=== PATIENT | female | born 1960 | race Asian ===

== ENCOUNTER → 2017-12-06 07:32 | Outpatient (CLI) | payer OTHER, SELFPAY ==
[2017-12-06 09:36] LABS: Thyroid Stim Hormone (TSH) 0.01 uIU/mL (0.358-3.74)
== END ==
PROVIDERS: Family Provider Nurse Practitioner; PCP Nurse Practitioner; Visit Provider Surgery
DX: E89.0 Postprocedural hypothyroidism (principal)
CPT/HCPCS: 36415; 84443

== ENCOUNTER → 2018-02-04 07:44 | Outpatient (CLI) | payer OTHER, SELFPAY ==
[2018-02-04 08:47] LABS: Thyroid Stim Hormone (TSH) 0.03 uIU/mL (0.358-3.74)
== END ==
PROVIDERS: Family Provider Nurse Practitioner; PCP Nurse Practitioner; Visit Provider Surgery
DX: E89.0 Postprocedural hypothyroidism (principal)
CPT/HCPCS: 36415; 84443

== ENCOUNTER → 2018-03-29 08:34 | Outpatient (CLI) | payer OTHER, SELFPAY ==
[2018-03-29 10:01] LABS: Thyroid Stim Hormone (TSH) 0.18 uIU/mL (0.358-3.74)
== END ==
PROVIDERS: Family Provider Nurse Practitioner; PCP Nurse Practitioner; Visit Provider Surgery
DX: E03.9 Hypothyroidism, unspecified (principal)
CPT/HCPCS: 36415; 84443

== ENCOUNTER → 2018-05-14 07:34 | Outpatient (CLI) | payer OTHER, SELFPAY ==
[2018-05-14 09:16] LABS: Thyroid Stim Hormone (TSH) 2.76 uIU/mL (0.358-3.74)
== END ==
PROVIDERS: Family Provider Nurse Practitioner; PCP Nurse Practitioner; Visit Provider Surgery
DX: E89.0 Postprocedural hypothyroidism (principal)
CPT/HCPCS: 36415; 84443

== ENCOUNTER → 2018-06-11 07:38 | Outpatient (CLI) | payer OTHER, SELFPAY ==
[2018-06-12 08:57] LABS: Amylase 57 U/L (25-115); Lipase 197 U/L (73-393); Thyroid Stim Hormone (TSH) 3.06 uIU/mL (0.358-3.74)
== END ==
PROVIDERS: Visit Provider Nurse Practitioner
DX: E89.0 Postprocedural hypothyroidism (principal)
CPT/HCPCS: 82150; 83690; 84443

== ENCOUNTER → 2018-07-08 07:38 | Outpatient (CLI) | payer OTHER, SELFPAY ==
[2018-07-08 08:46] LABS: Thyroid Stim Hormone (TSH) 0.82 uIU/mL (0.358-3.74)
== END ==
PROVIDERS: Family Provider Nurse Practitioner; PCP Nurse Practitioner; Visit Provider Nurse Practitioner
DX: E03.9 Hypothyroidism, unspecified (principal)
CPT/HCPCS: 36415; 84443

== ENCOUNTER → 2018-07-23 07:21 | Outpatient (CLI) | payer OTHER, SELFPAY ==
--- NOTE | 2018-07-23 07:23 | CT_ITS ---
STUDY: CT ABDOMEN AND PELVIS WITH CONTRAST REASON FOR EXAM: Female, 57 years old. Right upper quadrant abdominal pain for 6 months. RADIATION DOSAGE (If Supplied By Facility): CTDIvol = ( 30.9 ) mGy, DLP = ( 873.93 ) mGycm TECHNIQUE: Transaxial images were obtained from the dome of the diaphragm to the symphysis pubis with oral contrast. 100 ml of Isovue 300 contrast was administered. Sagittal and coronal images were reconstructed. Individualized dose optimization techniques were used for this CT. COMPARISON: Prior comparable comparison studies are not available for review at this time. FINDINGS: The visualized lung bases are unremarkable. The visualized portions of the heart are within normal limits. There is decreased attenuation of the liver consistent with steatosis. There are surgical clips in the gallbladder fossa consistent with a prior cholecystectomy. There is a small splenule ventral to the spleen. Normal spleen. Normal pancreas. Normal bilateral adrenal glands. There is a tiny cyst arising from the posterior cortex of the right kidney measuring approximately 4.8 mm in greatest dimension. There is small cystic lesions in the left kidney with the largest measuring 10.4 mm. This is too small to characterize. There is mild left-sided hydronephrosis. There appears to be a calculus at the left ureterovesical junction measuring approximately 6.9 mm in greatest dimension. Normal visualized stomach. There is no evidence for dilated bowel, ascites or pneumoperitoneum. The small bowel has a grossly normal appearance. Stool is visible throughout the colon with scattered colonic diverticula. There is non-visualization of the appendix. Normal abdominal aorta. Normal inferior vena cava. Normal retroperitoneum. The urinary bladder wall appears mildly thickened measuring up to 7.3 mm in thickness. There are calcifications in the right side of the uterus that may represent leiomyomata. There is a small umbilical hernia containing fat. Patient has had discectomies at L3-4, and L4-5 with surgical fusion via interpedicular screws and rods. The imaged thoracic and lumbar vertebral bodies have normal height and alignment. CT/Abdomen/Pelvis WITH Contrast IMPRESSION: 1. Moderate LEFT-sided hydronephrosis apparently related to distal left ureteral calculus at the ureterovesical junction. The calculus may be within a ureterocele. 2. Bilateral renal cysts. 3. Hepatic steatosis. 4. Cholecystectomy. Electronically Signed: Blanche Cook MD at 7:32 EDT , Service support ,
--- NOTE | 2018-07-23 07:23 | BI_ITS ---
MAMMOGRAPHY - BILATERAL SCREENING 3-D ELIAZAR SYNTHESIS REASON FOR EXAM: Female, 57 years old. Bilateral Screening 3-D tomosynthesis PERTINENT HISTORY: Asymptomatic. Family breast carcinoma, sister age 58 and paternal cousin 50s. TECHNIQUE: 2-D mammograms and 3-D Eliazar synthesis of the breast (s) were performed. CAD was performed. COMPARISON: 04/12/2017, 12/14/2015 and 10/06/2014. FINDINGS: The breast composition is heterogeneously dense that can obscure small breast masses. Scattered benign calcifications are seen. No dense spiculated masses or suspicious microcalcifications are identified. No architectural distortion is identified. There is no skin thickening or retraction. There has been no significant change since the prior study. BI/SCREENING MAMM (CAD), BILAT IMPRESSION: No mammographic signs of malignancy. Routine yearly mammograms recommended. ASSESSMENT CATEGORY: BIRADS Category 1: Negative. A letter regarding these results will be sent to the patient by the facility within 30 days. FOLLOW UP RECOMMENDATION: Yearly follow up mammogram recommended. (A) Any palpable lesion if present should be followed based on clinical grounds and biopsy performed if clinically persistent for 3 months or increasing size. Approximately 10% of breast cancers are not detected by mammography. A normal mammogram should not delay biopsy of a clinically suspicious abnormality. Dense breast tissue may obscure neoplasm. Electronically Signed: Romulo Rivera, at 13:21 EDT Tel , Service support ,
== END ==
PROVIDERS: Family Provider Nurse Practitioner; PCP Nurse Practitioner; Visit Provider Nurse Practitioner
DX: N13.2 Hydronephrosis with renal and ureteral calculous obstruction (principal); K76.0 Fatty (change of) liver, not elsewhere classified; R10.11 Right upper quadrant pain; Z12.31 Encounter for screening mammogram for malignant neoplasm of breast
CPT/HCPCS: 74177; 77063; 77067; Q9967

== ENCOUNTER → 2018-07-26 14:21 | Outpatient (CLI) | payer OTHER, SELFPAY ==
--- NOTE | 2018-07-26 14:28 | CDU_ITS ---
Reason For Study: Bruit/Vertigo Rt. Velocities/BP Lt. Velocities/BP Prox CCA 89.7/31.1 cm/sec. Prox CCA 101/38.5 cm/sec. Mid CCA 102/35.8 cm/sec. Mid CCA 107/40.9 cm/sec. Dist CCA 86.2/29.9 cm/sec. Dist CCA 99.8/33.8 cm/sec. Prox ICA 106/33 cm/sec. Prox ICA 91.5/32.8 cm/sec. Mid ICA 81.5/28.7 cm/sec. Mid ICA 72.7/28.1 cm/sec. Dist ICA 63.9/29.9 cm/sec. Dist ICA 69.8/31.1 cm/sec. Rt. ICA/CCA = 1.18. Lt. ICA/CCA = 0.91. Prox ECA 119/34.6 cm/sec. Prox ECA 85.6/22 cm/sec. Rt. Vert. 51.1/18.9 cm/sec. Lt. Vert. 34.8/13.8 cm/sec. Right Extracranial There is no significant atherosclerotic plaque noted in the right common carotid artery. There is heterogeneous, smooth atherosclerotic plaque noted in the right internal carotid artery. There is no significant atherosclerotic plaque noted in the right external carotid artery. Antegrade flow is noted in the right vertebral artery. Left Extracranial There is intimal thickening but no significant atherosclerotic plaque noted in the left common carotid artery. There is intimal thickening but no significant atherosclerotic plaque noted in the left internal carotid artery. There is no significant atherosclerotic plaque noted in the left external carotid artery. Antegrade flow is noted in the left vertebral artery. Procedure Carotid Duplex [id number]. Exam performed in department. Interpretation Summary Minimal smooth plague at the proximal right internal carotid with <50% stenosis. Normal flow right external carotid No hemodynamically significant plague or stenosis proximal left internal carotid with <50% stenosis. Normal flow left external carotid Patent and antegrade vertebrals bilaterally Ordering Physician: FLOWER ARGUETA Referring Physician: Flower Argueta Risk Performed By: Keturah Mcarthur RVT, RDCS and Student
== END ==
PROVIDERS: Family Provider Nurse Practitioner; PCP Nurse Practitioner; Referring Provider Nurse Practitioner; Visit Provider Nurse Practitioner
DX: R09.89 Other specified symptoms and signs involving the circulatory and respiratory systems (principal)
CPT/HCPCS: 93880

== ENCOUNTER 2018-07-30 06:25 | Day surgery (SDC) | payer OTHER, SELFPAY ==
[2018-07-30 06:44] VITALS: BP 99/73; PULSE 77; RESP 16; TEMP 36.1; O2SAT 94; BMI 29.9
[2018-07-30] MEDS: Ciprofloxacin 400 MG/200 ML BAG 200 MG IV (07:50)
--- NOTE | 2018-07-30 08:06 | DCINST_ITS ---
Discharge Diet: No Restrictions Discharge Activity: May not drive while taking narcotic pain medications. May resume sexual activity in: 1 week Call your doctor if you observe: Fever of 101 or Higher, Inability to urinate, Inability to have a bowel movement, Shortness of breath, Chest pain, Calf discomfort, Uncontrolled pain Allergies/Adverse Reactions: Allergies cefdinir Allergy (Verified 07/29/18 08:03) RASH Penicillins Allergy (Verified 07/29/18 08:03) Hives Sulfa (Sulfonamide Antibiotics) Allergy (Verified 07/29/18 08:03) Hives tetracycline [Tetracycline] Allergy (Verified 07/29/18 08:03) Hives ANIMAL DANDER Allergy (Uncoded 07/29/18 08:03) Other CERTAIN BEERS Allergy (Uncoded 07/29/18 08:03) Shortness of breath NOT ALL BEERS OR ALCOHOL. ENVIRONMENTAL Allergy (Uncoded 07/29/18 08:03) Other Medications to take at Discharge Cetirizine HCl [Zyrtec] 10 mg PO QHS 12/12/13 Fenofibrate [Tricor] 145 mg PO QHS 12/12/13 Fesoterodine Fumarate [Toviaz] 8 mg PO DAILY 12/12/13 Hydrochlorothiazide 12.5 mg PO DAILY 12/12/13 Ipratropium [Atrovent Inhaler] 1 puff INHALATION PRN PRN 12/12/13 Lisinopril [Zestril] 10 mg PO DAILY 12/12/13 Aspirin E.C. [Ecotrin] 81 mg PO DAILY@0800 09/18/17 Duloxetine Hcl [Cymbalta] 60 mg PO QHS 09/18/17 Metoprolol Succinate [Toprol Xl] 25 mg PO DAILY 09/24/17 omega 0-nve-oon-fish oil 1,000 mg (120 mg-180 mg) capsule 3 cap PO .q daily cap 06/11/18 levothyroxine 100 mcg capsule 100 mcg PO DAILY 07/25/18 Primary Care Physician: Maribel Clarke NP-C [Primary Care Provider] - Test Results: Test results from this visit will be discussed in further detail at your follow- up appointment, if applicable. Please Follow Up With: Hollie Lebron MD When: call for appt Proposed Discharge Date: 07/30/18
[2018-07-30 08:46] VITALS: BP 95/66; BP 99/73; PULSE 85; RESP 18; TEMP 37.1; O2SAT 96
[2018-07-30 08:54] VITALS: BP 88/62; BP 99/73; PULSE 87; RESP 18; O2SAT 95
--- NOTE | 2018-07-30 08:55 | PCM.IMDPSTOP ---
Immediate Post-Op Note Date of Procedure: 07/30/18 Primary Surgeon/Physician: Hollie Lebron MD grinder set up operator external: Hollie Lebron Pre-Operative Diagnosis: left distal ureteral calculus Post-Operative Diagnosis: same, passed Surgery/Procedure Performed:: cystoscopy, left retrograde pyelogram, left ureteroscopy, urethral dilation Description of Surgical Findings:: small urethral meatus, cystitis cystica. retrograde pyelogram normal. ureteroscopy to renal pelvis. no stones. ureteral orifices close to bladder neck. Estimated Blood Loss: 2cc Specimen's removed: none Type of Anesthesia:: General Special Medications: cipro - Admit VTE Documentation VTE Present on Admission: Yes VTE Mechan Device Prophylaxis: SCD's VTE Pharm Prophylaxis ordered?: No Reason prophylaxis not ordered:: Treatment Not Indicated
--- NOTE | 2018-07-30 08:58 | OP.PN_ITS ---
Immediate Post-Op Note Date of Procedure: 07/30/18 Primary Surgeon/Physician: Hollie Lebron MD funeral driver: Hollie Lebron Pre-Operative Diagnosis: left distal ureteral calculus Post-Operative Diagnosis: same, passed Surgery/Procedure Performed:: cystoscopy, left retrograde pyelogram, left ureteroscopy, urethral dilation Description of Surgical Findings:: small urethral meatus, cystitis cystica. retrograde pyelogram normal. ureteroscopy to renal pelvis. no stones. ureteral orifices close to bladder neck. Estimated Blood Loss: 2cc Specimen's removed: none Type of Anesthesia:: General Special Medications: cipro - Admit VTE Documentation VTE Present on Admission: Yes VTE Mechan Device Prophylaxis: SCD's VTE Pharm Prophylaxis ordered?: No Reason prophylaxis not ordered:: Treatment Not Indicated
[2018-07-30 09:13] VITALS: BP 86/59; BP 99/73; PULSE 86; RESP 18; O2SAT 98
[2018-07-30 09:28] VITALS: BP 88/53; BP 99/73; PULSE 82; RESP 18; TEMP 37.2; O2SAT 98
--- NOTE | 2018-07-30 10:00 | PCM.OPRPT ---
Problem List (1) Left ureteral calculus Status: Acute (2) Hydronephrosis Status: Acute Report of Operation Date of Procedure: 07/30/18 Pre-Operative Diagnosis: left distal ureteral calculus Post-Operative Diagnosis: same, passed Surgery/Procedure Performed:: cystoscopy, left retrograde pyelogram, left ureteroscopy, urethral dilation Description of Surgical Findings:: small urethral meatus, cystitis cystica. retrograde pyelogram normal. ureteroscopy to renal pelvis. no stones. ureteral orifices close to bladder neck. meteorology teacher: Hollie Lebron Type of Anesthesia:: General Special Medications: cipro Specimen's removed: none Estimated Blood Loss (mL): 2cc Description of Procedure: The patient is a 57-year-old female identified as having a distal left ureteral calculus with hydronephrosis on a CT scan evaluation done for pain. After discussing all the risks benefits and alternatives, she agreed to proceed with surgical intervention. She was taken to the operating room and placed on the operating room table. Anesthesia monitored the head, neck, airway, IV access and vital signs throughout the case. Once anesthesia was appropriately administered the patient was placed into dorsal lithotomy position was prepped and draped in usual sterile fashion. The scope was unable to pass through the urethral meatus and the urethra was dilated from 16 [place]ian to 26 [place]ambian without difficulty. At this time a cystourethroscopy was performed revealing no evidence of erythema, mass, ulceration or foreign body within the urinary bladder. The ureteral orifices bilaterally were located very close to the bladder neck on the area of the trigone. The left ureteral orifice was then intubated with an 8 [place]ian cone-tip catheter. A retrograde pyelogram was performed under fluoroscopic visualization revealing no evidence of filling defect or hydronephrosis or dilation of the ureter. At this time a 0.035 Glidewire was passed into the renal pelvis without difficulty. A semirigid ureteroscopy was performed all the way to the level of the renal pelvis confirmed on fluoroscopy. No stone, filling defect or mucosal abnormality was identified. The patient's bladder was then emptied, the scope and the wire were removed. She was then awakened and taken to the recovery room in good condition. There were no complications during this procedure. Grafts/Implants Used: none - Complications none - Admit VTE Documentation VTE Present on Admission: Yes VTE Mechan Device Prophylaxis: SCD's VTE Pharm Prophylaxis ordered?: No Reason prophylaxis not ordered:: Treatment Not Indicated
--- NOTE | 2018-07-30 10:04 | OP.PCM_ITS ---
Problem List (1) Left ureteral calculus Status: Acute (2) Hydronephrosis Status: Acute Report of Operation Date of Procedure: 07/30/18 Pre-Operative Diagnosis: left distal ureteral calculus Post-Operative Diagnosis: same, passed Surgery/Procedure Performed:: cystoscopy, left retrograde pyelogram, left ureteroscopy, urethral dilation Description of Surgical Findings:: small urethral meatus, cystitis cystica. retrograde pyelogram normal. ureteroscopy to renal pelvis. no stones. ureteral orifices close to bladder neck. hotel clerk: Hollie Lebron Type of Anesthesia:: General Special Medications: cipro Specimen's removed: none Estimated Blood Loss (mL): 2cc Description of Procedure: The patient is a 57-year-old female identified as having a distal left ureteral calculus with hydronephrosis on a CT scan evaluation done for pain. After discussing all the risks benefits and alternatives, she agreed to proceed with surgical intervention. She was taken to the operating room and placed on the operating room table. Anesthesia monitored the head, neck, airway, IV access and vital signs throughout the case. Once anesthesia was appropriately administered the patient was placed into dorsal lithotomy position was prepped and draped in usual sterile fashion. The scope was unable to pass through the urethral meatus and the urethra was dilated from 16 [place]er to 26 [place] Konger without difficulty. At this time a cystourethroscopy was performed revealing no evidence of erythema, mass, ulceration or foreign body within the urinary bladder. The ureteral orifices bilaterally were located very close to the bladder neck on the area of the trigone. The left ureteral orifice was then intubated with an 8 [place] Konger cone-tip catheter. A retrograde pyelogram was performed under fluoroscopic visualization revealing no evidence of filling defect or hydronephrosis or dilation of the ureter. At this time a 0.035 Glidewire was passed into the renal pelvis without difficulty. A semirigid ureteroscopy was performed all the way to the level of the renal pelvis confirmed on fluoroscopy. No stone, filling defect or mucosal abnormality was identified. The patient's bladder was then emptied, the scope and the wire were removed. She was then awakened and taken to the recovery room in good condition. There were no complications during this procedure. Grafts/Implants Used: none - Complications none - Admit VTE Documentation VTE Present on Admission: Yes VTE Mechan Device Prophylaxis: SCD's VTE Pharm Prophylaxis ordered?: No Reason prophylaxis not ordered:: Treatment Not Indicated
[2018-07-30 10:15] VITALS: BP 100/66; BP 99/73; PULSE 82; RESP 16; TEMP 36.6; O2SAT 98
== END 2018-07-30 10:17 | disposition home or self-care (01) ==
LOC: SDC 06:25 → AC 06:26
PROVIDERS: Family Provider Nurse Practitioner; PCP Nurse Practitioner; Referring Provider Urology; Visit Provider Urology
PROC: (CPT 52356; principal; 2018-07-30 07:50)
DX: N13.2 Hydronephrosis with renal and ureteral calculous obstruction (principal); Z87.442 Personal history of urinary calculi; I10 Essential (primary) hypertension; R01.1 Cardiac murmur, unspecified; J45.998 Other asthma; E78.00 Pure hypercholesterolemia, unspecified; Z79.82 Long term (current) use of aspirin; Z79.899 Other long term (current) drug therapy
CPT/HCPCS: 52005; 76000; J7120; C1769; J0744; J2405

== ENCOUNTER → 2018-11-06 20:57 | Outpatient (CLI) | payer OTHER, SELFPAY ==
[2018-11-06 18:32] VITALS: BMI 30.7
[2018-11-06 21:21] LABS: Thyroid Stim Hormone (TSH) 6.25 uIU/mL (0.358-3.74)
== END ==
PROVIDERS: Family Provider Nurse Practitioner; PCP Nurse Practitioner; Referring Provider Nurse Practitioner; Visit Provider Nurse Practitioner
DX: E03.9 Hypothyroidism, unspecified (principal)
CPT/HCPCS: 84443

== ENCOUNTER → 2019-01-08 07:45 | Outpatient (CLI) | payer OTHER, SELFPAY ==
[2018-11-06 18:32] VITALS: BMI 30.7
[2019-01-08 09:57] LABS: Thyroid Stim Hormone (TSH) 1.23 uIU/mL (0.358-3.74)
== END ==
PROVIDERS: Family Provider Nurse Practitioner; PCP Nurse Practitioner; Referring Provider Nurse Practitioner; Visit Provider Nurse Practitioner
DX: E03.9 Hypothyroidism, unspecified (principal)
CPT/HCPCS: 36415; 84443

== ENCOUNTER → 2019-07-07 07:37 | Outpatient (CLI) | payer OTHER, SELFPAY ==
[2019-06-26 22:17] VITALS: BMI 30.5
== END ==
PROVIDERS: Family Provider Nurse Practitioner; PCP Nurse Practitioner; Referring Provider Nurse Practitioner; Visit Provider Nurse Practitioner
DX: E03.9 Hypothyroidism, unspecified (principal)
CPT/HCPCS: 36415; 84443

== ENCOUNTER 2020-01-23 08:34 | Emergency (ER) | payer OTHER, SELFPAY ==
[2020-01-12 18:51] VITALS: BMI 31.2
[2020-01-23 08:36] VITALS: BP 120/86; PULSE 119; RESP 16; TEMP 36.4; O2SAT 97
[2020-01-23 08:40] VITALS: BP 125/86; PULSE 120; RESP 16; TEMP 36.4; O2SAT 96; BMI 31.0
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
[2020-01-23] MEDS: Ibuprofen 600 MG Tablet PO (09:36)
[2020-01-23 10:46] VITALS: BP 106/83; PULSE 107; RESP 16; O2SAT 98
== END 2020-01-23 10:48 | disposition home or self-care (01) ==
LOC: ED 09:54
PROVIDERS: Emergency Provider Emergency Medicine; PCP Nurse Practitioner; Referring Provider Emergency Medicine
DX: S80.02XA Contusion of left knee, initial encounter (principal); S20.212A Contusion of left front wall of thorax, initial encounter; V49.88XA Car occupant (driver) (passenger) injured in other specified transport accidents, initial encounter; Y92.410 Unspecified street and highway as the place of occurrence of the external cause; Y93.89 Activity, other specified; I10 Essential (primary) hypertension; E03.9 Hypothyroidism, unspecified; F17.200 Nicotine dependence, unspecified, uncomplicated
CPT/HCPCS: 71046; 73564; 99285

== ENCOUNTER 2020-01-23 12:55 | Observation (INO) | payer OTHER, SELFPAY ==
[2020-01-23] VITALS (7 sets, daily range): BP systolic 107–127; BP diastolic 59–86; PULSE 65–113; RESP 16–17; TEMP 36.3–36.8; O2SAT 96–98; BMI 31.0; BMI 30.4; BMI 30.3
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
[2020-01-23 13:42] LABS: Absolute Lymphocyte Count 3.31 X10^3/uL (0.83-4.51); Absolute Neutrophil Count 3.4 X10^3/uL (2.0-7.7); Basophil# 0.04 X10^3/uL; Basophil% 0.6 % (0-1); Eosinophils% 2.8 % (0-5); Hematocrit 41.1 % (37-47); Hemoglobin 13.8 g/dL (12.0-15.0); Lymphocyte # 3.31 X10^3/ul (4.0); Lymphocyte % 45.5 % (19-41); Mean Corp Hgb Conc 33.6 g/dL (32-36); Mean Corpuscular Hgb 29.2 pg (27.0-32.0); Mean Corpuscular Volume 87.1 fL (81-99); Mean Platelet Vol. 8.9 fl (6.2-12.0); Monocyte# 0.32 X10^3/uL; Monocyte% 4.4 % (0-10); NRBC Flagged by Analyzer 0 % (0-5); Neutrophil # 3.37 X10^3/uL (2.7-7.7); Neutrophil % 46.3 % (47-70); Platelet Count 366 K/mm3 (150-450); RBC Distribution Width CV 12.5 % (11.6-14.6); RBC Distribution Width SD 39.8 fl (35.1-43.9); Red Blood Count 4.72 M/mm3 (4.2-5.4); White Blood Count 7.3 K/mm3 (4.4-11.0)
[2020-01-23 13:56] LABS: Anion Gap 8 (5-15); BUN 13 mg/dL (7-18); BUN/Creat Ratio 17.7 RATIO (10-20); Calcium,Total 9.3 mg/dL (8.5-10.1); Chloride 104 mmol/L (98-107); Creatinine, Serum 0.74 mg/dL (0.55-1.02); EST Glomerular Filtration Rate 86 mL/min (>60); Est Glom Filt Rate - Afr Amer 104 mL/min (>60); Glucose 115 mg/dL (74-106); Sodium Level 138 mmol/L (136-145)
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
[2020-01-23] MEDS: Acetaminophen 325 MG Tablet 650 MG PO (20:22)
[2020-01-23] MEDS: Aspirin 325 MG Tablet PO (20:22)
[2020-01-23] MEDS: Loratadine 10 MG Tablet PO (21:30)
[2020-01-23] MEDS: DULoxetine Hcl 60 MG Capsule PO (21:30)
[2020-01-23] MEDS: Fenofibrate 145 MG Tablet PO (21:30)
[2020-01-23] MEDS: 0.9% Saline Lock 10 ML Syringe IV (21:30)
[2020-01-24 01:40] VITALS: O2SAT 98
[2020-01-24 03:00] VITALS: PULSE 75
[2020-01-24 03:30] VITALS: BP 100/65; BP 109/71; BP 121/84; PULSE 79; PULSE 85; PULSE 87; RESP 18; TEMP 36.4; O2SAT 97
[2020-01-24] MEDS: Levothyroxine 88 MCG Tablet PO (05:22)
[2020-01-24 07:01] VITALS: PULSE 82
[2020-01-24 08:03] LABS: Cholesterol 239 mg/dL (200); High Density Lipoprotein 45 mg/dL; Triglycerides 228 mg/dL; Very Low Density Lipoprotein 46 mg/dL (5-40)
[2020-01-24] MEDS: Aspirin 81 MG TAB.CHEW PO (08:27)
[2020-01-24] MEDS: Tolterodine Tartrate 4 MG CAP.SA PO (08:27)
[2020-01-24] MEDS: Multivitamins,Ther W-Minerals Tablet 1 TABLET PO (08:27)
[2020-01-24] MEDS: hydroCHLOROthiazide 12.5mg 12.5 MG PO (08:28)
[2020-01-24] MEDS: Lisinopril 10 MG Tablet PO (08:28)
[2020-01-24 09:24] LABS: Anion Gap 8 (5-15); BUN 12 mg/dL (7-18); BUN/Creat Ratio 18.7 RATIO (10-20); Calcium,Total 9.1 mg/dL (8.5-10.1); Chloride 107 mmol/L (98-107); Creatinine, Serum 0.64 mg/dL (0.55-1.02); EST Glomerular Filtration Rate 101 mL/min (>60); Est Glom Filt Rate - Afr Amer 122 mL/min (>60); Estimated Creatinine Clearance 99.48 ml/min; Glucose 103 mg/dL (74-106); Magnesium 1.6 mg/dL (1.6-2.6); Potassium 3.8 mmol/L (3.5-5.1); Sodium Level 139 mmol/L (136-145)
[2020-01-24 09:30] VITALS: BP 116/80; PULSE 85; RESP 16; TEMP 36.7; O2SAT 95
[2020-01-24] MEDS: Atorvastatin Calcium 40 MG Tablet PO (10:13)
--- NOTE | 2020-01-24 10:20 | PCM.DC ---
- Discharge Diagnoses Current Active Problems: Current Active and Chronic Problems (Last Reviewed 01/23/20 @ 17:[address] Terrell Lawson, DO) Posttraumatic amnesia (Acute) Hypokalemia (Acute) Transient confusion (Acute) You will use the following diet at home:: Cardiac Your food should be the consistency of: Regular Discharge Activity: May Not Drive - until sees PCP Weight Bearing Status: Weight bearing as tolerated Call your doctor if you observe: Fever of 101 or Higher, Inability to urinate, Inability to have a bowel movement, Using more than one pad per hour, Shortness of breath, Dizziness, Fainting spells, Swelling in the ankles, Chest pain, Prolonged hiccoughing, Increased palpitations (irregular heartbeat), Calf discomfort, Uncontrolled pain Allergies/Adverse Reactions: Allergies cefdinir Allergy (Verified 01/23/20 12:58) RASH Penicillins Allergy (Verified 01/23/20 12:58) Hives Sulfa (Sulfonamide Antibiotics) Allergy (Verified 01/23/20 12:58) Hives tetracycline [Tetracycline] Allergy (Verified 01/23/20 12:58) Hives ANIMAL DANDER Allergy (Uncoded 01/23/20 12:58) Other CERTAIN BEERS Allergy (Uncoded 01/23/20 12:58) Shortness of breath NOT ALL BEERS OR ALCOHOL. ENVIRONMENTAL Allergy (Uncoded 01/23/20 12:58) Other Medications to take at Discharge fesoterodine 8 mg tablet,extended release 24 hr 8 mg PO DAILY 06/26/19 duloxetine 60 mg capsule,delayed release 60 mg PO QHS #90 cap 01/12/20 fenofibrate nanocrystallized 145 mg tablet 145 mg PO QHS #90 tab 01/12/20 hydrochlorothiazide 12.5 mg capsule 12.5 mg PO DAILY #90 cap 01/12/20 levothyroxine 88 mcg tablet 88 mcg PO DAILY #90 tab 01/12/20 lisinopril 10 mg tablet 10 mg PO DAILY #90 tab 01/12/20 Aspirin/Acetaminophen/Caffeine [Excedrin Migraine Caplet] 2 tab PO DAILY PRN 01/23/20 Multivitamin with Minerals [Multiple Vitamin] 1 tab PO DAILY 01/23/20 Zolpidem Tartrate [Ambien] 10 mg PO QHS PRN 01/23/20 Atorvastatin Calcium [Lipitor] 40 mg PO DAILY #30 tab 01/24/20 Cetirizine HCl [Zyrtec] 10 mg PO QHS PRN PRN #0 01/24/20 The following prescriptions were given: Atorvastatin Calcium [Lipitor] 40 mg PO DAILY #30 tab Transmission Status: Pending to [facility] Primary Care Physician: Maribel Clarke NP-C [Primary Care Provider] - Please follow up with your Primary Care Physician in: IN 1-2 WEEKS Test Results: Test results from this visit will be discussed in further detail at your follow-up appointment, if applicable. Please Follow Up With: Gerardo Bob MD When: IN 2-3 Weeks for episode of AMS, Confusion, possible concussion
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
[2020-01-24 11:02] VITALS: PULSE 84
[2020-01-24 11:50] VITALS: BMI 30.3
== END 2020-01-24 10:22 | disposition home or self-care (01) ==
LOC: ED 16:18 → PCU 01-24 06:56
PROVIDERS: Emergency Provider Emergency Medicine; PCP Nurse Practitioner; Visit Provider Internal Medicine
DX: R41.3 Other amnesia (principal); E87.6 Hypokalemia; E03.9 Hypothyroidism, unspecified; I10 Essential (primary) hypertension; R07.89 Other chest pain; F39 Unspecified mood [affective] disorder; F17.200 Nicotine dependence, unspecified, uncomplicated; E78.5 Hyperlipidemia, unspecified; K21.9 Gastro-esophageal reflux disease without esophagitis; J45.909 Unspecified asthma, uncomplicated; M19.90 Unspecified osteoarthritis, unspecified site; D68.51 Activated protein C resistance; M25.562 Pain in left knee; M25.561 Pain in right knee; R47.81 Slurred speech; M79.7 Fibromyalgia; G43.909 Migraine, unspecified, not intractable, without status migrainosus; Z79.899 Other long term (current) drug therapy; Z79.82 Long term (current) use of aspirin; Z87.828 Personal history of other (healed) physical injury and trauma; R00.0 Tachycardia, unspecified; H53.8 Other visual disturbances
CPT/HCPCS: 36415; 70450; 70544; 70549; 70551; 80048; 80061; 83735; 84484; 85025; 92523; 93005; 94762; 95819; 99218; 99285; A9575; A4216; G0378

== ENCOUNTER → 2020-01-29 09:48 | Outpatient (CLI) | payer OTHER, SELFPAY ==
[2020-01-29 09:25] VITALS: BMI 30.8
[2020-01-29 10:38] LABS: Vitamin B12 693 pg/mL (211-911)
[2020-01-29 10:54] LABS: AST(SGOT) 23 U/L (15-37); Alanine Aminotransfer ALT/SGPT 40 U/L (13-56); Albumin, Serum 4.3 g/dL (3.2-5.0); Alkaline Phosphatase 69 U/L (45-117); Bilirubin, Direct 0.08 mg/dL (0.00-0.30); Globulin 3.7 g/dL (2.2-4.2); Thyroid Stim Hormone (TSH) 2.78 uIU/mL (0.358-3.74)
== END ==
PROVIDERS: PCP Nurse Practitioner; Referring Provider Psychiatry & Neurology Neurology; Visit Provider Psychiatry & Neurology Neurology
DX: R41.0 Disorientation, unspecified (principal); I10 Essential (primary) hypertension; E03.9 Hypothyroidism, unspecified
CPT/HCPCS: 36415; 80076; 82607; 82746; 84443

== ENCOUNTER → 2020-02-06 20:04 | Outpatient (CLI) | payer OTHER, SELFPAY ==
[2020-01-29 09:25] VITALS: BMI 30.8
== END ==
PROVIDERS: PCP Nurse Practitioner; Visit Provider Psychiatry & Neurology Neurology
DX: G47.30 Sleep apnea, unspecified (principal)
CPT/HCPCS: 95810

== ENCOUNTER → 2020-03-11 20:00 | Outpatient (CLI) | payer OTHER, SELFPAY ==
[2020-02-19 07:58] VITALS: BMI 30.3
== END ==
PROVIDERS: PCP Nurse Practitioner; Referring Provider Nurse Practitioner Acute Care; Visit Provider Nurse Practitioner Acute Care
DX: G47.33 Obstructive sleep apnea (adult) (pediatric) (principal)
CPT/HCPCS: 95811

== ENCOUNTER → 2020-03-23 09:52 | Outpatient (CLI) | payer OTHER, SELFPAY ==
[2020-03-04 08:47] VITALS: BMI 30.3
== END ==
PROVIDERS: PCP Nurse Practitioner; Visit Provider Nurse Practitioner Acute Care
DX: G47.33 Obstructive sleep apnea (adult) (pediatric) (principal)

== ENCOUNTER → 2020-03-25 11:29 | Outpatient (CLI) | payer OTHER, SELFPAY ==
[2020-03-04 08:47] VITALS: BMI 30.3
== END ==
PROVIDERS: PCP Nurse Practitioner; Referring Provider Nurse Practitioner Acute Care; Visit Provider Nurse Practitioner Acute Care
DX: G47.33 Obstructive sleep apnea (adult) (pediatric) (principal)

== ENCOUNTER → 2020-12-24 13:59 | Outpatient (CLI) | payer OTHER, SELFPAY ==
[2020-12-23 18:56] VITALS: BMI 31.1
== END ==
PROVIDERS: PCP Nurse Practitioner; Visit Provider Nurse Practitioner
DX: E03.9 Hypothyroidism, unspecified (principal)
CPT/HCPCS: 36415; 84443

== ENCOUNTER 2021-03-16 08:00 | Outpatient (RCR) | payer OTHER, SELFPAY ==
[2021-01-10 08:55] VITALS: BMI 30.4
--- NOTE | 2021-02-15 09:32 | HP.OTEVAL_ITS ---
Patient's Visit Information DANIEL WHITE is a 60 year old F, referred to Occupational Therapy by PIERRE ZHAO, with a diagnosis of left CTS, left CMC. Date of Evaluation: 02/14/21 Occupational Therapist: Jackie Lau, NIKOLAI/Benjamin, CHT - Subjective This 60 year old female was seen for OT eval with dx with left CTS, localized primary osteoarthritis of CMC joint- , trigger finger left middle finger. pt states she noticed her thumb started to bother her last year when she went started to play golf again. pt states he clubs are newer but has pain when she plays- pt did see Dr. Forbes on 02/01/21 to discuss with pt options for her dx of CTS, trigger finger and her cmc arthritis. pt opted to cont. with cortisone shot, bracing 1st. - Pain left hand 4 Pain Intensity Range: 1, 5 - ROM CMC: left 15 right 15 MP: left 40 right 50 IP: left 40 right 60 Radial Abduction: left 30 right 35 - Strength Inspector Multifocal Lens: left 30#right 50# Lateral Pinch: left 6# right 18# Tripod Pinch: left 8# with pain right 14# Strength Comments: pt has pain with resistive pinch - Sensation Thumb: right 2.83 left 2.83 Index: right 2.83 left 2.83 Middle: right 2.83 left 2.83 Ring: right 2.83 left 2.83 Little: right 2.83 left 2.83 Sensation Comments: denies during the day- stated would have tingling at night or wake up with tingling while sleeping - Goals Goal:: pt will demo a 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 with ADLs and IADLS by d.c Goal:: Pt will report pain no greater than 1/10 with use of affected hand with BADLs and IADLs by d/c. Goal:: Pt will demo understanding of joint protection and ergonomics when performing BADLs and IADLs by d/c. Pt will demo understanding of adaptive Equipment use to decrease stress on joints to allow pt to perform BADSL and IADLS at OLMAN level. Goal:: Pt will demo ind. Donning/doffing of custom orthosis by end of 1st session. Pt will demonstrate understanding of orthosis use and precautions by end of 1st session and demonstrate knowledge of returning to clinic if orthosis needs adj. to increase comfort by end of 1st session. - Rehabilitation General Assessment: pt arrives to OT 1 week and 6 days from cortisone shot in left cmc, left MF, and and Carpal tunnel region- pt states she has noticed the constant pain and now just has pain at times of joint stress. PT demo with li mited left thumb ROM and pain with lateral and tripod pinch. pt is limited with ADLs and IADls at this time due to pain. pt would benefit from skilled OT services 1x week for 4 weeks to ed. pt on joint protection, supportive bracing, and conservative modalities to decrease pain and increase her IND with ADLs and IADLs. Today therapist mariposa. custom thumb spica orthosis with IP free for night use. Therapist will cont. to ed. pt on thumb care, joint protection and modifications to golf pump room operator as able. Rehabilitation Potential: Good - Anticipated Interventions A/AAROM/PROM, Orthoses, Joint Protection/Energy Conservation, Ergonomic Education, Education re assistive Equipment, Education re Diagnosis Other Interventions: thumb stabilization exercises - Visit Plan Frequency: 1x/Week Duration: 4 Weeks TEXT: Thank you for the opportunity to evaluate your patient. For Medicare and Medicare HMO plans, please review the plan of care and approve it. It will need to be FAXED BACK to us at [phone] for Medicare purposes. Please let me know if there are questions or concerns regarding this plan of care. Physician Signature: Date:
--- NOTE | 2021-07-27 09:41 | HP.OT.NRP ---
DANIEL WHITE was seen in my office for initial evaluation on 02/14/21. The following Plan of Care was established for this patient: Initial Frequency: 1x/Week Initial Duration: 4 Weeks Plan: cont with PRE. thumb stabilization ex Anticipated Interventions: A/AAROM/PROM, Orthoses, Joint Protection/Energy Conservation, Ergonomic Education, Education re assistive Equipment, Education re Diagnosis Other Interventions: thumb stabilization exercises This patient was last seen in our office 03/16/21. Pertinent comments regarding their Occupational therapy will appear below: pt last seen 03/16/21 and due to time lapse in services pt d/c At this point I will be discontinuing this patient from occupational therapy. I would be happy to see this patient again in the future if found appropriate by the physician. Thank you! Jackie Lau, OTR/L, CHT
== END 2021-03-16 19:00 | disposition home or self-care (01) ==
LOC: OT 08:00
PROVIDERS: PCP Nurse Practitioner
DX: G56.02 Carpal tunnel syndrome, left upper limb (principal); M18.12 Unilateral primary osteoarthritis of first carpometacarpal joint, left hand; M65.332 Trigger finger, left middle finger
CPT/HCPCS: 97035; 97110; 97140; 97165; 97166; 97760

== ENCOUNTER → 2021-04-27 06:37 | Outpatient (CLI) | payer OTHER, SELFPAY ==
[2021-01-10 08:55] VITALS: BMI 30.4
--- NOTE | 2021-04-27 06:38 | MRI_ITS ---
STUDY: MRI RIGHT KNEE REASON FOR EXAM: Right knee pain and swelling for 2-3 years, ACL repair in 1998. TECHNIQUE: Standardized fat and water weighted pulse sequences were obtained in all 3 orthogonal planes. COMPARISON: Radiographs 01/10/2021 and MRI report 03/11/2009. FINDINGS: There is a very small vertical/oblique tear of the inferior articular surface of the posterior horn of the medial meniscus (proton-density sagittal images 29, 30). There is arthrosis of the medial femorotibial compartment with small marginal osteophytes of the medial femoral condyle and chondral thinning/irregularity of the medial femoral condyle (T2 sagittal image 17). Normal medial femoral condyle and tibial plateau. Normal medial collateral ligamentous complex (MCL). Normal distal semimembranosus, gracilis and semitendinosus tendons. There is a very small oblique tear of the inferior articular surface of the posterior horn of the lateral meniscus (proton-density sagittal image 15). Normal hyaline cartilage of the lateral femorotibial compartment. There are small marginal osteophytes of the lateral femoral condyle. Normal lateral femoral condyle and tibial plateau. Normal proximal tibiofibular articulation. Normal lateral collateral (fibular) ligament. Normal popliteus tendon. Normal biceps femoris tendon. The anterior cruciate ligament graft is intact (series 6 image 10). Normal posterior cruciate ligament (PCL). Normal congruent patellofemoral articulation. There is arthrosis of the patellofemoral compartment with small marginal osteophytes and partial-thickness chondral loss (T2 sagittal image 11). Normal medial and lateral patellar retinaculum. Normal visualized quadriceps tendon. There is an enthesophyte at the superior pole of the patella. Normal patellar tendon. Normal Hoffa''s fat pad. There is a small joint effusion. There is a small popliteal cyst (T2 sagittal images 18-20). There are postoperative changes of the distal femur and proximal tibia from anterior cruciate ligament reconstruction. There is a small cyst in the proximal tibia adjacent to the tibial bone tunnel. MRI/Lower Ext Joint Only (Routine) IMPRESSION: Very small medial and lateral meniscal tears. Arthrosis of the medial femorotibial and patellofemoral compartments Intact anterior cruciate ligament graft. Small joint effusion. Small popliteal cyst. Electronically Signed: Ford Greco MD at 8:27 EDT Tel , Service support ,
== END ==
PROVIDERS: PCP Nurse Practitioner; Referring Provider Orthopaedic Surgery; Visit Provider Orthopaedic Surgery
DX: M23.91 Unspecified internal derangement of right knee (principal); S83.241A Other tear of medial meniscus, current injury, right knee, initial encounter; S83.281A Other tear of lateral meniscus, current injury, right knee, initial encounter; X58.XXXA Exposure to other specified factors, initial encounter; M17.11 Unilateral primary osteoarthritis, right knee; M71.21 Synovial cyst of popliteal space [Baker], right knee
CPT/HCPCS: 73721

== ENCOUNTER → 2021-06-29 06:53 | Outpatient (CLI) | payer OTHER, SELFPAY ==
--- NOTE | 2021-06-29 06:54 | CT_ITS ---
STUDY: CT RIGHT LOWER EXTREMITY WITHOUT CONTRAST REASON FOR EXAM: Right knee osteoarthritis, surgical planning. TECHNIQUE: Transaxial CT imaging of the lower extremity was performed. Coronal and sagittal images were reformatted. Individualized dose optimization techniques were used for this CT. COMPARISON: MRI images 04/27/2021. FINDINGS: Knee: There are marginal osteophytes and joint space narrowing of the medial femorotibial compartment (coronal reconstruction 26). There are small marginal osteophytes of the lateral femoral condyle without joint space narrowing of the lateral femorotibial compartment. There are marginal osteophytes of the patellofemoral compartment with joint space narrowing (axial image 283). There are postoperative changes of the distal femur and proximal tibia from anterior cruciate ligament reconstruction. Normal proximal tibiofibular articulation. There is no joint effusion. The quadriceps tendon is grossly normal. There is patellar enthesopathy. The patellar tendon is grossly normal. Normal Hoffa''s fat pad. There is chondrocalcinosis in the medial and lateral menisci. Hip: There are small marginal osteophytes of the lateral acetabulum without joint space narrowing of the right hip. There are small calcified uterine fibroids. Ankle: Normal tibiotalar, posterior subtalar, talonavicular and calcaneocuboid articulations. There is a posterior calcaneal enthesophyte. CT/Extremity Lower without Contra IMPRESSION: Right knee osteoarthritis. Electronically Signed: Ford Greco MD at 10:21 EDT Tel , Service support ,
== END ==
PROVIDERS: PCP Nurse Practitioner; Referring Provider Orthopaedic Surgery; Visit Provider Orthopaedic Surgery
DX: M17.11 Unilateral primary osteoarthritis, right knee (principal)
CPT/HCPCS: 73700

== ENCOUNTER 2021-07-26 05:31 | Day surgery (SDC) | payer OTHER, SELFPAY ==
[2021-07-13 11:22] LABS: Basophil# 0.05 X10^3/uL; Basophil% 0.7 % (0-1); Eosinophil# 0.13 X10^3/uL; Eosinophils% 1.7 % (0-5); Hematocrit 41.3 % (37-47); Hemoglobin 13.6 g/dL (12.0-15.0); Lymphocyte % 38.4 % (19-41); Mean Corp Hgb Conc 32.9 g/dL (32-36); Mean Corpuscular Hgb 28.9 pg (27.0-32.0); Mean Corpuscular Volume 87.9 fL (81-99); Mean Platelet Vol. 9.4 fl (6.2-12.0); Monocyte# 0.43 X10^3/uL; Monocyte% 5.7 % (0-10); NRBC Flagged by Analyzer 0 % (0-5); Neutrophil # 4.02 X10^3/uL (2.7-7.7); Neutrophil % 53.1 % (47-70); Platelet Count 461 K/mm3 (150-450); RBC Distribution Width CV 12.3 % (11.6-14.6); RBC Distribution Width SD 39.7 fl (35.1-43.9); White Blood Count 7.6 K/mm3 (4.4-11.0)
[2021-07-13 11:46] LABS: Anion Gap 9 (5-15); BUN 15 mg/dL (7-18); BUN/Creat Ratio 20.3 RATIO (10-20); Calcium,Total 9.7 mg/dL (8.5-10.1); Chloride 104 mmol/L (98-107); Creatinine, Serum 0.74 mg/dL (0.55-1.02); EST Glomerular Filtration Rate 85 mL/min (>60); Est Glom Filt Rate - Afr Amer 103 mL/min (>60); Glucose 98 mg/dL (74-106); Potassium 3.9 mmol/L (3.5-5.1); Sodium Level 138 mmol/L (136-145)
[2021-07-13 11:54] LABS: Magnesium 1.8 mg/dL (1.6-2.6); Thyroid Stim Hormone (TSH) 0.74 uIU/mL (0.358-3.74)
[2021-07-13 12:24] LABS: Prothrombin Time (Protime)PT. 12.9 SECONDS (11.7-14.9)
[2021-07-13 12:25] LABS: Partial Thromboplast Time 31.7 Seconds (24.1-36.2)
--- NOTE | 2021-07-13 13:01 | EKG12_ITS ---
Test Reason : PRE OP Blood Pressure : / mmHG Vent. Rate : 110 BPM Atrial Rate : 110 BPM P-R Int : 144 ms QRS Dur : 076 ms QT Int : 330 ms P-R-T Axes : 058 067 050 degrees QTc Int : 446 ms Sinus tachycardia Otherwise normal ECG Confirmed by TOYA OROPEZA, MARC ([id number]), editor index RAMAKRISHNA THOMAS ([id number]) on 07/14/2021 8:28:44 AM Referred By: Kvng Black Confirmed By:MARC PITTMAN MD
[2021-07-14 17:58] LABS: Fructosamine 209 umol/L (0-285)
[2021-07-26] VITALS (12 sets, daily range): BP systolic 98–143; BP diastolic 61–107; PULSE 79–111; RESP 16–18; TEMP 36.3–37.2; O2SAT 77–99; BMI 29.7
[2021-07-26] MEDS: Gabapentin 600 MG Tablet PO (06:42)
[2021-07-26] MEDS: Acetaminophen 500 MG Tablet 1000 MG PO ×2 (06:42→14:06)
[2021-07-26] MEDS: Lactated Ringers 1,000 ML 100 ML IV (06:43)
[2021-07-26] MEDS: Vancomycin IV 1,000 MG/200 ML BAG 200 MG IV (06:45)
[2021-07-26] MEDS: Scopolamine 1mg/72hr Patch 1 PATCH TD (06:48)
[2021-07-26 07:16] LABS: Bedside Glucose 111 mg/dL (70-110)
--- NOTE | 2021-07-26 07:21 | HP.PCM_ITS ---
History and Physical Date of Admission: 07/26/21 Date of Service: 05/16/21 MR#:[id number]:[id number]: DANIEL WHITE [facility] #:[id number]:1960 Provider:Dr. Kvng Black DOAge/Sex: 60/F [facility] [place]:Signed Intake Intake Visit Reasons: MRI f/u Is patient in pain?: Yes Allergies cefdinir Allergy (Verified 05/16/21 10:56) RASH Penicillins Allergy (Verified 05/16/21 10:56) Hives Sulfa (Sulfonamide Antibiotics) Allergy (Verified 05/16/21 10:56) Hives tetracycline [Tetracycline] Allergy (Verified 05/16/21 10:56) Hives ANIMAL DANDER Allergy (Uncoded 01/10/21 08:56) Other CERTAIN BEERS Allergy (Uncoded 01/10/21 08:56) Shortness of breath ENVIRONMENTAL Allergy (Uncoded 01/10/21 08:56) Other Medications multivitamin with minerals 1 tab PO DAILY 01/23/20 [History Confirmed 05/16/21] aspirin 81 mg PO DAILY@0800 #30 tab 01/24/20 [Rx Confirmed 05/16/21] atorvastatin 40 mg tablet 40 mg PO DAILY #90 tab 05/03/20 [Rx Confirmed 05/16/21] fesoterodine 8 mg tablet,extended release 24 hr 8 mg PO DAILY #90 tab 05/03/20 [Rx Confirmed 05/16/21] duloxetine 60 mg capsule,delayed release 60 mg PO QHS #90 cap 12/23/20 [Rx Confirmed 05/16/21] fenofibrate nanocrystallized 145 mg tablet 145 mg PO QHS #90 tab 12/23/20 [Rx Confirmed 05/16/21] hydrochlorothiazide 12.5 mg capsule 12.5 mg PO DAILY #90 cap 12/23/20 [Rx Co nfirmed 05/16/21] lisinopril 10 mg tablet 10 mg PO DAILY #90 tab 12/23/20 [Rx Confirmed 05/16/21] levothyroxine 88 mcg tablet 88 mcg PO DAILY #90 tab 12/24/20 [Rx Confirmed 05/16/21] [facility] Medical History (Updated 05/16/21 @ 11:[address] Kvng Black DO) Abnormal uterine bleeding Asthma Back pain Chronic GERD Depression Factor 5 Leiden mutation, heterozygous Fatigue Fibromyalgia Goiter diffuse, adenomatous Hay fever Hyperlipidemia LDL goal <130 Hypertension Insomnia disorder Kidney stones Knee pain Migraines Osteoarthritis Sleep apnea in adult Stress incontinence in female UTERINE ABLASION Surgical History (Updated 05/16/21 @ 11:[address] Kvng Black DO) H/O lithotripsy History of section, classical History of cholecystectomy History of lumbar fusion S/P ACL surgery S/P dilatation and curettage Status post total thyroidectomy Family History Sister Breast cancer Cancer Diabetes Endometriosis Hypertension Thyroid disorder liver disease early 60 developing liver failure Aunt Breast cancer Cancer Diabetes Heart disease Hypertension Kidney disease kidney failure and on dialysis also diabetic Father CAD (coronary artery disease) Cancer Diabetes Heart disease Hypertension Myocardial infarction liver disease hepatobiliary failure Grandfather CAD (coronary artery disease) Diabetes Heart disease Hypertension Myocardial infarction Sudden cardiac Grandmother CVA (cerebral vascular accident) Diabetes Heart disease Hypertension Mother Cancer Diabetes Heart disease Hypertension Thyroid disorder lupus Brother Diabetes Heart disease Hypertension Kidney disease diabetic only one working kidney and it is working only 30 % Daughter lupus Social History (Updated 01/10/21 @ 11:[address] Kvng Black DO) household members: spouse and children housing: house Smoking Status: Never smoker alcohol intake: current details: socially substance use type: does not use what type of physical activity do you participate in: walking frequency: 1-2 times per week do you feel safe at home: Yes HPI MRI f/u Details: Parts of this documentation were recorded by a scribe, this doc umentation accurately reflects the service provided and the decisions made by me, Dr. Kvng Black DO 05/16/21 [id number]. DANIEL WHITE is a 60 year old F here today for a followup after her right knee M RI. Patient states that she continues to have the same symptoms within her right knee. Patient notes that her pain is over her medial knee. She has occasional popping and clicking. She uses voltaren gel for her knee which is not helpful. She takes ibuprofen if she has swelling. Ortho Exam General General: Yes no acute distress Neurologic: Yes alert Psychologic: Yes reasonable and appropriate Right Knee Skin/Wound: Yes CDI, No erythema, No ecchymosis and Yes swelling KNEE: Skin/Wound: Yes CDI, No erythema, No ecchymosis and No swelling Knee ROM: Yes ROM-Extension -20 to 0 and Yes ROM-Flexion 0-140 (120) Examination: Yes Med jt line tenderness, No Lat jt line tenderness, Yes Terrence's Test, No Rainey's and Yes TTP Pes Anserine (minimal) Stability: NML: Terry, NML: Valgus 30 and NML: Varus 30 Patella Grind: No KNEE: no effusion. painful medial terrence, no click. Supplemental Info 04/27/2021 MRI right knee: Very small vertical oblique tear of the inferior articular surface of the posterior horn the medial meniscus arthrosis in the medial compartment with osteophytes and chondral thinning, very small oblique tear of the inferior articular surface of the posterior horn of the lateral meniscus arthrosis of the patellofemoral compartment intact ACL graft Coding Level of Care Code Off vis,est,level 3 Diagnoses Osteoarthritis of right knee M17.11 H/O anterior cruciate ligament surgery Z98.890 Mechanical pain of right knee M25.561 Medial meniscus tear S83.249A Lateral meniscus tear S83.289A Assessment and Plan Assessment and Plan (1) Osteoarthritis of right knee: Status: Acute (2) H/O anterior cruciate ligament surgery: Status: Acute (3) Mechanical pain of right knee: Status: Acute (4) Medial meniscus tear: Status: Acute (5) Lateral meniscus tear: Status: Acute Plan - Dr. Kvng Blcak, DO: Educated the patient about the anatomy of the knee and etiology of her pain. Spoke with her about the cartilage paulino. Explained her options- viscosupplementation injection, long acting steroid injections, knee arthroscopy vs a total knee arthroplasty. Spoke with her about the risks and benefits of each option. Spoke with her about a TKA procedure, recovery. Spoke with her about the importance of physical therapy to prevent stiffness. Patient will be using a walker following surgery and should check with her hand surgeon who will be doing an upcoming CMC arthroplasty left hand to find out when he would feel comfortable with her weightbearing through the hand because she will require a walker postoperatively of her knee replacement. Risks, benefits and alternatives of surgery reviewed including but not limited to bleeding, infection, nerve, artery and/or tissue damage, fracture, VTE, mechanical feel of the knee, continued pain, stiffness and expected post- operative course. Follow up when she would like to proceed with surgery or sooner if pain, swelling, numbness or associated symptoms, or concerns develop. All questions answered. Patient in agreement of plan. 05/16/21 1200<Electronically signed by Kvng Black DO>Date Kvng Black DO Cosigner Signature:Date (if applicable) CC: DESTINY Clarke ~I have re-examined the patient. There are no clinical changes since date of exam
--- NOTE | 2021-07-26 07:30 | KNEE_PTH ---
PATIENT: DANIEL WHITE LOC: [facility] [place] U#:[id number] AGE/SX: 60/F ROOM: RE07/26/[address]: Dr. Kvng Black DO : 1960 BED: DIS: 07/26/2021 SPEC #: [id number] RECD: 07/26/21 11:19 STATUS: ADILSON REBindu #: [id number] EDIE: 07/26/21 07:[address]: Kvng Black DEPT: SURGICAL PATHOLOGY RECD BY: Herminia Mar ENTERED: 07/26/21 11:35 SP TYPE: TOTAL KNEE OTHR DR: Maribel Clarke, SALES SECRETARY-C Tissues: Knee, NOS Procedures: Decalcification bone/plaque Surgery Specimen Level IV HEADER OPERATION: ERAS, total knee replacement robotic arm assist PRE-OP DIAGNOSIS: Osteoarthritis right knee; mechanical pain right knee TISSUE SUBMITTED: Right knee bone and soft tissue MICROSCOPIC DIAGNOSIS Bone and soft tissue, right knee, total knee replacement/resection: Pieces of bone with mild degenerative osteoarthritic changes. Fibroadipose tissue, fibroconnective tissue and reactive synovial tissue. ANABEL:shellie 07/29/2021 MICROSCOPIC DESCRIPTION Slides are reviewed. GROSS DESCRIPTION Received is one container designated bone and soft tissue right knee. The specimen consists of multiple fragments of ruiz-yellow bone measuring in aggregate 7 x 6.5 x 3 cm. Also in the specimen container are multiple fragments of yellow-white soft tissue measuring in aggregate 9 x 6 x 1.8 cm. The articular surface displays prominent osteophyte formation and extensive eburnation. Upper Inspector sections are submitted in three cassettes as follows: 1 - soft tissue, 2 & 3 - bone after decalcification. / AM:shellie 07/26/21 TC:5 [facility]: [id number], [id number]
[2021-07-26] MEDS: dexAMETHasone 10 MG/ML Vial IV (08:02)
[2021-07-26] MEDS: Lactated Ringers 1,000 ML 125 ML IV (09:15)
[2021-07-26] MEDS: Betamethasone/Betamethasone 30 MG/5 ML Vial (09:30)
[2021-07-26] MEDS: Bupivacaine Mpf 0.5% 30 ML VIAL (09:30)
[2021-07-26] MEDS: Epinephrine (1 mg/ml) 1 MG/ML VIAL (09:30)
--- NOTE | 2021-07-26 09:55 | PCM.OPRPT ---
Report of Operation Date of Procedure: 07/26/21 Description of Surgical Findings:: Preoperative diagnosis: Right knee DJD history of ACL reconstruction with ACL hardware Postoperative diagnosis: Same Procedure: Right total knee arthroplasty CT guided Robotic Assisted in removal of hardware tibia ACL screw Implant: Luca triathlon press fit, femoral component size 2, tibial baseplate size 2, asymmetric patella size 32, polyethylene X3 size 9 CS Anesthesia: General with adductor canal block Tourniquet time: 12 minutes at 300 mmHg Complications: None Condition: Stable to PACU Estimated blood loss: 200 cc Indication for procedure: This is a 60-year-old female with long standing degenerative joint disease of the knee who has failed conservative treatment and wished to proceed with elective total knee arthroplasty. She did have a history of ACL reconstruction with a metal cancellous screw many years ago. She understood the screw need to be removed in order to place the implants risk benefits and alternatives were reviewed including; risk of bleeding, infection, nerve artery and tissue damage, continued pain, postoperative stiffness, venous thromboembolism, need for postoperative rehabilitation, mechanical feel to the knee, and expected postoperative course. The operative CT and templating was performed with component sizing Procedure: The patient was met in the preoperative holding area. The operative extremity was identified by both patient and physician and was marked. Patient was met by anesthesia. An adductor canal block was placed by anesthesia postoperatively the patient was brought back to the operating room on a wheeled cart and transferred to the operating table in the supine position. Anesthesia was started. A well-padded tourniquet was placed on the operative extremity. The patient was prepped and draped in the usual sterile fashion. A timeout was called to ensure the proper patient procedure and extremity were being contemplated. An Esmarch was used to exsanguinate the extremity. The tourniquet was inflated. A 10 blade scalpel was used to make a midline incision down through the skin and subcutaneous tissue. The incision was carried down in a nest style type to incorporate her previous incision from her ACL reconstruction skin retractors placed. Bovie was used to perform meticulous hemostasis. full-thickness flaps were elevated medial and lateral along the joint capsule. And the ACL screw was identified was freed of soft tissue with a small wesley elevator and was removed with a hex screw with ease, there was some Ethibond stitches remaining that were removed with a rongeur once the screw was removed thorough irrigation of the tract was performed followed by an irrisept rinse, A deep blade scalpel was used to perform a medial parapatellar arthrotomy. The knee was brought to full extension. A Bovie was used to release the soft tissues off the most proximal aspect of the medial tibial plateau, a three-quarter inch curved osteotome was also used for this process. The infrapatellar fat pad was excised. The superior fat pad was excised partially anteriorolateraly and portion the anterioromedial pad was elevated from the femur. At this point our intra-articular femoral array was placed of a 45 degree angle proximal and posterior to the medial epicondyle. Our tibial array was placed greater than 1 hands breath below the incision at a 20 degree angle stab incisions were used for this case were attached and checked with the robotic software. Tourniquet was let down. At this point registration macario were taken throughout the knee as well as checkpoints placed in the femur and tibia once the knee was registered then tensioned the medial and lateral ligaments in extension and 90 degrees of flexion. We then used these numbers to adjust our components within parameters to balance the knee in both flexion and extension once this was done on our monitor we then proceeded with using the robotic arm to make our tibial plateau cut and anterior posterior and chamfer cuts and distal on the femur we then trialed and achieved the desired plan with a well-balanced knee. Lug holes were drilled in the femur the tibia preparation was completed with a fin punch and the patella was prepared by first using a caliper to ensure sufficient bone stock and a patellar reamer to remove the desired amount of bone locals were drilled for an asymmetric poly-. We then brought the knee through range of motion with excellent patellar tracking. We thoroughly irrigated the knee with a trial components were removed a posterior capsular injection with her standard cocktail was performed the aqua Mantis was also used to aid in hemostasis. Betadine rinse was allowed to sit and washed out components were press-fit into place. Aricept rinse was then used followed by several more rate liters of irrigation after it was allowed to sit. Joint capsule was closed with #1 Ethibond [id number] followed by Vicryl in the subcutaneous tissues staple in the skin arrays and checkpoints were removed prior to closure all counts were correct stab incisions were closed with a stable standard dressing in the form of Mepilex for the main incision Xeroform 4 x 4 and Tegaderm over pin site holes. Thigh-high MARY ALICE hose applied over top of dressing. Patient tolerated the procedure well and was directed to PACU in stable condition no intraoperative complications
--- NOTE | 2021-07-26 09:58 | EX.PCM.DISCH ---
Discharge Instructions Diet Discharge Diet: No restrictions Activity Weight Bearing Status: Weight bearing as tolerated Dressing / Incision Call your doctor if you observe: Fever of 101 or Higher, Shortness of breath and Chest pain Additional Dressing/Incision Instructions:: Ice and elevate one week while not ambulating. Ambulation is encouraged. Weightbearing as tolerated. Use assistive devise for stability. Encourage FULL knee extension and flexion 1 time EVERY time you get up and down and MULTIPLE times per day. No showering 72 hours after surgery. Begin showering postop day #3. Remove the dressing prior to shower and gently wash with warm water and antibacterial soap then pat dry and place abdominal pad (or plain gauze) and MARY ALICE hose over top. This is to be done daily. Do not submerge for 3 weeks. If not showering daily after the initial 72 hours then you must clean incision and change dressing daily. Do not allow animals near the incision area. Keep clean. Follow anticoagulation recommendations as prescribed. Do not take any NSAIDs while on blood thinner. Do not take any additional narcotic pain medication other than what was prescribed on your surgery day without discussing with physician. Narcotic medication can be addictive. Do not drink alcohol while taking narcotics. Start physical therapy. If you are not currently scheduled for physical therapy or you are unsure of appointment time please call office [facility] to arrange. Call Dr. Black with any concerns. Follow Up Care Please Follow Up With: Kvng Black DO When: 2 weeks Test Results: Test results from this visit will be discussed in further detail at your follow-up appointment, if applicable. Discharge Plan Admission Primary Reason for Your Visit: Right knee removal of hardware total knee arthroplasty Attending Provider: Kvng Black Primary Care Provider: Maribel Clarke NP Discharge Orders/Prescriptions Prescriptions: New acetaminophen 500 mg Tablet 1,000 mg PO Q6H Qty: 100 RF: 0 oxycodone 5 mg Tablet 5 - 10 mg PO Q4H PRN PRN (Reason: Pain Score 4-10) 7 Days Qty: 60 RF: 0 Eliquis 2.5 mg tablet 2.5 mg PO BID Qty: 42 RF: 0 Continued duloxetine 60 mg capsule,delayed release(DR/EC) 60 mg PO QHS Qty: 90 RF: 3 fenofibrate nanocrystallized 145 mg tablet 145 mg PO QHS Qty: 90 RF: 3 hydrochlorothiazide 12.5 mg capsule 12.5 mg PO DAILY Qty: 90 RF: 3 lisinopril 10 mg tablet 10 mg PO DAILY Qty: 90 RF: 3 levothyroxine 88 mcg tablet 88 mcg PO DAILY Qty: 90 RF: 3 atorvastatin 40 mg tablet 40 mg PO DAILY Qty: 90 RF: 3 Toviaz 8 mg tablet extended release 24 hr 8 mg PO DAILY Qty: 90 RF: 3 multivitamin with minerals 1 EACH tablet 1 tab PO DAILY RF: 0 Zyrtec 10 mg Capsule 10 mg PO DAILY PRN (Reason: allergies) RF: 0 aspirin 81 MG tablet 81 mg PO DAILY@0800 Qty: 30 RF: 1 Referrals / Follow Up: Maribel Clarke NP, PAPER [employer] MACHINE OPERATOR-C [Primary Care Provider] - Disposition Disposition (needs filled in before D/C Order can be placed): Home, Self Care
--- NOTE | 2021-07-26 10:30 | RAD_ITS ---
STUDY: XR Knee 1 or 2 Views 07/26/2021 4:02 PM REASON FOR EXAM: Female, 60 years old. Post op knee in PACU TECHNIQUE: XR Knee 1 or 2 Views COMPARISON: None. FINDINGS: There is no fracture or dislocation. There is anatomic alignment. Total knee arthroplasty. Soft tissue edema. Skin charley are seen along the anterior midline aspect of the knee. There is an air-fluid level seen in the suprapatellar region. Joint space is preserved. Subcutaneous air is noted. IMPRESSION: Successful total knee arthroplasty. Electronically Signed: Maurice Soto MD at 16:03 EDT , Service support , RAD/Knee 1 or 2 Views
== END 2021-07-26 15:17 | disposition home or self-care (01) ==
LOC: SDC 05:32 → AC 05:33
PROVIDERS: Anesthesiology; PCP Nurse Practitioner; Referring Provider Orthopaedic Surgery; Visit Provider Orthopaedic Surgery
PROC: 0SRC0JZ Replacement of Right Knee Joint with Synthetic Substitute, Open Approach (ICD-10-PCS; CPT 27447; principal; 2021-07-26 07:00)
DX: M17.11 Unilateral primary osteoarthritis, right knee (principal); S83.241A Other tear of medial meniscus, current injury, right knee, initial encounter; S83.281A Other tear of lateral meniscus, current injury, right knee, initial encounter; X58.XXXA Exposure to other specified factors, initial encounter; I10 Essential (primary) hypertension; D68.51 Activated protein C resistance; E78.5 Hyperlipidemia, unspecified; E03.9 Hypothyroidism, unspecified; M79.7 Fibromyalgia; Z79.82 Long term (current) use of aspirin; Z79.899 Other long term (current) drug therapy
CPT/HCPCS: 01402; 20680; 27447; 64447; S2900; 36415; 73560; 80048; 82962; 82985; 83735; 84443; 85025; 85610; 85730; 86850; 86900; 86901; 87081; 88305; 88311; 93005; 97162; C1776; J7120; J0702; J2405

== ENCOUNTER → 2021-09-05 09:12 | Outpatient (CLI) | payer OTHER, SELFPAY ==
--- NOTE | 2021-09-05 09:19 | RAD_ITS ---
STUDY: X-RAY - RIGHT KNEE REASON FOR EXAM: Follow-up right total knee arthroplasty, right knee stiffness. TECHNIQUE: 3 view(s) of the knee. COMPARISON: Radiographs 07/26/2021. FINDINGS: There is a right total knee arthroplasty without evidence of complication. There is a joint effusion. There is mild anterior soft tissue swelling. RAD/Knee 3 Views IMPRESSION: Uncomplicated right total knee arthroplasty. Joint effusion. Electronically Signed: Ford Greco MD at 14:43 EST Tel , Service support ,
== END ==
PROVIDERS: PCP Nurse Practitioner; Referring Provider Orthopaedic Surgery; Visit Provider Orthopaedic Surgery
DX: Z96.659 Presence of unspecified artificial knee joint (principal)
CPT/HCPCS: 73562

== ENCOUNTER 2021-10-18 14:23 | Outpatient (CLI) | payer OTHER, SELFPAY ==
[2021-10-18] MEDS: 0.9% Saline Lock 10 ML Syringe IV (14:34)
[2021-10-18 14:44] VITALS: BP 137/88; PULSE 107; RESP 16; TEMP 36.6; O2SAT 100; BMI 29.9
[2021-10-18 15:29] VITALS: BP 110/74; PULSE 115; RESP 16; TEMP 36.9; O2SAT 97
[2021-10-18 16:28] VITALS: BP 115/75; PULSE 97; RESP 16; TEMP 37; O2SAT 99
== END 2021-10-18 23:59 | disposition home or self-care (01) ==
LOC: MS3OUT 14:23 → MS3 14:24
PROVIDERS: PCP Nurse Practitioner; Referring Provider Nurse Practitioner Adult Health; Visit Provider Nurse Practitioner Adult Health
DX: U07.1 COVID-19 (principal)
CPT/HCPCS: J7050; M0243; A4216; Q0240

== ENCOUNTER 2021-12-13 15:30 | Outpatient (RCR) | payer OTHER, SELFPAY ==
--- NOTE | 2021-07-28 14:00 | HP.PTEVAL_ITS ---
Patient's Visit Information DANIEL WHITE is a 60 year old F referred to Physical Therapy by Dr. Kvng Black DO with a diagnosis of R TKA 07/26/21. Date of Evaluation: 07/28/21 Physical Therapist: Maurice Cardoso, PT, ATC - Visit Plan Frequency: 2-3x /Week Duration: 4-6 Weeks Plan: R knee PROM/mobs, stretching and strengthening, core stab ex's, balance and proprio, nustep, and HEP - Subjective DOS: 07/26/21. Pt reports her R knee has been sore for a chronic period of time. Pt notes she injuered her knee when she was young, then tore her ACL in 1984. Pt notes her pain progressively worsened until recently when she decided to have h er R TKA. Pt reports she is glad to have had the surgery at this time. Pt notes she is still in a lot of pain at this time, but her pain is prgressively getting better. Pt notes she only took tylenol today prior to surgery because her pain meds make her sleepy. Pt notes tingling and numbness today surrounding her incisions. Pt reports sleep difficulty at this time secondary to pain, noting she is able to sleep for 2-3 hours at a time. Pt has 3 steps to enter her nouse and she has to negotiate them one step at a time. Pt reports she works for [employer], which is mostly a sit down job. Pt is an avid walker and losves to go fishing, and notes her goal is to be able to return to that activity in 8 weeks when she goes to [place] at that time. 5/10 pain at rest, 10/10 at worst (trying to get out of bed) - Pain R TKA Pain Intensity (Out of 10): 5 Pain Intensity Range: 10 - Objective Tu sec. Observation: Incisions are still covered. Healing well at this time. No obvious signs of infection. Neuro: B LE sensation is WNL to light touch. ROM: L knee 0-130 degrees; L knee 0-18-85. MMT: R knee flex= 4.5, ext= 0; L knee flex= 15.8. ext= 22.5 - Balance/Special Test Scores Lower Extremity Functional Score: 11 - Goals Goal 1:: Decrease R knee pain x 50% to aid with sleep Goal Time Frame: 4-6 Weeks Goal 2:: Increase R knee ROM x 40 degrees to aid with restoring a more normalized gait pattern Goal Time Frame: 4-6 Weeks Goal 3:: Increase R knee strength x 1 grade to aid with stair negotiation Goal Time Frame: 4-6 Weeks Goal 4:: I with HEP Goal Time Frame: 4-6 Weeks - Rehabilitation Potential Physical Therapy Diagnosis: Pt has R knee pain, weakness, and limited ROM secondary to R TKA Rehabilitation Potential: Good - Anticipated Interventions Patient/Client Instruction: Educate patient on: Condition, Plan of Care For the Purpose of:: To improve self management Therapeutic Exercise to Include: Strength training, Endurance training, Balance training, Flexibilty training, Gait and locomotor training, Passive ROM, Active ROM, Dynamic Lumbar Stabilization For the Purpose of:: To decrease pain, To increase ROM, To improve muscle performance and motor function Cryotherapy (ice pack, ice massage): Yes For the Purpose of:: To decrease pain Thank you for the opportunity to evaluate your patient. For Medicare and Medicare HMO plans, please review the plan of care and approve it. It will need to be FAXED BACK to us at [phone] for Medicare purposes. For Medicare only, by signing this I certify the plan of care. Please let me know if there are questions or concerns regarding this plan of care. Physician Signature: Date:
--- NOTE | 2021-08-31 09:11 | HP.PTREVAL_ITS ---
Dr. Kvng Black, DO, It has been my pleasure to treat DANIEL WHITE over the last 9 visits for R TKA 07/26/21. Please see the progress note below for an update on the physical therapy plan of care! Subjective: Pt reports pain is mild this date Objective/Function: R knee pain: 2/10 currently, 4/10 at worst. R knee ROM: 0-5-120. R knee MMT: flex= 29, ext= 25 #F. Pt is progressing well toward Rx goals Plan Plan: R knee PROM/mobs, stretching and strengthening, core stab ex's, balance an d proprio, nustep, and HEP Balance/Gait/Functional tests - Balance/Special Test Scores Lower Extremity Functional Score: 46 Goals Goal 1:: Decrease R knee pain x 50% to aid with sleep Goal Time Frame: 4-6 Weeks Goal Progress: Progressing Goal 2:: Increase R knee ROM x 40 degrees to aid with restoring a more normalized gait pattern Goal Time Frame: 4-6 Weeks Goal Progress: Goal Met Goal 3:: Increase R knee strength x 1 grade to aid with stair negotiation Goal Time Frame: 4-6 Weeks Goal Progress: Progressing Goal 4:: I with HEP Goal Time Frame: 4-6 Weeks Goal Progress: Goal Met Anticipated Interventions Patient/Client Instruction: Educate patient on: Condition, Plan of Care For the Purpose of:: To improve self management Therapeutic Exercise to Include: Strength training, Endurance training, Balance training, Flexibilty training, Gait and locomotor training, Passive ROM, Active ROM, Dynamic Lumbar Stabilization For the Purpose of:: To decrease pain, To increase ROM, To improve muscle performance and motor function Cryotherapy (ice pack, ice massage): Yes For the Purpose of:: To decrease pain Please do not hesitate to contact me at [phone] by phone or if you have questions or concerns regarding this new plan of care! Sincerely, Maurice Cardoso, PT, ATC
--- NOTE | 2021-10-10 11:11 | HP.OTEVAL ---
Patient's Visit Information DANIEL WHITE is a 61 year old F, referred to Occupational Therapy by Dr. 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 Date of Evaluation: 10/10/21 Occupational Therapist: Lilian Dhillon - Subjective Pt reports she initially had pain in her thumb- tried therapy for conservative tx which didn't remove the pain- arthritis of CMC joint and trigger finger of D3; sx included trigger finger release, tendon transfer of CMC joint and cyst removal on ; Pt has been in thumb spica splint since surgery; pt has follow up visit on November 10; pt is allowed to move IP joint of thumb but not the CMC joint; Pt is completing AROM exercises of digits 3-4x/day; pt is taking splint off for wrist exercises; pt has slight opening at scar on D3; 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 R hand- full tight composite fist; - Edema PIP: L D1: 6.4 D2: 6.0 D3: 6.1 D4: 5.7 D5: 4.9 - Sensation Sensation Comments: Reports slight N/T in her thumb - Quick DASH-Disab of Arm,Shoulder& Hand Quick DASH Score: 56.8175 - Goals Goal:: Pt will increase dynamite cartridge crimper strength to >5# in order to begin completing ADLs/IADLs independently. Goal:: Pt will be able to make tight composite fist in order to complete ADLs/IADL tasks. Goal:: Pt will report improved pain to no more than 2/10 at worst in order to completed daily living tasks. Goal:: Pt will show improved edema in all L digits comparable to R hand in order to complete daily living tasks. Goal:: Pt will demo good knowledge of scar management by 2nd session to assist with healing of incisions. 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 therapy services 1-2x/week for 10 weeks to regain function. Rehabilitation Potential: Good - Anticipated Interventions A/AAROM/PROM, Strengthening, Edema Control, Scar Care, Massage, Triggerpoint Release, Modalities, Orthoses, Joint Protection/Energy Conservation, Fine Motor Coord/Morteza, Home Program - Visit Plan Frequency: 1-2x /Week Duration: 3 Months General Plan: Pt to return 1-2x/week for 10-12 weeks for mobility, strengthening, edema and pain management to support and promote healing after sx and maximize function to return to prior level of function. TEXT: Thank you for the opportunity to evaluate your patient. For Medicare and Medicare HMO plans, please review the plan of care and approve it. It will need to be FAXED BACK to us at [phone] for Medicare purposes. Please let me know if there are questions or concerns regarding this plan of care. Physician Signature: Date:
--- NOTE | 2021-10-10 16:35 | HP.PTREVAL ---
Dr. Kvng Black, DO, It has been my pleasure to treat DANIEL WHITE over the last 15 visits for R TKA 07/26/21. Please see the progress note below for an update on the physical therapy plan of care! Subjective: My R knee pain is 2/10. I still have difficulty negotiating stairs today secondary to stiffness and weakness Objective/Function: R knee pain ranges from 2-4/10. R knee MMT: flex= 25.8, ext= 34.5 #F. R knee ROM: 0-5-120. Pt is progressing well toward Rx goals but would benefit from further strength and ROM ex's Plan Plan: Cont to progress ex's Balance/Gait/Functional tests - Balance/Special Test Scores Lower Extremity Functional Score: 55 Goals Goal 1:: Decrease R knee pain x 50% to aid with sleep Goal Time Frame: 4-6 Weeks Goal Progress: Progressing Goal 2:: Increase R knee ROM x 40 degrees to aid with restoring a more normalized gait pattern Goal Time Frame: 4-6 Weeks Goal Progress: Goal Met Goal 3:: Increase R knee strength x 1 grade to aid with stair negotiation Goal Time Frame: 4-6 Weeks Goal Progress: Progressing Goal 4:: I with HEP Goal Time Frame: 4-6 Weeks Goal Progress: Goal Met Anticipated Interventions Patient/Client Instruction: Educate patient on: Condition, Plan of Care For the Purpose of:: To improve self management Therapeutic Exercise to Include: Strength training, Endurance training, Balance training, Flexibilty training, Gait and locomotor training, Passive ROM, Active ROM, Dynamic Lumbar Stabilization For the Purpose of:: To decrease pain, To increase ROM, To improve muscle performance and motor function Cryotherapy (ice pack, ice massage): Yes For the Purpose of:: To decrease pain Please do not hesitate to contact me at [phone] by phone or if you have questions or concerns regarding this new plan of care! Sincerely, Maurice Cardoso, PT, ATC
--- NOTE | 2021-11-01 11:02 | HP.PTDCSUM_ITS ---
It has been my pleasure to treat DANIEL WHITE referred by Dr. Kvng Black DO, with the diagnosis of R TKA 07/26/21 for a total of 17 visit(s). Discharge Date: Please see the following information for a summary of their discharge status. Subjective: I feel really good right now. R TKA Pain Intensity (Out of 10): 1 % Improvement: 80 Objective/Function: R knee pain 0/10. R knee MMT: flex= 21, ext= 25.3. R knee ROM: 0-120 degrees. Tu.3. Girth at joint line: 33 cm Goal 1:: Decrease R knee pain x 50% to aid with sleep Goal Progress: Goal Met Goal 2:: Increase R knee ROM x 40 degrees to aid with restoring a more normalized gait pattern Goal Progress: Goal Met Goal 3:: Increase R knee strength x 1 grade to aid with stair negotiation Goal Progress: Goal Met Goal 4:: I with HEP Goal Progress: Goal Met Plan: Discharge to [facility] If there are questions or concerns regarding this patient's physical therapy, please feel free to call me at [phone]. Thank you for the referral of this patient. Sincerely, Maurice Cardoso, PT, ATC Balance/Gait/Functional tests - Balance/Special Test Scores Lower Extremity Functional Score: 55
--- NOTE | 2021-11-08 16:01 | OTREVAL_ITS ---
Dr. 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 Please see the progress note below for an update on the occupational therapy plan of care! Subjective: pt arrives 6 weeks and one day s/p from cmc arthroplasty- pt states she did order comfort cool thumb brace and will get his thurs. pt report min. pain- wearing orthosis at night and when at home out of orthosis and imitating typing for short periods of time at work. pt does use ice if her hand is bothering her. typical pain no greater than 2-3 /10 this is not often. pt is happy with her results but would like to know when she will be able to golf. Objective/Function: left MF MCP 70* flex. left MP PIP 95* flex. thumb CMC 10. thumb MP 40. IP 50. opposition to side of LF DIP crease. wrist 60/50. pt making gains with her ROM -. initiated roofer applicator strength and wrist- will initiate pinch at 8 weeks unless otherwise instructed- Plan Frequency: 1-2x /Week Duration: 4 Weeks Visits in this POC: 24 Plan: will continue with protocol-. 6 weeks d/c orthosis and pt to use comfort cool - pt to cont. with her ROM and light roofer applicator strengthening until 8 weeks unless otherwise specified by Dr- Pt advised to ask about golfing. Goals - Goals Patient Goals: Regain Mobility, Regain Strength, Decrease Pain, Return to Work, Decrease Swelling/Stiffness, Improve Fine Motor Skills, Use Hand/Wrist/Arm Normally Again, Increase ROM, Be More Independent in ADLS, Resume Former House hold Responsibilities (Cooking,Cleaning,Yard, etc.), Resume Hobbies Goal:: Pt will increase roofer applicator strength to >5# in order to begin completing ADLs/IADLs independently. Goal:: Pt will be able to make tight composite fist in order to complete ADLs/IADL tasks. Goal:: Pt will report improved pain to no more than 2/10 at worst in order to completed daily living tasks. Goal:: Pt will show improved edema in all L digits comparable to R hand in order to complete daily living tasks. Goal:: Pt will demo good knowledge of scar management by 2nd session to assist with healing of incisions. Goal:: Pt will demo improved Hand function by decreasing Quick Dash score from 36 to <23 Anticipated Interventions Anticipated Interventions: A/AAROM/PROM, Strengthening, Edema Control, Scar Care, Massage, Triggerpoint Release, Modalities, Orthoses, Joint Protection/Energy Conservation, Fine Motor Coord/Morteza, Home Program Please do not hesitate to contact me at [phone] by phone or if you have questions or concerns regarding this new plan of care! Sincerely, Jackie Lau, OTR/L, CHT
--- NOTE | 2021-11-08 16:08 | OTREVAL_ITS ---
Dr. 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 Please see the progress note below for an update on the occupational therapy plan of care! Subjective: pt arrives 6 weeks and one day s/p from cmc arthroplasty- pt states she did order comfort cool thumb brace and will get his thurs. pt report min. pain- wearing orthosis at night and when at home out of orthosis and imitating typing for short periods of time at work. pt does use ice if her hand is bothering her. typical pain no greater than 2-3 /10 this is not often. pt is happy with her results but would like to know when she will be able to golf. Objective/Function: left MF MCP 70* flex. left MP PIP 95* flex. thumb CMC 10. thumb MP 40. IP 50. opposition to side of LF DIP crease. wrist 60/50. pt making gains with her ROM -. initiated printed circuit boards contact printer strength and wrist- will initiate pinch at 8 weeks unless otherwise instructed- Plan Frequency: 1-2x /Week Duration: 4 Weeks Visits in this POC: 24 Plan: will continue with protocol-. 6 weeks d/c orthosis and pt to use comfort cool - pt to cont. with her ROM and light printed circuit boards contact printer strengthening until 8 weeks unless otherwise specified by Dr- Pt advised to ask about golfing. Goals - Goals Patient Goals: Regain Mobility, Regain Strength, Decrease Pain, Return to Work, Decrease Swelling/Stiffness, Improve Fine Motor Skills, Use Hand/Wrist/Arm Normally Again, Increase ROM, Be More Independent in ADLS, Resume Former House hold Responsibilities (Cooking,Cleaning,Yard, etc.), Resume Hobbies Goal:: Pt will increase printed circuit boards contact printer strength to >5# in order to begin completing ADLs/IADLs independently. Goal:: Pt will be able to make tight composite fist in order to complete ADLs/IADL tasks. Goal:: Pt will report improved pain to no more than 2/10 at worst in order to completed daily living tasks. Goal:: Pt will show improved edema in all L digits comparable to R hand in order to complete daily living tasks. Goal:: Pt will demo good knowledge of scar management by 2nd session to assist with healing of incisions. Goal:: Pt will demo improved Hand function by decreasing Quick Dash score from 36 to <23 Anticipated Interventions Anticipated Interventions: A/AAROM/PROM, Strengthening, Edema Control, Scar Care, Massage, Triggerpoint Release, Modalities, Orthoses, Joint Protection/Energy Conservation, Fine Motor Coord/Morteza, Home Program Please do not hesitate to contact me at [phone] by phone or if you have questions or concerns regarding this new plan of care! Sincerely, Jackie Lau, OTR/L, CHT
--- NOTE | 2021-11-08 16:18 | OTREVAL_ITS ---
Dr. 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 Please see the progress note below for an update on the occupational therapy plan of care! Subjective: pt arrives 6 weeks and one day s/p from [facility] arthroplasty- pt states she did order comfort cool thumb brace and will get his thurs. pt report min. pain- wearing orthosis at night and when at home out of orthosis and imitating typing for short periods of time at work. pt does use ice if her hand is bothering her. typical pain no greater than 2-3 /10 this is not often. pt is happy with her results but would like to know when she will be able to golf. Objective/Function: left MF MCP 70* flex. left MP PIP 95* flex. thumb CMC 10. thumb MP 40. IP 50. opposition to side of LF DIP crease. wrist 60/50. pt making gains with her ROM -. initiated banking supervisor strength and wrist- will initiate pinch at 8 weeks unless otherwise instructed- Plan Frequency: 1-2x /Week Duration: 4 Weeks Visits in this POC: 24 Plan: will continue with protocol-. 6 weeks d/c orthosis and pt to use comfort cool - pt to cont. with her ROM and light banking supervisor strengthening until 8 weeks unless otherwise specified by Dr- Pt advised to ask about golfing. Goals - Goals Patient Goals: Regain Mobility, Regain Strength, Decrease Pain, Return to Work, Decrease Swelling/Stiffness, Improve Fine Motor Skills, Use Hand/Wrist/Arm Normally Again, Increase ROM, Be More Independent in ADLS, Resume Former House hold Responsibilities (Cooking,Cleaning,Yard, etc.), Resume Hobbies Goal:: Pt will increase banking supervisor strength to >5# in order to begin completing ADLs/IADLs independently. Goal:: Pt will be able to make tight composite fist in order to complete ADLs/IADL tasks. Goal:: Pt will report improved pain to no more than 2/10 at worst in order to completed daily living tasks. Goal:: Pt will show improved edema in all L digits comparable to R hand in order to complete daily living tasks. Goal:: Pt will demo good knowledge of scar management by 2nd session to assist with healing of incisions. Goal:: Pt will demo improved Hand function by decreasing Quick Dash score from 36 to <23 Anticipated Interventions Anticipated Interventions: A/AAROM/PROM, Strengthening, Edema Control, Scar Care, Massage, Triggerpoint Release, Modalities, Orthoses, Joint Protection/Energy Conservation, Fine Motor Coord/Morteza, Home Program Please do not hesitate to contact me at [phone] by phone or if you have questions or concerns regarding this new plan of care! Sincerely, Jackie Lau, OTR/L, CHT
--- NOTE | 2021-11-08 16:19 | OTREVAL_ITS ---
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 Please see the progress note below for an update on the occupational therapy plan of care! Subjective: pt arrives 6 weeks and one day s/p from [facility]c arthroplasty- pt states she did order comfort cool thumb brace and will get his thurs. pt report min. pain- wearing orthosis at night and when at home out of orthosis and imitating typing for short periods of time at work. pt does use ice if her hand is bothering her. typical pain no greater than 2-3 /10 this is not often. pt is happy with her results but would like to know when she will be able to golf. Objective/Function: left MF MCP 70* flex. left MP PIP 95* flex. thumb CMC 10. thumb MP 40. IP 50. opposition to side of LF DIP crease. wrist 60/50. pt making gains with her ROM -. initiated pest control supervisor strength and wrist- will initiate pinch at 8 weeks unless otherwise instructed- Plan Frequency: 1-2x /Week Duration: 4 Weeks Visits in this POC: 24 Plan: will continue with protocol-. 6 weeks d/c orthosis and pt to use comfort cool - pt to cont. with her ROM and light pest control supervisor strengthening until 8 weeks unless otherwise specified by Dr- Pt advised to ask about golfing. Goals - Goals Patient Goals: Regain Mobility, Regain Strength, Decrease Pain, Return to Work, Decrease Swelling/Stiffness, Improve Fine Motor Skills, Use Hand/Wrist/Arm Normally Again, Increase ROM, Be More Independent in ADLS, Resume Former Household Responsibilities (Cooking,Cleaning,Yard, etc.), Resume Hobbies Goal:: Pt will increase pest control supervisor strength to >5# in order to begin completing ADLs/IADLs independently. Goal:: Pt will be able to make tight composite fist in order to complete ADLs/IADL tasks. Goal:: Pt will report improved pain to no more than 2/10 at worst in order to completed daily living tasks. Goal:: Pt will show improved edema in all L digits comparable to R hand in order to complete daily living tasks. Goal:: Pt will demo good knowledge of scar management by 2nd session to assist with healing of incisions. Goal:: Pt will demo improved Hand function by decreasing Quick Dash score from 36 to <23 Anticipated Interventions Anticipated Interventions: A/AAROM/PROM, Strengthening, Edema Control, Scar Care, Massage, Triggerpoint Release, Modalities, Orthoses, Joint Protection/Energy Conservation, Fine Motor Coord/Morteza, Home Program Please do not hesitate to contact me at [phone] by phone or if you have questions or concerns regarding this new plan of care! Sincerely, Jackie Lau, OTR/L, CHT
--- NOTE | 2021-12-13 15:57 | HP.OTREVAL ---
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 Please see the progress note below for an update on the occupational therapy plan of care! Subjective: pt arrives to OT at 11 weeks s/p from left CMC arthroplasty- pt states she is IND with ADLs and IADLS. pt states picking up her laptop she will feel a strain- Objective/Function: left MF MCP 70* flex. left MP PIP 95* flex. trigger finger has recovered fully - no concerns. thumb CMC 10. thumb MP 45. IP 60. opposition to side of LF DIP crease. wrist 60/50. pt has met OT goals at this time by demo reaching functional ROM. left data base design analyst strength 35# right is 36#. left lateral pinch strength 4# right 12#. left tripod pinch strength 4# right 10#. pt is making gains with her strength. pt has been instructed in HEP to continue to improve her pinch strength. pt demo understanding Plan Visits in this POC: 24 Plan: pt to return to for possible d/c from OT services Goals - Goals Patient Goals: Regain Mobility, Regain Strength, Decrease Pain, Return to Work, Decrease Swelling/Stiffness, Improve Fine Motor Skills, Use Hand/Wrist/Arm Normally Again, Increase ROM, Be More Independent in ADLS, Resume Former Household Responsibilities (Cooking,Cleaning,Yard, etc.), Resume Hobbies Goal:: Pt will increase data base design analyst strength to >5# in order to begin completing ADLs/IADLs independently. Goal:: Pt will be able to make tight composite fist in order to complete ADLs/IADL tasks. Goal:: Pt will report improved pain to no more than 2/10 at worst in order to completed daily living tasks. Goal:: Pt will show improved edema in all L digits comparable to R hand in order to complete daily living tasks. Goal:: Pt will demo good knowledge of scar management by 2nd session to assist with healing of incisions. Goal:: Pt will demo improved Hand function by decreasing Quick Dash score from 36 to <23 Anticipated Interventions Anticipated Interventions: A/AAROM/PROM, Strengthening, Edema Control, Scar Care, Massage, Triggerpoint Release, Modalities, Orthoses, Joint Protection/Energy Conservation, Fine Motor Coord/Morteza, Home Program Please do not hesitate to contact me at [phone] by phone or if you have questions or concerns regarding this new plan of care! Sincerely, Jackie Lau OTR/L, CHT
== END 2021-12-13 19:00 | disposition home or self-care (01) ==
LOC: OT 15:30
PROVIDERS: PCP Nurse Practitioner
DX: Z47.1 Aftercare following joint replacement surgery (principal); Z96.651 Presence of right artificial knee joint
CPT/HCPCS: 97110; 97140; 97161; 97164; 97165; 97530

== ENCOUNTER 2022-01-09 21:29 | Outpatient (CLI) | payer OTHER, SELFPAY ==
[2022-01-09 21:54] LABS: Absolute Lymphocyte Count 3.04 X10^3/uL (0.83-4.51); Absolute Neutrophil Count 3.6 X10^3/uL (2.0-7.7); Basophil# 0.06 X10^3/uL; Basophil% 0.8 % (0-1); Eosinophil# 0.37 X10^3/uL; Hematocrit 40.9 % (37-47); Hemoglobin 13.7 g/dL (12.0-15.0); Lymphocyte # 3.04 X10^3/ul (0.83-4.51); Lymphocyte % 40.9 % (19-41); Mean Corp Hgb Conc 33.5 g/dL (32-36); Mean Corpuscular Hgb 28.4 pg (27.0-32.0); Mean Corpuscular Volume 84.9 fL (81-99); Mean Platelet Vol. 9.6 fl (6.2-12.0); Monocyte# 0.31 X10^3/uL; Monocyte% 4.2 % (0-10); NRBC Flagged by Analyzer 0 % (0-5); Neutrophil # 3.64 X10^3/uL (2.7-7.7); Neutrophil % 48.8 % (47-70); Platelet Count 476 K/mm3 (150-450); RBC Distribution Width CV 14.1 % (11.6-14.6); RBC Distribution Width SD 43.6 fl (35.1-43.9); Red Blood Count 4.82 M/mm3 (4.2-5.4); White Blood Count 7.4 K/mm3 (4.4-11.0)
[2022-01-09 22:13] LABS: ALB/GLOB Ratio 1.1 RATIO (0.9-2.4); AST(SGOT) 34 U/L (15-37); Alanine Aminotransfer ALT/SGPT 39 U/L (13-56); Albumin, Serum 4.1 g/dL (3.2-5.0); Alkaline Phosphatase 62 U/L (45-117); Anion Gap 8 (5-15); BUN 14 mg/dL (7-18); BUN/Creat Ratio 22.3 RATIO (10-20); CRP, High Sensitivity Cardiac 1.53 mg/L; Calcium,Total 8.5 mg/dL (8.5-10.1); Chloride 105 mmol/L (98-107); Cholesterol 188 mg/dL (200); Creatinine, Serum 0.63 mg/dL (0.55-1.02); EST Glomerular Filtration Rate 103 mL/min (>60); Est Glom Filt Rate - Afr Amer 125 mL/min (>60); Globulin 3.8 g/dL (2.2-4.2); Glucose 127 mg/dL (74-106); High Density Lipoprotein 44 mg/dL; Potassium 3.2 mmol/L (3.5-5.1); Protein, Total 7.9 g/dL (6.4-8.2); Sodium Level 138 mmol/L (136-145); Thyroid Stim Hormone (TSH) 0.86 uIU/mL (0.358-3.74); Triglycerides 261 mg/dL; Very Low Density Lipoprotein 52 mg/dL (5-40)
== END 2022-01-09 23:59 | disposition home or self-care (01) ==
PROVIDERS: PCP Nurse Practitioner; Referring Provider Nurse Practitioner; Visit Provider Nurse Practitioner
DX: I10 Essential (primary) hypertension (principal); I25.119 Atherosclerotic heart disease of native coronary artery with unspecified angina pectoris; E78.5 Hyperlipidemia, unspecified; E03.9 Hypothyroidism, unspecified; R06.02 Shortness of breath
CPT/HCPCS: 80053; 80061; 84443; 85025; 86141

== ENCOUNTER 2022-01-11 10:51 | Outpatient (CLI) | payer OTHER, SELFPAY ==
[2022-01-11 12:45] LABS: CRP, High Sensitivity Cardiac 1.54 mg/L
== END 2022-01-11 23:59 | disposition home or self-care (01) ==
LOC: LAB 10:52
PROVIDERS: PCP Nurse Practitioner; Visit Provider Internal Medicine Cardiovascular Disease
DX: U07.1 COVID-19 (principal); R00.0 Tachycardia, unspecified
CPT/HCPCS: 36415; 86141

== ENCOUNTER → 2022-02-13 | Outpatient (CLI) | payer OTHER, SELFPAY ==
--- NOTE | 2022-02-13 06:02 | ECHOCS_ITS ---
Reason For Study: Chest Pain Procedure This was a 2D Doppler, Color Flow transthoracic echocardiogram. The study was technically difficult. Contrast injection was performed. Exam performed in department. Left Ventricle Normal LV size. Left ventricular systolic function is normal. The estimated ejection fraction is 60 %. Stage 1 diastolic dysfunction. No regional wall motion abnormalities noted. Right Ventricle Normal RV size. Normal systolic function. Atria Normal left atrium. Normal right atrium. Mitral Valve Normal mitral valve. Tricuspid Valve Normal tricuspid valve. Aortic Valve Trisinus/trileaflet aortic valve. Pulmonic Valve Normal pulmonic valve. Great Vessels Normal aortic root. The pulmonary artery is normal size. Normal inferior vena cava. Pericardium/Pleural No pericardial effusion. Medication 22 gauge I.V. with prn adaptor inserted into left arm. Diluted definity 2ml given slow IV push to enhance endocardial definition. MMode/2D Measurements & Calculations LVIDd: 3.8 cm IVSd: 0.97 cm LA dimension: 2.8 cm LVIDs: 3.0 cm LVPWd: 0.96 cm FS: 22.4 % LAV(MOD-sp4): 16.0 ml LA A4 area: 9.2 cm2 RA A4 area: 8.5 cm2 Time Measurements MV dec time: 0.20 sec Doppler Measurements & Calculations MV E max da: 68.0 cm/sec Lat Peak E' Da: 6.8 cm/sec Med Peak E' Da: 6.6 cm/sec MV A max da: 109.2 cm/sec E/E' lat: 9.9 E/E' med: 10.3 MV E/A: 0.62 MV V2 max: 108.7 cm/sec MV P1/2t max da: 73.1 cm/sec Ao V2 max: 103.4 cm/sec MV max P.7 mmHg MV P1/2t: 79.3 msec Ao max P.3 mmHg MV V2 mean: 63.0 cm/sec MV dec slope: 270.0 cm/sec2 MV mean P.8 mmHg MV V2 VTI: 18.5 cm MVA(P1/2t): 2.8 cm2 LV V1 max: 88.5 cm/sec PA V2 max: 89.6 cm/sec LV V1 max P.1 mmHg ECHO/Echo Complete W/ Contrast Interpretation Summary Normal LV size. Left ventricular systolic function is normal. The estimated ejection fraction is 60 %. Stage 1 diastolic dysfunction. Contrast injection was performed. Ordering Physician: Dorian Florentino Referring Physician: Maribel Meek Performed By: Nima Carpio RCS
--- NOTE | 2022-02-13 11:15 | STRESSREP ---
Stress Test Report Exercise stress myocardial perfusion stress test. 61-year-old lady with a history of chest pain. Stress protocol: Resting EKG demonstrates normal sinus rhythm with a rate of 85 bpm normal intervals are noted resting blood pressure is 118/76 mmHg. The patient exercised according to regular Jermaine protocol for total duration of 6 minutes completing stage II of the Jermaine protocol. The maximum heart rate attained was 181 bpm which was 113% of max impact at heart rate the maximum workload was 7 metabolic equivalents. At rest there were no ST or T wave changes noted to suggest ischemia and at peak exercise upsloping ST changes were noted which did not meet the criteria for ischemia. Patient had slight left shoulder discomfort. No obvious clinical angina was noted. The peak blood pressure was 168/86 mmHg. Myocardial perfusion protocol. 11.3 mCi of technetium 99m sestamibi was injected at rest. The patient exercised according to regular Jermaine protocol for 6 minutes and at peak exercise 33.7 mCi of technetium 99m sestamibi was injected stress images were obtained stress and rest images were reconstructed and compared in the short axis vertical long and horizontal long axis. Gated images were also obtained. Perfusion SPECT analysis: Review of the stress images demonstrate normal uptake of tracer noted in all areas of the myocardium. The resting images similarly demonstrate normal uptake of tracer noted in all areas of the myocardium. No obvious reversibility is noted to suggest ischemia and no previous infarct is noted. Gated SPECT analysis: The gated ejection fraction is 81%. Conclusion: Normal exercise myocardial perfusion stress test with no evidence of ischemia at a moderate workload Preserved ejection fraction.
== END | disposition home or self-care (01) ==
LOC: CVS 06:00
PROVIDERS: PCP Nurse Practitioner; Referring Provider Internal Medicine Cardiovascular Disease; Visit Provider Internal Medicine Cardiovascular Disease
DX: R00.0 Tachycardia, unspecified (principal); R07.9 Chest pain, unspecified
CPT/HCPCS: 78452; 93017; 93306; A9500; Q9957; A4216; C8929

== ENCOUNTER → 2022-07-17 | Outpatient (CLI) | payer OTHER, SELFPAY ==
[2022-07-17 22:34] LABS: Thyroid Stim Hormone (TSH) 2.66 uIU/mL (0.358-3.74)
== END | disposition home or self-care (01) ==
PROVIDERS: PCP Nurse Practitioner; Visit Provider Nurse Practitioner
DX: E03.9 Hypothyroidism, unspecified (principal)
CPT/HCPCS: 84443

== ENCOUNTER → 2022-08-24 | Outpatient (CLI) | payer OTHER, SELFPAY ==
--- NOTE | 2022-08-24 14:02 | BI_ITS ---
MAMMOGRAPHY - BILATERAL SCREENING REASON FOR EXAM: Female, 61 years old. Routine annual screening examination. PERTINENT HISTORY: Sister with breast cancer. TECHNIQUE: Digital bilateral breast eliazar (3D mammographic acquisition) in the CC and MLO projections. 2-D mediolateral oblique (MLO) and craniocaudad (CC) views of both breasts were obtained. CAD: Full Field Digital Mammography with Computer Added Detection was performed. COMPARISON: Comparison is made with prior examination 07/23/2018 and 04/12/2017. FINDINGS: Breast Composition: The breasts are heterogeneously dense, which may obscure small masses. There are no dominant masses or suspicious calcifications. Stable benign appearing bilateral axillary nodes. No other significant abnormalities are identified. There has been no significant change since the prior study. BI/SCRN MAMM (CAD)W/ELIAZAR BILAT IMPRESSION: Stable bilateral screening mammogram. Yearly follow-up mammogram recommended. (A) ASSESSMENT CATEGORY: BIRADS Category 2: Benign. A letter regarding these results will be sent to the patient by the facility within 30 days. Approximately 10% of breast cancers are not detected by mammography. A normal mammogram should not delay biopsy of a clinically suspicious abnormality. [id number] Electronically Signed: Lauri Coulter MD at 14:45 EST ,
== END | disposition home or self-care (01) ==
PROVIDERS: PCP Nurse Practitioner; Visit Provider Nurse Practitioner
DX: Z12.31 Encounter for screening mammogram for malignant neoplasm of breast (principal); Z80.3 Family history of malignant neoplasm of breast
CPT/HCPCS: 77063; 77067

== ENCOUNTER → 2023-01-11 | Outpatient (CLI) | payer OTHER, SELFPAY ==
[2023-01-11 22:09] LABS: ALB/GLOB Ratio 1.1 RATIO (0.9-2.4); AST(SGOT) 45 U/L (15-37); Alanine Aminotransfer ALT/SGPT 53 U/L (13-56); Albumin, Serum 3.9 g/dL (3.2-5.0); Alkaline Phosphatase 99 U/L (45-117); Anion Gap 7 (5-15); BUN 11 mg/dL (7-18); BUN/Creat Ratio 14.9 RATIO (10-20); Calcium,Total 9.3 mg/dL (8.5-10.1); Chloride 106 mmol/L (98-107); Cholesterol 197 mg/dL (200); Creatinine, Serum 0.74 mg/dL (0.55-1.02); EST Glomerular Filtration Rate 85 mL/min (>60); Est Glom Filt Rate - Afr Amer 103 mL/min (>60); Globulin 3.5 g/dL (2.2-4.2); Glucose 107 mg/dL (74-106); High Density Lipoprotein 45 mg/dL; Potassium 3.7 mmol/L (3.5-5.1); Protein, Total 7.4 g/dL (6.4-8.2); Sodium Level 139 mmol/L (136-145); Thyroid Stim Hormone (TSH) 3.75 uIU/mL (0.358-3.74); Triglycerides 333 mg/dL; Very Low Density Lipoprotein 67 mg/dL (5-40)
[2023-01-12 22:23] LABS: Lipase 179 U/L (73-393)
== END | disposition home or self-care (01) ==
PROVIDERS: PCP Nurse Practitioner; Visit Provider Nurse Practitioner
DX: R10.11 Right upper quadrant pain (principal); I10 Essential (primary) hypertension; E78.5 Hyperlipidemia, unspecified; E03.9 Hypothyroidism, unspecified
CPT/HCPCS: 80053; 80061; 83690; 84443

== ENCOUNTER → 2023-01-24 | Outpatient (CLI) | payer OTHER, SELFPAY ==
--- NOTE | 2023-01-24 10:54 | US_ITS ---
STUDY: ABDOMINAL ULTRASOUND - RIGHT UPPER QUADRANT REASON FOR VISIT: Female, 62 years old right upper quadrant pain, nausea TECHNIQUE: Ultrasound evaluation of the right upper quadrant was performed with real-time and static wyatt-scale imaging. TECHNICAL QUALITY: Adequate. COMPARISON: None. FINDINGS: Liver: The liver measures 15.2 cm. There is increased echogenicity consistent with fatty infiltration. The bile ducts are within normal limits. There is hepatic color flow. The direction of portal flow is hepatopetal. There is no demonstrated mass lesion. Gallbladder: The patient is status post cholecystectomy. Common Bile Duct (C.B.D.): The common bile duct measures 4 mm. Pancreas: Visualized pancreas is sonographically normal Right Kidney: Normal size of the right kidney. The right kidney measures 10.4 x 5.1 x 4.9 cm. Normal renal cortex. The right cortex measures 1.4 cm. There is no demonstrated renal mass or cyst. There is no right hydronephrosis. US/Liver IMPRESSION: Fatty liver, no discrete lesion Electronically Signed: Jb Luu MD at 11:46 EDT ,
== END | disposition home or self-care (01) ==
LOC: US 10:50
PROVIDERS: PCP Nurse Practitioner; Referring Provider Nurse Practitioner; Visit Provider Nurse Practitioner
DX: K76.0 Fatty (change of) liver, not elsewhere classified (principal); R10.11 Right upper quadrant pain; Z83.79 Family history of other diseases of the digestive system
CPT/HCPCS: 76705

== ENCOUNTER → 2023-07-10 | Outpatient (CLI) | payer OTHER, SELFPAY ==
[2023-07-10 23:05] LABS: Thyroid Stim Hormone (TSH) 0.33 uIU/mL (0.358-3.74)
[2023-07-11 07:54] LABS: PTHIN 36.9 pg/mL (18.4-80.1)
== END | disposition home or self-care (01) ==
PROVIDERS: PCP Nurse Practitioner; Visit Provider Nurse Practitioner
DX: E03.9 Hypothyroidism, unspecified (principal); L65.9 Nonscarring hair loss, unspecified; R53.83 Other fatigue
CPT/HCPCS: 83036; 83970; 84443

== ENCOUNTER 2023-08-20 12:38 | Day surgery (SDC) | payer OTHER, SELFPAY ==
[2023-08-20] VITALS (7 sets, daily range): BP systolic 99–127; BP diastolic 66–90; PULSE 76–99; RESP 16; TEMP 36.1–36.4; O2SAT 95–98; BMI 30.9
[2023-08-20] MEDS: Lactated Ringers 1,000 ML 15 ML IV (12:56)
--- NOTE | 2023-08-20 13:17 | HP.PCM_ITS ---
HPI - General HPI Narrative DANIEL WHITE, is a 62 F who presents for screening colonoscopy. Her last colonoscopy was over 10 years ago. She reports no abdominal pain or blood in the stool. She has no family history of colon cancer. PENDING SALE TO [facility] Medical History (Updated 08/16/23 @ 15:57 by Dorcas Purdy) Alcohol use Asthma Back pain Bilateral carotid bruits BiPAP (biphasic positive airway pressure) dependence Cardiology follow-up encounter COVID-19 (10/18/21) Depression Essential hypertension Factor 5 Leiden mutation, heterozygous Fatigue Fatty liver Fibromyalgia GERD (gastroesophageal reflux disease) Goiter diffuse, adenomatous Hay fever Heartburn High cholesterol History of echocardiogram History of irregular heartbeat History of pain when walking History of stress test Hydronephrosis Injury of head and neck Insomnia disorder Knee pain Left ureteral calculus Migraine headache Non-smoker PONV (postoperative nausea and vomiting) Seasonal affective disorder Seasonal allergies Sleep apnea Stress incontinence in female Thyroid disease Wears glasses Home Medications cetirizine 10 mg capsule (Zyrtec) 10 mg PO DAILY PRN allergies 07/12/21 [History Last Taken Unknown] levothyroxine 100 mcg tablet 88 mcg PO QDAY 05/23/23 [History Last Taken 08/20/23] albuterol sulfate 90 mcg/actuation aerosol inhaler (Ventolin HFA) 2 puff inhalation Q4H PRN sob 3 months #18 grams 07/10/23 [Rx Last Taken Unknown] atorvastatin 40 mg tablet 40 mg PO DAILY #90 tabs 07/10/23 [Rx Last Taken Unknown] duloxetine 60 mg capsule,delayed release 60 mg PO QHS #90 caps 07/10/23 [Rx Last Taken Unknown] fesoterodine 8 mg tablet,extended release 24 hr (Toviaz) 8 mg PO DAILY BLADDER #90 tabs 07/10/23 [Rx Last Taken Unknown] hydrochlorothiazide 12.5 mg capsule 12.5 mg PO DAILY #90 caps 07/10/23 [Rx Last Taken Unknown] lisinopril 10 mg tablet 10 mg PO DAILY #90 tabs 07/10/23 [Rx Last Taken 08/20/23] B complex 11-folic acid 1 mg-C 100 mg-biotin 300 mcg-zinc 50 mg tablet 1 tab PO DAILY 08/16/23 [History Last Taken Unknown] cholecalciferol (vitamin D3) 50 mcg (2,000 unit) capsule (D3-2000) 50 mcg PO DAILY 08/16/23 [History Last Taken Unknown] multivitamin 1 tab PO DAILY 08/16/23 [History Last Taken Unknown] vitamin E 450 mg PO DAILY 08/16/23 [History Last Taken Unknown] Allergy/AdvReac Type Severity Reaction Status Date / Time adhesive tape Allergy blisters Verified 08/20/23 12:51 animal dander Allergy Other Verified 08/20/23 12:51 cefdinir Allergy RASH Verified 08/20/23 12:51 Environmental Allergies: Allergy NEEDS Verified 08/20/23 12:51 Uncoded FOLLOW-UP Food Allergies: Uncoded Allergy Shortness Verified 08/20/23 12:51 of breath Penicillins Allergy Hives Verified 08/20/23 12:51 Sulfa (Sulfonamide Allergy Hives Verified 08/20/23 12:51 Antibiotics) tetracycline [Tetracycline] Allergy Hives Verified 08/20/23 12:51 Family History (Updated 08/14/23 @ 09:16 by Clara Bain) Sister Breast cancer Cancer Diabetes Endometriosis Hypertension Thyroid disorder liver disease early 60 developing liver failure Aunt Breast cancer Cancer Diabetes Heart disease Hypertension Kidney disease kidney failure and on dialysis also diabetic Father CAD (coronary artery disease) Cancer Diabetes Heart disease Hypertension Myocardial infarction liver disease hepatobiliary failure Grandfather CAD (coronary artery disease) Diabetes Heart disease Hypertension Myocardial infarction Sudden cardiac Grandmother CVA (cerebral vascular accident) Diabetes Heart disease Hypertension Mother Cancer Diabetes Heart disease Hypertension Thyroid disorder lupus Colon polyps Brother Diabetes Heart disease Hypertension Kidney disease diabetic only one working kidney and it is working only 30 % Daughter lupus Surgical History (Updated 08/16/23 @ 15:45 by Dorcas Purdy) H/O lithotripsy History of section, classical History of cholecystectomy History of dilatation and curettage History of lumbar fusion History of repair of ACL History of thumb surgery History of thyroidectomy History of total knee arthroplasty Hx of colonoscopy Social History (Updated 08/14/23 @ 09:22 by Clara Bain) household members: spouse and children housing: house current occupational status: employed Smoking Status: Never smoker alcohol intake: current details: socially substance use type: does not use what type of physical activity do you participate in: walking frequency: 1-2 times per week do you feel safe at home: Yes Past Medical/Surgical History Planned Operation Planned Operative Procedure/s: COLONOSCOPY S.O.S: No Previous Hospitalizations/Surgeries HX Hospitalizations: No HX of Surgeries: right knee surgery lower back surgery left hand surgery Any Problems With Anesthesia: Yes (PONV, DIFFICULT TO AWAKE) You/Your Family Experience Fever (Hyperthermia) With Anes: No Cholinesterase deficiency: No Cardiovascular Hx Chest Pain within Last 2 months: No Hx of Irregular Heartbeat and/or Afib: No (heart murmur) Hx Heart Attack: No Hx Congestive Heart Failure: No Hx Rheumatic Fever: No Hx Hypertension: Yes (PER PT, CONTROLLED ON MEDS) Hx Internal Defibrillator: No Hx Pacemaker: No Hx Cardiac Catheterization: No Hx Cardiac Surgery/Stents/Etc.: No Hx Stress Test: Yes (STRESS 2008. STATES NEG/echo 2009) Hx Pain in Legs when Walking/Leg Cramps: No Respiratory Chronic Cough: No HX of Shortness of Breath: No Hoarseness: No Hx Chronic Obstructive Pulmonary Disease (COPD): No Hx Asthma: Yes (EXERCISE OR ALLERGY INDUCED. USES INHALER PRN) Hx Emphysema: No Hx Sleep Apnea: Yes CPAP: No BIPAP: Yes Hx Respiratory Tract Infection/Cold (presently): No Result (for STOP score): Positive Hx Smoking: No Smoking Status: Never smoker Gastrointestinal Hx Gastroesophageal Reflux: No (patient states resolved) Controlled With Meds: No (no meds) Hx Gastrointestinal Disorders: No Hx Gastrointestinal Bleed: No Hx Ulcer: No Hx Hiatal Hernia: No Difficulty Chewing/Swallowing: No Special diet followed at home: No Hx Unplanned Weight Loss of 20#: No HX Unplanned Weight Gain of 20#: No Neurological Hx Seizures: No HX Syncope/Blackout Spells/Unconsciousness: No Hx Transient Ischemic Attacks (TIA): No Hx Multiple Sclerosis: No Hx Parkinson's Disease: No Hx Head/Neck Injury: Yes (PLAYED SPORTS. HAD MILD HEAD INJURIES TEEN) Hx Headaches: No Hx Back Injury/Pain: Yes (spinal stenosis and had back fusion l3-5) Recent Onset of Speech Difficulty: No Restless Legs: No Does patient have nerve stimulator: No Blood Disorder Hx Leukemia: No Bleeding Tendencies: No Hx Deep Vein Thrombosis: No Hx High Cholesterol: Yes (ON MED) Blood Transmitted Disease: No Hx Hepatitis: No Hx Cirrhosis: No Hx Anemia: No Hx Blood Disorders: No Reproduction Is Patient Lactating: No Hx Hysterectomy: No Hx Tubal Ligation: No (HAD UTERINE ABLATION 2003) Are You Post Menopause: Yes Genitourinary Hx Renal Disease: Yes (stones) Hx Dialysis: No Musculoskeletal Hx Arthritis: Yes Hx Rheumatoid Arthritis: No Hx Gout: No Recent Onset of an Orthopedic Problem: No Endocrine Hx Diabetes: No Thyroid Disease: Yes Hx Steroid Therapy: No Psycho/Social Hx Substance Use: No Hx Alcohol Use: Yes (occ) Hx Anxiety: No Hx Depression: No Mental Illness: No Hx Dementia: No Miscellaneous Hx Cancer: No Recent Exposure to Contagious Disease: No Hx of C-Diff: No Any Loose Teeth: No Allergies adhesive tape Allergy (Verified 08/20/23 12:51) blisters animal dander Allergy (Verified 08/20/23 12:51) Other cefdinir Allergy (Verified 08/20/23 12:51) RASH Environmental Allergies: Uncoded Allergy (Verified 08/20/23 12:51) NEEDS FOLLOW-UP Food Allergies: Uncoded Allergy (Verified 08/20/23 12:51) Shortness of breath CERTAIN BEERS: NOT ALL BEERS OR ALCOHOL. Penicillins Allergy (Verified 08/20/23 12:51) Hives Sulfa (Sulfonamide Antibiotics) Allergy (Verified 08/20/23 12:51) Hives tetracycline [Tetracycline] Allergy (Verified 08/20/23 12:51) Hives Discharge Is Pt Admitted From a Skilled Nursing, or a Assisted: No Who Could Help: FAMILY After D/C, Where Do you Plan to Go: Return Home Vital Signs Vital Signs Vital Signs: 08/20/23 12:52 08/20/23 12:52 Temperature 97.6 F L Temperature Source Temporal Pulse Rate 99 Respiratory Rate 16 Respiratory Pattern Normal Blood Pressure 127/90 H Blood Pressure Mean 102 Blood Pressure Source Monitor Blood Pressure Position Semi-Fowlers Blood Pressure Location Left Arm Pulse Ox 96 Oxygen Delivery Method Room Air Weight Weight: 147 lb 11.355 oz Body Mass Index (BMI) 30.9 Physical Exam Const alert and oriented x3 HEENT normocephalic Eyes PERRL Resp normal respiratory effort and normal air movement Cardio regular rate and regular rhythm GI soft to palpation, non-tender and non-distended Extremity normal to inspection Assessment & Plan Assessment/Plan (1) Encounter for screening for malignant neoplasm of colon: PLAN: I explained endoscopy in detail to the patient. I explained the risks including but not limited to stroke or heart attack with anesthesia, perforation of the GI tract, bleeding, infection. I explained that any of these could necessitate further emergency surgery. The patient understands and all questions were answered sufficiently. The patient wishes to proceed with procedure. Gama Cortez MD Pager: [facility] [address] [place] [address] [address] [place] [address] Office: Surgery Risks - Colonoscopy Risks Include but are not Limited To: Risks include but are not limited to: Bleeding, perforation requiring further surgery, inability to complete colonoscopy requiring barium enema.
--- NOTE | 2023-08-20 13:45 | OP.COLON_ITS ---
Patient Name: Neema Thomas Procedure Date: 08/20/2023 1:19 PM Date of : 1960 Age: 62 Procedure: Colonoscopy Indications: Screening for colorectal malignant neoplasm Providers: Gama Cortez MD Referring MD: Maribel Clarke NP Medicines: Monitored Anesthesia Care Patient Profile: This is a 62 year old female. Refer to note in patient chart for documentation of history and physical. Last Colonoscopy: more than 10 years ago. Complications: No immediate complications. Procedure: Pre-Anesthesia Assessment: - Prior to the procedure, a History and Physical was performed, and patient medications and allergies were reviewed. The patient's tolerance of previous anesthesia was also reviewed. The risks and benefits of the procedure and the sedation options and risks were discussed with the patient. All questions were answered, and informed consent was obtained. Prior Anticoagulants: The patient has taken no anticoagulant or antiplatelet agents. After reviewing the risks and benefits, the patient was deemed in satisfactory condition to undergo the procedure. After I obtained informed consent, the scope was passed under direct vision. Throughout the procedure, the patient's blood pressure, pulse, and oxygen saturations were monitored continuously. The Colonoscope was introduced through the anus and advanced to the cecum, identified by appendiceal orifice and ileocecal valve. The colonoscopy was performed without difficulty. The patient tolerated the procedure well. The quality of the bowel preparation was good. The ileocecal valve, appendiceal orifice, and rectum were photographed. Scope In: 1:28:31 PM Scope Withdrawal Time 0 hours 6 minutes 18 seconds Scope Out: 1:38:26 PM Total Procedure Duration Time 0 hours 9 minutes 55 seconds Findings: The entire examined colon appeared normal on direct and retroflexion views. Impression: - The entire examined colon is normal on direct and retroflexion views. - No specimens collected. Recommendation: - Discharge patient to home. - Resume previous diet. - Continue present medications. - Repeat colonoscopy in 10 years for screening purposes. Procedure Code(s): --- Professional --- 14501, Colonoscopy, flexible; diagnostic, including collection of specimen(s) by brushing or washing, when performed (separate procedure) Diagnosis Code(s): --- Professional --- Z12.11, Encounter for screening for malignant neoplasm of colon CPT copyright 2021 [employer]. All rights reserved. The codes documented in this report are preliminary and upon dictionary editor review may be revised to meet current compliance requirements. Gama Cortez MD 08/20/2023 1:45:37 PM This report has been signed electronically. Number of Addenda: 0 Note Initiated On: 08/20/2023 1:19 PM
--- NOTE | 2023-08-20 13:46 | OP.CCLET_ITS ---
08/20/2023 Mariebl Clarke NP [facility] [address] [place] [id number] Re : Colonoscopy procedure for Neema Thomas Dear Ms. Clarke This procedure was performed on Sunday, August 20, 2023. My impressions and recommendations are as follows: Impressions : - The entire examined colon is normal on direct and retroflexion views. - No specimens collected. Recommendations : - Discharge patient to home. - Resume previous diet. - Continue present medications. - Repeat colonoscopy in 10 years for screening purposes. My findings are described in the full procedure note, which is enclosed. If I can be of further assistance, please feel free to contact me at Doctor phone number(s): , Work: . Sincerely, Gama Cortez MD 08/20/2023 1:45:37 PM This report has been signed electronically.
== END 2023-08-20 14:26 | disposition home or self-care (01) ==
LOC: EN 12:38 → AC 12:39
PROVIDERS: PCP Nurse Practitioner; Referring Provider Nurse Practitioner; Visit Provider Surgery
PROC: 0DJD8ZZ Inspection of Lower Intestinal Tract, Via Natural or Artificial Opening Endoscopic (ICD-10-PCS; CPT 45378; principal; 2023-08-20 13:40)
DX: Z12.11 Encounter for screening for malignant neoplasm of colon (principal); I10 Essential (primary) hypertension; E78.00 Pure hypercholesterolemia, unspecified; Z79.899 Other long term (current) drug therapy; F32.A Depression, unspecified; Z90.49 Acquired absence of other specified parts of digestive tract
CPT/HCPCS: 45378; J7120; J2405

== ENCOUNTER → 2023-10-06 | Outpatient (CLI) | payer OTHER, SELFPAY ==
[2023-10-06 12:54] LABS: Thyroid Stim Hormone (TSH) 0.02 uIU/mL (0.358-3.74)
== END | disposition home or self-care (01) ==
LOC: LAB 11:40
PROVIDERS: PCP Nurse Practitioner; Referring Provider Internal Medicine Cardiovascular Disease; Visit Provider Internal Medicine Cardiovascular Disease
DX: E03.9 Hypothyroidism, unspecified (principal); R00.0 Tachycardia, unspecified
CPT/HCPCS: 36415; 84443

== ENCOUNTER → 2023-10-16 | Outpatient (CLI) | payer OTHER, SELFPAY ==
--- OUTSIDE RECORDS SUMMARY | 2023-10-16 08:30 | XMS RPT_ITS | CCD ---
Author Name Unknown Address [address] [place] [address] Organization [facility] Care Team Providers Care Gem Technician Name Role Phone Unavailable Primary Care Provider Glen Forbes MD, Yahir Sheridan Unavailable Allergies Allergy Classification Reported Allergen(s) Allergy Type Date of Onset Reaction(s) Facility (1 source) Amoxicillin Drug Allergy 6 hives, shortness of breath [facility] Work Phone: (1 source) Hops extract; Translations: [HOPS] Drug Allergy 1 [facility] Work Phone: (1 source) House dust mite; Translations: [DUST MITES] allergy to substance 1 [facility] Work Phone: (1 source) Kingdom Animalia; Translations: [ANIMALS] allergy to substance 1 [facility] Work Phone: (1 source) Mold Extract; Translations: [MOLD] Drug Allergy 1 [facility] Work Phone: (1 source) Penicillin G Drug Allergy 6 hives, shortness of breath [facility] Work Phone: (1 source) Sulfacetamide Drug Allergy 6 hives [facility] Work Phone: (1 source) Tetracycline Drug Allergy 6 hives [facility] Work Phone: (1 source) PLANT POLLENS; Translations: [PLANT POLLENS] allergy to substance 1 [facility] Work Phone: (1 source) STINGING INSECTS; Translations: [STINGING INSECTS] allergy to substance 1 [facility] Work Phone: Medications Completed/Discontinued Medications Medication Drug Class(es) Dates Sig (Normalized) Sig (Original) aspirin 81 mg delayed release oral tablet (1 source) Platelet Aggregation Inhibitor, Nonsteroidal Anti-inflammatory Drug Start: 6 ASPIR-81 TABLET DELAYED RELEASE 1 tablet once daily ASPIRIN TBEC [id number] Caryn Castro atorvastatin 40 mg oral tablet (1 source) HMG-CoA Reductase Inhibitor Start: 1 LIPITOR 40 MG TABS 1 tablet once daily ATORVASTATIN CALCIUM [id number] Caryn Castro DULoxetine 60 mg delayed release oral capsule (1 source) Serotonin and Norepinephrine Reuptake Inhibitor Start: 6 DULOXETINE HCL 60 MG CPEP 1 capsule once daily DULOXETINE HCL [id number] Caryn Castro fenofibrate 145 mg oral tablet (1 source) Peroxisome Proliferator Receptor alpha Agonist Start: 6 FENOFIBRATE 145 MG TABS 1 tablet once daily FENOFIBRATE [id number] Caryn Castro 24 hr fesoterodine fumarate 8 mg extended release oral tablet (1 source) Start: 1 TOVIAZ 8 MG HM28X-HPI 1 tablet once daily FESOTERODINE FUMARATE [id number] Caryn Castro hydroCHLOROthiazide 12.5 mg / irbesartan 300 mg oral tablet (1 source) Thiazide Diuretic, Angiotensin 2 Receptor Constance Start: 1 IRBESARTAN-HYDROC HLOROTHIAZIDE 300-12.5 MG TABS 1 tablet daily IRBESARTAN-HYDROC HLOROTHIAZIDE [id number] Adry Cuevas [employer] levothyroxine sodium 0.088 mg oral tablet (1 source) l-Thyroxine Start: 1 LEVOTHYROXINE SODIUM 88 MCG TABS 1 tablet once daily LEVOTHYROXINE SODIUM [id number] Caryn Castro lisinopril 10 mg oral tablet (1 source) Angiotensin Converting Enzyme Inhibitor Start: LISINOPRIL 10 MG TABS 1 tablet once daily LISINOPRIL [id number] Caryn Castro Problems Active Problems Problem Classification Problem Date Documented Date Episodic/Chronic Osteoarthritis (1 source) Osteoarthrosis of the carpometacarpal joint of the thumb; Translations: [Unilateral primary osteoarthritis of first carpometacarpal joint, left hand] Onset: 02-01-2021 02-01-2021 Chronic Other nervous system disorders (1 source) Carpal tunnel syndrome, right upper limb; Translations: [Carpal tunnel syndrome] Onset: 04-14-2021 04-14-2021 Chronic Other nervous system disorders (1 source) Carpal tunnel syndrome; Translations: [Carpal tunnel syndrome, left upper limb] Onset: 02-01-2021 02-01-2021 Chronic Past or Other Problems Problem Classification Problem Date Documented Da te Episodic/Chronic Other acquired deformities (1 source) Spondylolisthesis; Translations: [Spondylolisthesis , lumbar region] Onset: 02-08-2016 02-08-2016 Episodic Other connective tissue disease (1 source) Trigger finger, right middle finger; Translations: [Trigger finger (acquired)] Onset: 04-14-2021 04-14-2021 Episodic Other connective tissue disease (1 source) Triggering of digit; Translations: [Trigger finger, left middle finger] Onset: 02-01-2021 02-01-2021 Episodic Other connective tissue disease (1 source) History of operative procedure on lumbar spinal structure; Translations: [Arthrodesis status] Onset: 08-17-2016 08-17-2016 Episodic Spondylosis; intervertebral disc disorders; other back problems (1 source) Spinal stenosis of lumbar region; Translations: [Spinal stenosis, lumbar region] Onset: 02-08-2016 02-08-2016 Episodic Unclassified (1 source) Problem Results Test Name Value Interpretation Reference Range Facil ity Vital Signs Date Time Vital Sign Value Performing Clinician Facility NEGATED: Highlighted [id number] 14:36-0500 Body height 147.32 cm Jessica Raman AT [facility] Work Phone: NEGATED: Highlighted [id number] 14:36-0500 Body height 147 cm Jessica Raman AT [facility] Work Phone: NEGATED: Highlighted [id number] 14:36-0500 Body mass index (BMI) [Ratio] 31.67 kg/m2 Jessica Raman AT [facility] Work Phone: NEGATED: Highlighted [id number] 14:36-0500 Body weight 68.49 kg Jessica Raman AT [facility] Work Phone: NEGATED: Highlighted [id number] 14:36-0500 Body weight 69 kg Jessica Raman AT [facility] Work Phone: Encounters Encounter Date Encounter Type Care Provider Facility Start: 11-12-1998 End: 11-12-1998 Patient encounter procedure Conversion Yuval Coreas [facility] Start: 11-12-1998 Results Only Conversion Yuval Coreas [facility] Procedures Date Procedure Procedure Detail Performing Clinician Start: 12-20-2021 End: 12-21-2021 BP scrn no perf at interval Yahir Forbes MD Work Phone: Start: 12-20-2021 End: 12-21-2021 Calc BMI out nrm micah nof/u Yahir Forbes MD Work Phone: Start: 12-20-2021 End: 12-21-2021 Current tobacco non-user cad cap copd pv dm Yahir Forbes MD Work Phone: Start: 12-20-2021 End: 12-21-2021 Docrev cur meds by quan Forbes MD Work Phone: Start: 12-20-2021 End: 12-21-2021 Osteoarthritis symptoms&funcjal status asses Yahir Forbes MD Work Phone: Start: 12-20-2021 End: 12-21-2021 Pain neg no plan Yahir Forbes MD Work Phone: Start: 12-20-2021 End: 12-21-2021 Patient encounter procedure Yahir Forbes MD Work Phone: Start: 11-12-1998 CONVERTED SURGICAL PATHOLOGY Conversion [facility] NEGATED: Highlighted rowStart: 12-20-2021 End: 12-20-2021 Documentation of current medications Jessica Danisha AT Plan of Treatment Date Care Activity Detail Author [facility] Work Phone: Social History Date Type Detail Facility Tobacco smoking status NHIS Unknown if ever smoked [facility] Sex Assigned At Not on file [facility] Start: 12-21-2021 End: 12-21-2021 Assertion Unknown if ever smoked [facility] Work Phone: NEGATED: Highlighted rowStart: 12-20-2021 End: 12-20-2021 Employment detail Employment detail [facility] Work Phone: Evaluation note Note Date & Type Note Facility Evaluation note There may be informa tion available, but it has not been provided by the sender. [facility] Work Phone: Instructions Note Date & Type Note Facility [facility] Work Phone: Chief Complaint Chief Complaint Description Start Date left hand post CARPOMETACARP AL ARTHROPLASTY LEFT THUMB; POSSIBLE RELEASE TRIGGER LEFT MIDDLE FINGER; INJECTION RIGHT CARPAL TUNNEL; EXCISION CUTANEOUS MASS LEFT PALM on 09/26/2021 Preliminary chief co mplaint data, not yet signed by the author as of Advance Directives There may be information available, but it has not been provided by the sender. Family History There may be information available, but it has not been provided by the sender. Additional Source Comments Source Comments (unrecognize d section and content) In the event this informatio n is protected by the Federal Confidentiality of Alcohol and Drug Abuse Patient Records regulations: The Federal rules restrict any use of the information to criminally investigate or prosecute any alcohol or drug abuse patient.[facility] Reason for Visit (unrecogniz ed section and content) FOR RECORDS PERTAINING TO PATIENTS WHO ARE OR HAVE BEEN ENROLLED IN A CHEMICAL DEPENDENCY/SUBSTANCEABUSE PROGRAM, SOME INFORMATION MAY BE OMITTED. This clinical summary was aggregated from multiple sources. Caution should be exercised in using it in the provision of clinical care. This summary normalizes information from multiple sources, and as a consequence, information in this document may materially change the coding, format and clinical context of patient data. In addition, data may be omitted in some cases. CLINICAL DECISIONS SHOULD BE BASED ON THE PRIMARY CLINICAL RECORDS. [facility]. provides no warranty or guarantee of the accuracy or completeness of information in this document.
== END | disposition home or self-care (01) ==
PROVIDERS: PCP Nurse Practitioner; Referring Provider Internal Medicine Cardiovascular Disease; Visit Provider Internal Medicine Cardiovascular Disease
DX: R00.0 Tachycardia, unspecified (principal)
CPT/HCPCS: 93225; 93226

== ENCOUNTER → 2024-01-07 | Outpatient (CLI) | payer OTHER, SELFPAY ==
[2024-01-07 20:54] LABS: AST(SGOT) 45 U/L (15-37); Alanine Aminotransfer ALT/SGPT 51 U/L (13-56); Albumin, Serum 3.5 g/dL (3.2-5.0); Alkaline Phosphatase 93 U/L (45-117); Anion Gap 7 (5-15); BUN 10 mg/dL (7-18); Chloride 108 mmol/L (98-107); Creatinine, Serum 0.59 mg/dL (0.55-1.02); EST Glomerular Filtration Rate 110 mL/min (>60); Est Glom Filt Rate - Afr Amer 133 mL/min (>60); Globulin 3.5 g/dL (2.2-4.2); Glucose 122 mg/dL (74-106); Potassium 3.5 mmol/L (3.5-5.1); Sodium Level 139 mmol/L (136-145); Thyroid Stim Hormone (TSH) 0.06 uIU/mL (0.358-3.74)
== END | disposition home or self-care (01) ==
PROVIDERS: PCP Nurse Practitioner; Visit Provider Nurse Practitioner
DX: K76.0 Fatty (change of) liver, not elsewhere classified (principal); R10.11 Right upper quadrant pain; E03.9 Hypothyroidism, unspecified; I10 Essential (primary) hypertension
CPT/HCPCS: 80053; 84443

== ENCOUNTER → 2024-04-15 | Outpatient (CLI) | payer OTHER, SELFPAY ==
[2024-04-15 11:03] LABS: Hemoglobin A1c 5.8 % (3.8-5.6)
[2024-04-15 11:06] LABS: AST(SGOT) 18 U/L (15-37); Alanine Aminotransfer ALT/SGPT 37 U/L (13-56); Albumin, Serum 3.9 g/dL (3.2-5.0); Alkaline Phosphatase 101 U/L (45-117); Bilirubin, Direct 0.09 mg/dL (0.00-0.30); Cholesterol 223 mg/dL (200); Globulin 3.7 g/dL (2.2-4.2); High Density Lipoprotein 45 mg/dL; Protein, Total 7.6 g/dL (6.4-8.2); Triglycerides 569 mg/dL
== END | disposition home or self-care (01) ==
PROVIDERS: PCP Nurse Practitioner; Referring Provider Nurse Practitioner Family; Visit Provider Nurse Practitioner Family
DX: R73.03 Prediabetes (principal); E78.5 Hyperlipidemia, unspecified; R00.0 Tachycardia, unspecified; E03.9 Hypothyroidism, unspecified
CPT/HCPCS: 36415; 80061; 80076; 83036; 84443

== ENCOUNTER → 2024-08-18 | Outpatient (CLI) | payer OTHER, SELFPAY ==
[2024-08-18 10:50] LABS: Absolute Lymphocyte Count 3.46 X10^3/uL (0.83-4.51); Absolute Neutrophil Count 3.3 X10^3/uL (2.0-7.7); Basophil# 0.05 X10^3/uL; Basophil% 0.7 % (0-1); Eosinophil# 0.22 X10^3/uL; Hematocrit 40.2 % (37-47); Hemoglobin 13.2 g/dL (12.0-15.0); Lymphocyte # 3.46 X10^3/ul (0.83-4.51); Mean Corp Hgb Conc 32.8 g/dL (32-36); Mean Corpuscular Hgb 28.3 pg (27.0-32.0); Mean Corpuscular Volume 86.1 fL (81-99); Monocyte# 0.31 X10^3/uL; Monocyte% 4.2 % (0-10); NRBC Flagged by Analyzer 0 % (0-5); Neutrophil # 3.29 X10^3/uL (2.7-7.7); Neutrophil % 44.7 % (47-70); Platelet Count 423 K/mm3 (150-450); RBC Distribution Width CV 13.7 % (11.6-14.6); RBC Distribution Width SD 42.9 fl (35.1-43.9); Red Blood Count 4.67 M/mm3 (4.2-5.4); White Blood Count 7.4 K/mm3 (4.4-11.0)
[2024-08-18 11:28] LABS: ALB/GLOB Ratio 1.2 RATIO (0.9-2.4); AST(SGOT) 29 U/L (15-37); Alanine Aminotransfer ALT/SGPT 31 U/L (13-56); Alkaline Phosphatase 53 U/L (45-117); Anion Gap 7 (5-15); BUN 12 mg/dL (7-18); BUN/Creat Ratio 16.4 RATIO (10-20); Bilirubin, Direct 0.17 mg/dL (0.00-0.30); Calcium,Total 9.3 mg/dL (8.5-10.1); Chloride 104 mmol/L (98-107); Cholesterol 250 mg/dL (200); Creatinine, Serum 0.73 mg/dL (0.55-1.02); EST Glomerular Filtration Rate 85 mL/min (>60); Est Glom Filt Rate - Afr Amer 103 mL/min (>60); Globulin 3.4 g/dL (2.2-4.2); Glucose 97 mg/dL (74-106); High Density Lipoprotein 49 mg/dL; Potassium 3.6 mmol/L (3.5-5.1); Protein, Total 7.4 g/dL (6.4-8.2); Sodium Level 137 mmol/L (136-145); Triglycerides 242 mg/dL; Very Low Density Lipoprotein 48 mg/dL (5-40)
== END | disposition home or self-care (01) ==
LOC: LAB 10:18
PROVIDERS: PCP Nurse Practitioner; Referring Provider Nurse Practitioner; Visit Provider Nurse Practitioner
DX: Z00.00 Encounter for general adult medical examination without abnormal findings (principal)
CPT/HCPCS: 36415; 80053; 80061; 82248; 84443; 85025

== ENCOUNTER → 2024-10-03 | Outpatient (CLI) | payer OTHER, SELFPAY ==
[2024-10-03 11:00] LABS: Thyroid Stim Hormone (TSH) 0.053 uIU/mL (0.358-3.740)
== END | disposition home or self-care (01) ==
LOC: LAB 10:12
PROVIDERS: PCP Nurse Practitioner; Referring Provider Nurse Practitioner; Visit Provider Nurse Practitioner
DX: E03.9 Hypothyroidism, unspecified (principal)
CPT/HCPCS: 36415; 84443

== ENCOUNTER → 2024-10-23 | Outpatient (CLI) | payer OTHER, SELFPAY ==
[2024-10-23 11:28] LABS: Cholesterol 193 mg/dL (200); High Density Lipoprotein 50 mg/dL; Thyroid Stim Hormone (TSH) 0.041 uIU/mL (0.358-3.740); Triglycerides 238 mg/dL; Very Low Density Lipoprotein 48 mg/dL (5-40)
== END | disposition home or self-care (01) ==
LOC: LAB 10:42
PROVIDERS: PCP Nurse Practitioner; Referring Provider Nurse Practitioner; Visit Provider Nurse Practitioner
DX: E03.9 Hypothyroidism, unspecified (principal); E78.2 Mixed hyperlipidemia
CPT/HCPCS: 36415; 80061; 84443

== ENCOUNTER → 2024-11-03 | Outpatient (CLI) | payer OTHER, SELFPAY ==
--- NOTE | 2024-11-03 13:29 | BI_ITS ---
MAMMOGRAPHY - BILATERAL SCREENING REASON FOR EXAM: Female, 64 years old. Routine annual screening examination. PERTINENT HISTORY: Sister with breast cancer. TECHNIQUE: Digital bilateral breast eliazar (3D mammographic acquisition) in the CC and MLO projections. 2-D mediolateral oblique (MLO) and craniocaudad (CC) views of both breasts were obtained. CAD: Full Field Digital Mammography with Computer Added Detection was performed. COMPARISON: Comparison is made with prior study dated August 24, 2022. FINDINGS: Breast Composition: The breasts are heterogeneously dense, which may obscure small masses. There are no dominant masses or suspicious calcifications. Stable bilateral fat containing axillary lymph nodes. No other significant abnormalities are identified. There has been no significant change since the prior study. BI/SCRN MAMM (CAD)W/ELIAZAR BILAT IMPRESSION: Stable bilateral screening mammogram. Yearly follow-up mammogram recommended. (A) ASSESSMENT CATEGORY: BIRADS Category 2: Benign. A letter regarding these results will be sent to the patient by the facility within 30 days. Approximately 10% of breast cancers are not detected by mammography. A normal mammogram should not delay biopsy of a clinically suspicious abnormality. [id number] Electronically Signed: Lauri Coulter MD at 13:58 EST ,
== END | disposition home or self-care (01) ==
LOC: OPBI 13:28
PROVIDERS: PCP Nurse Practitioner; Referring Provider Nurse Practitioner; Visit Provider Nurse Practitioner
DX: Z12.31 Encounter for screening mammogram for malignant neoplasm of breast (principal)
CPT/HCPCS: 77063; 77067

== ENCOUNTER → 2025-02-12 | Outpatient (CLI) | payer OTHER, SELFPAY ==
[2025-02-12 10:31] LABS: Absolute Lymphocyte Count 3.35 X10^3/uL (0.83-4.51); Absolute Neutrophil Count 3.1 X10^3/uL (2.0-7.7); Basophil# 0.06 X10^3/uL; Basophil% 0.8 % (0-1); Eosinophils% 4.1 % (0-5); Hematocrit 40.3 % (37-47); Hemoglobin 13.5 g/dL (12.0-15.0); Lymphocyte # 3.35 X10^3/ul (0.83-4.51); Lymphocyte % 45.6 % (19-41); Mean Corp Hgb Conc 33.5 g/dL (32-36); Mean Corpuscular Hgb 28.8 pg (27.0-32.0); Mean Corpuscular Volume 85.9 fL (81-99); Mean Platelet Vol. 9.4 fl (6.2-12.0); Monocyte# 0.46 X10^3/uL; Monocyte% 6.3 % (0-10); NRBC Flagged by Analyzer 0 % (0-5); Neutrophil # 3.09 X10^3/uL (2.7-7.7); Platelet Count 390 K/mm3 (150-450); RBC Distribution Width CV 13.5 % (11.6-14.6); RBC Distribution Width SD 41.8 fl (35.1-43.9); Red Blood Count 4.69 M/mm3 (4.2-5.4); White Blood Count 7.4 K/mm3 (4.4-11.0)
[2025-02-12 11:16] LABS: Hemoglobin A1c 6.3 % (<=5.6)
[2025-02-12 11:25] LABS: Cholesterol 206 mg/dL (<=200); High Density Lipoprotein 42 mg/dL; Lipase 38 U/L (13-75); Low Density Lipoprotein Calc. 113 mg/dL; Triglycerides 253 mg/dL; Very Low Density Lipoprotein 51 mg/dL (5-40); cholesterol:hdl ratio screen 4.86
[2025-02-12 13:24] LABS: ALB/GLOB Ratio 1.4 RATIO (0.9-2.4); AST(SGOT) 32 U/L (<=31); Alanine Aminotransfer ALT/SGPT 27 U/L (<=34); Albumin, Serum 4.4 g/dL (3.4-4.8); Alkaline Phosphatase 64 U/L (35-104); Anion Gap 15 (5-15); BUN 17 mg/dL (4-19); BUN/Creat Ratio 22.1 RATIO (10-20); Calcium,Total 9.6 mg/dL (7.6-11.0); Carbon Dioxide 20.4 mmol/L (21.0-32.0); Chloride 104 mmol/L (98-108); Creatinine, Serum 0.75 mg/dL (0.70-1.20); EST Glomerular Filtration Rate 89 (>60); Globulin 3.2 g/dL (2.2-4.2); Glucose 104 mg/dL (70-99); Potassium 3.9 mmol/L (3.3-5.1); Protein, Total 7.6 g/dL (5.9-8.4); Sodium Level 139 mmol/L (133-145); Total Bilirubin 0.27 mg/dL (0.00-1.30)
== END | disposition home or self-care (01) ==
LOC: LAB 09:38
PROVIDERS: PCP Nurse Practitioner; Referring Provider Nurse Practitioner; Visit Provider Nurse Practitioner
DX: R10.32 Left lower quadrant pain (principal); R73.03 Prediabetes; E03.9 Hypothyroidism, unspecified; K76.0 Fatty (change of) liver, not elsewhere classified; E78.2 Mixed hyperlipidemia; K21.9 Gastro-esophageal reflux disease without esophagitis; I10 Essential (primary) hypertension; Z68.30 Body mass index [BMI] 30.0-30.9, adult
CPT/HCPCS: 36415; 80053; 80061; 83036; 83690; 84443; 85025

== ENCOUNTER → 2025-03-12 | Outpatient (CLI) | payer OTHER, SELFPAY ==
[2025-03-12 22:54] LABS: Thyroid Stim Hormone (TSH) 0.156 uIU/mL (0.300-4.200)
== END | disposition home or self-care (01) ==
LOC: OLS.AHF 22:06 → LABSPEC 03-13 09:47
PROVIDERS: PCP Nurse Practitioner; Referring Provider Nurse Practitioner; Visit Provider Nurse Practitioner
DX: E03.9 Hypothyroidism, unspecified (principal)
CPT/HCPCS: 84443

== ENCOUNTER → 2025-05-12 | Outpatient (CLI) | payer OTHER, SELFPAY ==
--- OUTSIDE RECORDS SUMMARY | 2025-05-12 20:56 | XMS RPT_ITS | CCD ---
Author Organization [facility]ini[facility] Care Team Providers Care Direct Support Staff Member Name Role Phone Unavailable Primary Care Provider Unavaillinda Forbes MD, Yahir Sheridan Unavailable Clarke BILL OF MATERIALS CLERK, BILL OF MATERIALS CLERK-C Maribel Primary Care Provider Clarke BILL OF MATERIALS CLERK, BILL OF MATERIALS CLERK-C Maribel Referring Provider [phone] Dr. Kvng Black Attending Provider Clara Bain Attending Provider Unavailable Dr. Dorian Florentino Attending Provider Clarke BILL OF MATERIALS CLERK, BILL OF MATERIALS CLERK-C Maribel Primary Care Provider Clarke BILL OF MATERIALS CLERK, BILL OF MATERIALS CLERK-C Maribel Referring Provider Clarke BILL OF MATERIALS CLERK, BILL OF MATERIALS CLERK-C Maribel Primary Care Provider Clarke BILL OF MATERIALS CLERK, BILL OF MATERIALS CLERK-C Maribel Referring Provider Dr. Jermaine Gilmore Attending Provider Dr. Dorian Florentino Attending Provider Clarke BILL OF MATERIALS CLERK, BILL OF MATERIALS CLERK-C Maribel Primary Care Provider Clarke BILL OF MATERIALS CLERK, BILL OF MATERIALS CLERK-C Maribel Referring Provider [phone] Dr. Jermaine Gilmore Attending Provider Dr. Dorian Florentino Attending Provider Clarke BILL OF MATERIALS CLERK, BILL OF MATERIALS CLERK-C Maribel Primary Care Provider Clarke BILL OF MATERIALS CLERK, BILL OF MATERIALS CLERK-C Maribel Referring Provider [phone] Dr. Jermaine Gilmore Attending Provider [phone] Clarke BILL OF MATERIALS CLERK, BILL OF MATERIALS CLERK-C Maribel Primary Care Provider Clarke BILL OF MATERIALS CLERK, BILL OF MATERIALS CLERK-C Maribel Referring Provider Dr. Jermaine Gilmore Attending Provider Clara Bain Attending Provider Unavailable Dr. Gama Cortez Attending Provider Dr. Gama Cortez Other Provider Clarke BILL OF MATERIALS CLERK, BILL OF MATERIALS CLERK-C Maribel Primary Care Provider Clarke BILL OF MATERIALS CLERK, BILL OF MATERIALS CLERK-C Maribel Referring Provider Dr. Dorian Florentino Attending Provider DENISE Karimi Attending Provider Clarke BILL OF MATERIALS CLERK, BILL OF MATERIALS CLERK-C Maribel Primary Care Provider Clarke BILL OF MATERIALS CLERK, BILL OF MATERIALS CLERK-C Maribel Referring Provider Dr. Dorian Florentino Attending Provider DENISE Karimi Attending Provider Clarke BILL OF MATERIALS CLERK-C, Maribel Primary Care Provider Clarke BILL OF MATERIALS CLERK-C, Maribel Attending Provider Clarke BILL OF MATERIALS CLERK-C, Maribel Referring Provider Clarke BILL OF MATERIALS CLERK, Maribel Referring Unavailable Clarke BILL OF MATERIALS CLERK, Maribel Primary Care Unavailable Roof BILL OF MATERIALS CLERK, Gus H Attending Unavailable Collier BILL OF MATERIALS CLERK, Isabella Attending Unavailable Clarke BILL OF MATERIALS CLERK, Maribel Referring Unavailable Clarke BILL OF MATERIALS CLERK, Maribel Primary Care Unavailable Clarke BILL OF MATERIALS CLERK, Maribel Primary Care Unavailable Clarke BILL OF MATERIALS CLERK, Maribel Attending Unavailable Clarke BILL OF MATERIALS CLERK, Maribel Referring Unavailable Clarke BILL OF MATERIALS CLERK, Maribel Primary Care Unavailable Clarke BILL OF MATERIALS CLERK, Maribel Attending Unavailable Clarke BILL OF MATERIALS CLERK, Maribel Referring Unavailable Clarke BILL OF MATERIALS CLERK, Maribel Referring Unavailable Clarke BILL OF MATERIALS CLERK, Maribel Primary Care Unavailable Clarke BILL OF MATERIALS CLERK, Maribel Attending Unavailable Clarke BILL OF MATERIALS CLERK, Maribel Primary Care Unavailable Roof BILL OF MATERIALS CLERK, Gus H Attending Unavailable Roof BILL OF MATERIALS CLERK, Gus H Referring Unavailable Clarke BILL OF MATERIALS CLERK, Maribel Referring Unavailable Clarke BILL OF MATERIALS CLERK, Maribel Attending Unavailable Clarke BILL OF MATERIALS CLERK, Maribel Primary Care Unavailable Clarke BILL OF MATERIALS CLERK, Maribel Referring Unavailable Clarke BILL OF MATERIALS CLERK, Maribel Attending Unavailable Clarke BILL OF MATERIALS CLERK, Maribel Primary Care Unavailable Clarke BILL OF MATERIALS CLERK, Maribel Referring Unavailable Clarke BILL OF MATERIALS CLERK, Maribel Attending Unavailable Maribel Clarke NP Primary Care Unavailable Allergies Allergy Classification Reported Allergen(s) Allergy Type Date of Onset Reaction(s) Facility (1 source) Amoxicillin Drug Allergy 6 hives, shortness of breath [facility] Work Phone: (1 source) Hops extract; Translations: [HOPS] Drug Allergy 1 [facility] Work Phone: (1 source) House dust mite; Translations: [DUST MITES] allergy to substance 1 [facility] Work Phone: (1 source) Kingdom Animalia; Translations: [ANIMALS] allergy to substance 1 [facility] Work Phone: (1 source) Mold Extract; Translations: [MOLD] Drug Allergy 1 [facility] Work Phone: (1 source) Penicillin G Drug Allergy 6 hives, shortness of breath [facility] Work Phone: (1 source) Sulfacetamide Drug Allergy 6 hives [facility] Work Phone: (1 source) Tetracycline Drug Allergy 6 hives [facility] Work Phone: (1 source) PLANT POLLENS; Translations: [PLANT POLLENS] allergy to substance 1 [facility] Work Phone: (1 source) STINGING INSECTS; Translations: [STINGING INSECTS] allergy to substance 1 [facility] Work Phone: (12 sources) Adhesive Tape; Translations: [adhesive tape] Allergy to substance 2 blisters [facility] (11 sources) cefdinir Drug Allergy 2 RASH [facility] (5 sources) Environmental allergy Allergy to substance 2 Other [facility] Work Phone: (12 sources) Penicillins; Translations: [Penicillins] Allergy to substance 2 [facility] (12 sources) Sulfonamides (Antibiotic); Translations: [Sulfa (Sulfonamide Antibiotics)] Allergy to substance 2 [facility] (11 sources) Tetracycline Drug Allergy 2 [facility] (12 sources) ANIMAL DANDER; Translations: [animal dander] Allergy to substance 2 Other [facility] (5 sources) CERTAIN BEERS Allergy to substance 2 Shortness of breath [facility] Work Phone: (7 sources) Environmental Allergies: Uncoded; Translations: [Environmental Allergies: Uncoded] Allergy to substance 2 NEEDS FOLLOW-UP [facility] (7 sources) Food Allergies: Uncoded; Translations: [Food Allergies: Uncoded] Allergy to substance 2 Shortness of breath [facility] Comment on above: CERTAIN BEERS: NOT A LL BEERS OR ALCOHOL. (1 source) cefdinir Drug Allergy 4 [facility] Repository (1 source) Tetracycline Drug Allergy 4 [facility] Repository Medications Current Medications Medication Drug Class(es) Dates Sig (Normalized) Sig (Original) [id number] 200 actuat albuterol 0.09 mg/actuat metered dose inhaler (20 sources) beta2-Adrenergic Agonist Start: 01-09-2022 take 1 puff(s) by inhalation every four hours Albuterol Sulfate (Ventolin Hfa) 90 mcg/actuation HFA aerosol inhaler Active 2 PUFF INHALATION Q4H January 09, 2022 3:53pm Start: 01-09-2022 End: 08-11-2024 Albuterol Sulfate (Ventolin Hfa) 90 mcg/actuation HFA aerosol inhaler Active 2 NMA INHALATION Q4H as needed for sob August 11, 2024 3:25pm Start: 01-09-2022 End: 07-10-2023 take 1 puff(s) by inhalation every four hours Albuterol Sulfate (Ventolin Hfa) 90 mcg/actuation HFA aerosol inhaler Discontinued 2 PUFF INHALATION Q4H 18 90 January 11, 2023 4:16pm July 10, 2023 7:41pm atorvastatin 40 mg oral tablet (20 sources) HMG-CoA Reductase Inhibitor Start: 01-24-2020 End: 08-11-2024 take 1 tablet by mouth once daily Atorvastatin 40 mg tablet Active 40 mg PO DAILY August 11, 2024 3:25pm B Complex 67-Aeezq-F-Biot-Zinc (3 sources) Start: 08-16-2023 take 1 tablet by mouth once daily B Complex 77-Yysft-U-Biot-Zin c Active 1 TABLET PO DAILY August 16, 2023 12:00am administer with a meal Start: 08-16-2023 take 1 tablet by edmond th once daily B Complex 51-Fyjfd-W-Biot-Zinc Active 1 TABLET PO DAILY August 15, 2023 11:00pm administer with a meal B Complex 31-Cxrao-M-Biot-Zinc [id number] la-up-hxj-mg tablet (1 source) Start: 08-16-2023 B Complex 83-Lxqry-L-Biot-Zinc [id number] ee-mr-svt-mg tablet Active 1 {tbl} PO DAILY August 16, 2023 12:00am administer with a meal cetirizine hydrochloride 10 mg oral capsule (20 sources) Histamine-1 Receptor Antagonist Start: 07-12-2021 take 1 capsule by mouth once daily as needed Cetirizine (Zyrtec) 10 mg Capsule Active 10 mg PO DAILY as needed for allergies July 12, 2021 12:00am Start: 01-23-2020 End: 01-10-2021 take 1 tablet by mouth at bedtime as needed Cetirizine 10 MG tablet Discontinued 10 mg PO AT BEDTIME NEEDED as needed for sinusitis January 24, 2020 10:20am January 10, 2021 8:57am cholecalciferol 0.05 mg oral capsule (4 sources) Vitamin D Start: 08-16-2023 Cholecalciferol (Vitamin D3) (D3-2000) 50 mcg (2,000 unit) capsule Active 50 ug PO DAILY August 16, 2023 12:00am DULoxetine 30 mg delayed release oral capsule (20 sources) Serotonin and Norepinephrine Reuptake Inhibitor Start: 08-11-2024 take 1 capsule by mouth once daily Duloxetine 30 mg capsule,delayed release(DR/EC) Active 30 mg PO daily August 11, 2024 12:00am Start: 09-18-2017 End: 08-11-2024 take 1 capsule by mouth at bedtime Duloxetine 60 mg capsule,delayed release(DR/EC) Discontinued 60 mg PO AT BEDTIME July 10, 2023 7:40pm August 11, 2024 3:26pm Start: 02-08-2016 DULOXETINE HCL 60 MG CPEP 1 capsule once daily DULOXETINE HCL [id number] Caryn Castro fenofibrate 145 mg oral tablet (20 sources) Peroxisome Proliferator Receptor alpha Agonist Start: 04-15-2024 End: 08-11-2024 take 1 tablet by mouth at bedtime Fenofibrate Nanocrystallized 145 mg tablet Active 145 mg PO AT BEDTIME August 11, 2024 3:26pm Start: 02-08-2016 FENOFIBRATE 14 5 MG TABS 1 tablet once daily FENOFIBRATE [id number] Caryn Castro Start: 12-12-2013 End: 07-14-2022 take 1 tablet by mouth at bedtime Fenofibrate Nanocrystallized 145 mg tablet Discontinued 145 mg PO AT BEDTIME January 09, 2022 3:52pm July 14, 2022 4:42pm 24 hr fesoterodine fumarate 8 mg extended release oral tablet (20 sources) Start: 06-26-2019 End: 08-11-2024 take 1 tablet by mouth once daily Fesoterodine (Toviaz) 8 mg tablet extended release 24 hr Active 8 mg PO DAILY August 11, 2024 3:26pm Start: 12-12-2013 End: 11-06-2018 take 1 tablet by mouth once daily Fesoterodine 8 MG tablet extended release 24 hr Discontinued 8 mg PO DAILY December 12, 2013 1:00am November 06, 2018 7:37pm hydroCHLOROthiazide 12.5 mg oral capsule (20 sources) Thiazide Diuretic Start: 12-12-2013 End: 08-11-2024 take 1 capsule by mouth once daily Hydrochlorothiazide 12.5 mg capsule Active 12.5 mg PO DAILY August 11, 2024 3:26pm levothyroxine sodium 0.125 mg oral tablet (20 sources) l-Thyroxine Start: 02-12-2025 End: 03-16-2025 take 1 tablet by mouth once daily Levothyroxine 125 mcg tablet Active 125 ug PO daily March 16, 2025 2:49pm Start: 08-25-2024 End: 03-16-2025 take 1 tablet by mouth once daily Levothyroxine 112 mcg tablet Discontinued 112 ug PO daily October 21, 2024 6:35pm March 16, 2025 2:49pm Start: 10-02-2023 End: 10-21-2024 take 1 tablet by mouth once daily Levothyroxine 100 mcg tablet Discontinued 100 ug PO daily January 10, 2024 12:31pm October 21, 2024 6:36pm skip 2 days a week Start: 05-23-2023 End: 10-02-2023 Levothyroxine 100 mcg tablet Discontinued 88 ug PO daily May 23, 2023 6:55am October 02, 2023 4:03pm Start: 05-23-2023 End: 10-02-2023 take 88 ug by mouth once daily Levothyroxine Discontin ued 88 MCG PO daily May 23, 2023 6:55am October 02, 2023 4:03pm Start: 01-12-2023 End: 05-23-2023 take 1 tablet by mouth once daily Levothyroxine 100 mcg tablet Discontinued 100 ug PO daily January 12, 2023 12:00am May 23, 2023 6:56am Start: 11-07-2018 End: 01-12-2023 take 1 tablet by mouth once daily Levothyroxine 88 mcg tablet Discontinued 88 ug PO DAILY January 08, 2019 2:16pm January 12, 2020 3:39pm Start: 07-25-2018 End: 11-07-2018 take 1 capsule by mouth once daily Levothyroxine 100 mcg capsule Discontinued 100 ug PO DAILY July 25, 2018 12:00am November 07, 2018 2:39pm Start: 04-08-2018 End: 07-25-2018 Levothyroxine 88 mcg capsule Discontinued 75 ug PO daily May 17, 2018 8:51am June 11, 2018 7:19pm Start: 02-05-2018 End: 04-08-2018 take 1 capsule by mouth once daily Levothyroxine 88 mcg capsule Discontinued 88 ug PO daily 60 February 05, 2018 12:00am April 08, 2018 4:16pm Start: 12-10-2017 End: 02-05-2018 take 1 capsule by mouth once daily Levothyroxine 100 mcg capsule Discontinued 100 ug PO daily 30 December 10, 2017 1:00am February 05, 2018 8:42am Start: 09-24-2017 End: 12-10-2017 take 1 tablet by mouth once daily Levothyroxine 112 MCG tablet Discontinued 112 ug PO DAILY 90 September 24, 2017 1:00am December 10, 2017 9:19am lisinopril 10 mg oral tablet (20 sources) Angiotensin Converting Enzyme Inhibitor Start: 12-12-2013 End: 08-11-2024 take 1 tablet by mouth once daily Lisinopril 10 mg tablet Active 10 mg PO DAILY 90 August 11, 2024 3:27pm Liver renew (1 source) Start: 08-11-2024 Liver renew Ac tive PO August 11, 2024 12:00am Multivitamin preparation (3 sources) Start: 08-16-2023 take 1 tablet by mouth once daily Multivitamin Active 1 TABLET PO DAILY August 16, 2023 12:00am Start: 08-16-2023 take 1 tablet by edmond th once daily Multivitamin Active 1 TABLET PO DAILY August 15, 2023 11:00pm Multivitamin tablet (1 source) Start: 08-16-2023 Multivitamin t ablet Active 1 {tbl} PO DAILY August 16, 2023 12:00am vitamin e 180 mg oral capsule (5 sources) Start: 04-15-2024 take 1 capsule by mouth once daily Vitamin E (Dl, Acetate) 180 mg (400 unit) capsule Active 180 mg PO DAILY April 15, 2024 12:00am Start: 08-16-2023 End: 04-15-2024 take 450 mg by mouth once daily vitamin E Discontinued 450 mg PO DAILY August 16, 2023 12:00am April 15, 2024 9:37am Completed/Discontinued Medications Medication Drug Class(es) Dates Sig (Normalized) Sig (Original) acetaminophen 500 mg oral tablet (20 sources) Start: 07-26-2021 End: 10-12-2021 take 2 tablets by mouth every six hours Acetaminophen 500 mg tablet Discontinued 1000 mg PO EVERY 6 HOURS 100 August 08, 2021 10:38am October 12, 2021 9:26am Start: 07-26-2021 End: 10-12-2021 take 1000 mg by mouth every six hours Acetaminophen Discontinued 1000 MG PO EVERY 6 HOURS 100 August 08, 2021 10:38am October 12, 2021 9:26am acetaminophen 250 mg / aspirin 250 mg / caffeine 65 mg oral tablet (11 sources) Platelet Aggregation Inhibitor, Nonsteroidal Anti-inflammatory Drug, Central Nervous System Stimulant, Methylxanthine Start: 01-23-2020 End: 02-19-2020 Yyrddpy-Hrckhkpbmnbgv-Zfuxve ne 1 EACH tablet Discontinued 2 {tbl} PO DAILY as needed for Migraine Symptoms January 23, 2020 12:00am February 19, 2020 9:51am Start: 01-23-2020 End: 02-19-2020 take 2 tablets by mouth once daily Pgvfcnb-Bktggqxqmqkvk-Euchgsui Discontin ued 2 TABLET PO DAILY January 23, 2020 12:00am February 19, 2020 9:51am acetaminophen 325 mg / HYDROcodone bitartrate 5 mg oral tablet (20 sources) Opioid Agonist Start: 09-24-2017 End: 10-12-2017 Hydrocodone-Acetaminophen 1 TABLET tablet Discontinued 1 {tbl} PO EVERY 6 HOURS NEEDED as needed for Pain September 24, 2017 1:00am October 12, 2017 1:00pm Start: 09-24-2017 End: 10-12-2017 Hydrocodone-Acetaminophen 1 TABLET tablet Discontinued 1 {tbl} PO EVERY 4 HOURS NEEDED as needed for Pain September 24, 2017 1:00am October 12, 2017 1:00pm Start: 09-24-2017 End: 10-12-2017 take 1 tablet by mouth every six hours as needed Hydrocodone-Acetaminophen Discontinued 1 TABLET PO EVERY 6 HOURS NEEDED September 24, 2017 1:00am October 12, 2017 1:00pm Start: 09-24-2017 End: 10-12-2017 take 1 tablet by mouth every four hours as needed Hydrocodone-Acetaminophen Discontinued 1 TABLET PO EVERY 4 HOURS NEEDED September 24, 2017 1:00am October 12, 2017 1:00pm acetaminophen 325 mg / oxyCODONE hydrochloride 5 mg oral tablet (11 sources) Opioid Agonist Start: 07-30-2018 End: 08-02-2018 Oxycodone-Acetaminophen 1 TABLET tablet Discontinued 1 - 2 {tbl} PO EVERY 6 HOURS NEEDED as needed for Pain 10 July 30, 2018 12:00am August 01, 2018 12:00am August 02, 2018 12:11am Start: 07-30-2018 End: 08-02-2018 take 1 tablet by mouth every six hours as needed Oxycodone-Acetaminophen Discontinued 1 - 2 TABLET PO EVERY 6 HOURS NEEDED 10 July 30, 2018 12:00am August 02, 2018 12:11am apixaban 2.5 mg oral tablet (11 sources) Factor Xa Inhibitor Start: 07-26-2021 End: 10-12-2021 take 1 tablet by mouth twice daily in the evening Apixaban (Eliquis) 2.5 mg tablet Discontinued 2.5 mg PO TWICE A DAY July 26, 2021 12:00am October 12, 2021 9:26am begin 10:00 pm on 07/26/2021 aspirin 81 mg delayed release oral tablet (20 sources) Platelet Aggregation Inhibitor, Nonsteroidal Anti-inflammatory Drug Start: 01-24-2020 End: 08-08-2021 take 1 tablet by mouth once daily Aspirin 81 MG tablet Discontinued 81 mg PO DAILY@0800 January 24, 2020 12:00am August 08, 2021 10:21am Start: 02-08-2016 End: 08-15-2019 take 1 tablet by mouth once daily Aspirin 81 MG tablet Discontinued 81 mg PO DAILY@0800 September 18, 2017 1:00am August 15, 2019 5:06pm azithromycin 250 mg oral tablet (11 sources) Macrolide Antimicrobial Start: 11-06-2018 End: 11-11-2018 take 2 tablets by mouth once daily, then take 1 tablet by mouth once daily at mealtime Azithromycin 250 mg tablet Discontinued 250 mg PO daily 6 November 06, 2018 1:00am November 10, 2018 1:00am November 11, 2018 1:09am 2 po qd for 1 day then 1 po qd for 4 days with food or after eating cefdinir 300 mg oral capsule (3 sources) Cephalosporin Antibacterial Start: 08-31-2023 End: 10-02-2023 take 1 capsule by mouth twice daily Cefdinir 300 mg capsule Discontinued 300 mg PO TWICE A DAY August 31, 2023 1:00am October 02, 2023 4:01pm ciprofloxacin 500 mg oral tablet (20 sources) Quinolone Antimicrobial Start: 06-17-2020 End: 07-01-2020 take 1 tablet by mouth twice daily Ciprofloxacin Hcl (Cipro) 500 mg tablet Discontinued 500 mg PO TWICE A DAY June 17, 2020 12:00am July 01, 2020 7:57pm Start: 06-11-2018 End: 07-25-2018 take 1 tablet by mouth twice daily Ciprofloxacin Hcl (Cipro) 500 mg tablet Discontinued 500 mg PO TWICE A DAY June 11, 2018 12:00am July 25, 2018 4:30pm clarithromycin 500 mg oral tablet (11 sources) Macrolide Antimicrobial Start: 11-04-2019 End: 01-12-2020 take 1 tablet by mouth twice daily Clarithromycin 500 mg tablet Discontinued 500 mg PO TWICE A DAY November 04, 2019 1:00am January 12, 2020 3:34pm clobetasol propionate 0.5 mg/ml topical cream (5 sources) Corticosteroid Start: 03-26-2023 End: 05-23-2023 Clobetasol 0.05 % cream Discontinued 1 NMA TOPICAL TWICE A DAY March 26, 2023 12:00am May 23, 2023 6:55am fluconazole 150 mg oral tablet (5 sources) Azole Antifungal Start: 03-16-2023 End: 03-26-2023 Fluconazole 150 mg tablet Discontinued 150 mg PO Every 3 Days March 16, 2023 12:00am March 26, 2023 5:17pm take 1 tab every 3 days till gone hydroCHLOROthiazide 12.5 mg / irbesartan 300 mg oral tablet (1 source) Thiazide Diuretic, Angiotensin 2 Receptor Constance Start: 05-09-2021 IRBESARTAN-HYDROCH LOROTHIAZIDE 300-12.5 MG TABS 1 tablet daily IRBESARTAN-HYDROCH LOROTHIAZIDE [id number] Adry Cuevas LPN 200 actuat ipratropium bromide 0.017 mg/actuat metered dose inhaler (20 sources) Anticholinergic Start: 11-06-2018 End: 08-15-2019 Ipratropium [place] 17 mcg/actuation HFA aerosol inhaler Discontinued 1 NMA INHALATION NEEDED as needed for Wheezing 12.9 90 November 06, 2018 7:38pm October 31, 2019 1:00am August 15, 2019 5:06pm Start: 12-12-2013 End: 11-06-2018 Ipratropium [place] 12.9 GM inhaler Discontinued 1 NMA INHALATION NEEDED as needed for Wheezing December 12, 2013 1:00am November 06, 2018 7:40pm Start: 12-12-2013 End: 08-15-2019 Ipratropium [place] Disconti nued 1 PUFF INHALATION NEEDED 12.9 90 November 06, 2018 7:38pm August 15, 2019 5:06pm methylPREDNISolone acetate 40 mg/ml injectable suspension (3 sources) Corticosteroid Start: 01-10-2021 End: 01-10-2021 Depo-Medrol (methylprednisolone acetate) 40 mg/mL suspension for injection Discontinued 80 MG INTRAARTIC ONCE 2 January 10, 2021 8:23am January 10, 2021 9:40am 24 hr metoprolol succinate 25 mg extended release oral tablet (20 sources) beta-Adrenergic Constance Start: 09-24-2017 End: 08-15-2019 take 1 tablet by mouth once daily Metoprolol Succinate 25 mg tablet extended release 24 hr Discontinued 25 mg PO DAILY November 06, 2018 7:40pm August 15, 2019 5:06pm metroNIDAZOLE 250 mg oral tablet (1 source) Nitroimidazole Antimicrobial Start: 02-11-2025 End: 02-21-2025 take 1 tablet by mouth three times daily Metronidazole 250 mg tablet Discontinued 250 mg PO THREE TIMES A DAY 30 February 11, 2025 12:00am February 20, 2025 12:00am February 21, 2025 12:09am Multivitamin With Minerals (10 sources) Start: 01-23-2020 End: 08-08-2021 take 1 tablet by mouth once daily Multivitamin With Minerals Discontinued 1 TABLET PO DAILY January 23, 2020 4:27pm August 08, 2021 10:20am Start: 01-23-2020 End: 08-08-2021 take 1 tablet by mouth once daily Multivitamin With Minerals Discontinued 1 TABLET PO DAILY January 22, 2020 11:00pm August 08, 2021 9:20am Start: 01-23-2020 End: 08-08-2021 take 1 tablet by mouth once daily Multivitamin With Minerals Discontinued 1 TABLET PO DAILY January 23, 2020 12:00am August 08, 2021 10:20am Multivitamin With Minerals 1 EACH tablet (1 source) Start: 01-23-2020 End: 08-08-2021 take 1 tablet by mouth once daily Multivitamin With Minerals 1 EACH tablet Discontinued 1 {tbl} PO DAILY January 23, 2020 12:00am August 08, 2021 10:20am ofloxacin 3 mg/ml ophthalmic solution (11 sources) Quinolone Antimicrobial Start: 08-15-2019 End: 08-20-2019 take 0.3 drop(s) into the eye(s) every four hours Ofloxacin 0.3 % drops Discontinued 2 NMA OPHTHALMIC Q4H 10 August 15, 2019 12:00am August 19, 2019 1:00am August 20, 2019 1:07am administer while awake omega-3 acid ethyl esters (senior care) 1000 mg oral capsule (11 sources) Start: 06-11-2018 End: 08-15-2019 [place] 9-Rnm-Fbv-Fish Oil (Fish Oil) 1,000 mg (120 mg-180 mg) capsule Discontinued 3 NMA PO .q daily June 11, 2018 12:00am August 15, 2019 5:06pm oxyCODONE hydrochloride 5 mg oral tablet (20 sources) Opioid Agonist Start: 08-03-2021 End: 08-10-2021 take 5-10 mg by mouth every six hours as needed for pain Oxycodone 5 mg tablet Discontinued 5 - 10 mg PO EVERY 6 HOURS as needed for Pain Score 6-10/10 56 7 August 03, 2021 August 09, 2021 12:00am August 10, 2021 12:01am Start: 07-26-2021 End: 08-08-2021 take 5-10 mg by mouth every four hours as needed for pain Oxycodone 5 mg Tablet Discontinued 5 - 10 mg PO EVERY 4 HOURS NEEDED as needed for Pain Score 4-10 60 7 July 26, 2021 August 08, 2021 10:20am predniSONE 20 mg oral tablet (8 sources) Start: 08-31-2023 End: 10-02-2023 take 2 tablets by mouth once daily Prednisone 20 mg tablet Discontinued 40 mg PO DAILY August 31, 2023 1:00am October 02, 2023 4:02pm Start: 08-31-2023 End: 10-02-2023 take 40 mg by mouth once daily Prednisone Discontinued 40 MG PO DAILY August 31, 2023 1:00am October 02, 2023 4:02pm Start: 03-26-2023 End: 03-30-2023 take 2 tablets by mouth twice daily as needed, then take 1 tablet by mouth twice daily as needed, then take 0.5 tablet by mouth once daily as needed Prednisone 10 mg tablet Discontinued 20 mg PO TWICE A DAY as needed for eczema 30 March 26, 2023 12:00am March 29, 2023 12:00am March 30, 2023 12:04am 2 po bid 4D,1 po bid for 4 D, 1 po qd for 4D 1/2 po qd for2 D Start: 03-26-2023 End: 03-30-2023 Prednisone Discontinued 20 M G PO TWICE A DAY 30 March 26, 2023 12:00am March 30, 2023 12:04am 2 po bid 4D,1 po bid for 4 D, 1 po qd for 4D 1/2 po qd for2 D 24 hr tolterodine tartrate 4 mg extended release oral capsule (11 sources) Cholinergic Muscarinic Antagonist Start: 11-06-2018 End: 06-26-2019 take 1 capsule by mouth once daily Tolterodine 4 mg capsule,extended release 24hr Discontinued 4 mg PO DAILY November 06, 2018 1:00am June 26, 2019 5:04pm zolpidem tartrate 10 mg oral tablet (20 sources) gamma-Aminobutyri c Acid-ergic Agonist Start: 11-04-2019 End: 02-19-2020 take 1 tablet by mouth at bedtime as needed Zolpidem 10 MG tablet Discontinued 10 mg PO AT BEDTIME as needed for INSOMINA January 23, 2020 4:34pm February 19, 2020 9:51am Start: 11-06-2018 End: 08-15-2019 take 1 tablet by mouth at bedtime as needed Zolpidem 10 mg tablet Discontinued 10 mg PO AT BEDTIME as needed for insomnia November 06, 2018 1:00am August 15, 2019 5:06pm zonisamide 100 mg oral capsule (11 sources) Anti-epileptic Agent Start: 01-29-2020 End: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 [facility] RBC Auto (Bld) [#/Vol]Ordere d By: Maribel Clarke on 02-12-2025 RBC (Bld) [#/Vol] 4.69 10*6/uL 4.2-5.4 [facility] Screening total cholesterol/ high density lipoprotein (HDL) cholesterol ratioOrdered By: Maribel Clarke on 02-12-2025 Cholesterol.total/Lavinia sterol in HDL [Mass ratio] 4.86 {ratio} [facility] Serum creatinine measurement (mass/volume)Ordered By: Maribel Clarke on 02-12-2025 Creatinine [Mass/Vol] 0.75 mg/dL 0.70-1.20 [facility] Serum globulin measurementOr dered By: Maribel Clarke on 02-12-2025 Globulin (S) [Mass/Vol] 3.2 g/dL 2.2-4.2 [facility] Serum glucose measurement (m ass/volume)Ordered By: Maribel Clarke on 02-12-2025 Glucose [Mass/Vol] 104 mg/dL High 70-99 [facility] Serum or plasma alanine mayorga otransferase (ALT) measurementOrdered By: Maribel Clarke on 02-12-2025 ALT [Catalytic activity/Vol] 27 U/L <35 [facility] Serum or plasma albumin tesha urement (mass/volume)Ordered By: Maribel Clarke on 02-12-2025 Albumin [Mass/Vol] 4.4 g/dL 3.4-4.8 [facility] Serum or plasma albumin/glob ulin mass ratioOrdered By: Maribel Clarke on 02-12-2025 Albumin/Globulin [Mass ratio] 1.4 {ratio} 0.9-2.4 [facility] Serum or plasma alkaline javier sphatase measurementOrdered By: Maribel Clarke on 02-12-2025 ALP [Catalytic activity/Vol] 64 U/L 35-104 [facility] Serum or plasma calcium tesha urement (mass/volume)Ordered By: Maribel Clarke on 02-12-2025 Calcium [Mass/Vol] 9.6 mg/dL 7.6-11.0 [facility] Serum or plasma cholesterol in HDL measurement (mass/volume)Ordered By: Maribel Clarke on 02-12-2025 Cholesterol in HDL [Mass/Vol] 42 mg/dL >40 [facility] Comment on above: National Cholesterol Education Program (NCEP) guidelines:<40 mg/dL: Low HDL-cholesterol (major risk factor for CHD)>= 60 mg/dL: High HDL-cholesterol (negative risk factor for CHD)HDL-cholesterol is affected by a number of factors, e.g. smoking, exercise, hormones, sex and age. Serum or plasma cholesterol measurement (mass/volume)Ordered By: Maribel Clarke on 02-12-2025 Cholesterol [Mass/Vol] 206 mg/dL High <201 [facility] Comment on above: Cholesterol level, D esirable <200 mg/dLBorderline high cholesterol 200-239 mg/dLHigh cholesterol >=240 mg/dLRecommendations of the NCEP Adult Treatment Panel for the following risk-cutoff thresholds for the [place] population. Serum or plasma urea nitroge n measurement (mass/volume)Ordered By: Maribel Clarke on 02-12-2025 Urea nitrogen [Mass/Vol] 17 mg/dL 4-19 [facility] Sodium levelOrdered By: Maribel Clarke on 02-12-2025 Sodium [Moles/Vol] 139 mmol/L 133-145 [facility] TSH DL <= 0.005 mIU/L QnOrde red By: Maribel Clarke on 02-12-2025 TSH Qn 4.390 uIU/mL High 0.300-4.200 [facility] Thyroid Stim Hormone (TSH)on 02-12-2025 TSH 4.390 uIU/mL High 0.300-4.200 [facility] Comment on above: Performed By: #### L 501.9520, L500.4100, L501.2450, L501.9985, L500.4050, L100.0100 ####[facility] [address] [place], [address] Total proteinOrdered By: Joaquin Clarke on 02-12-2025 Protein [Mass/Vol] 7.6 g/dL 5.9-8.4 [facility] Triglycerides measurementOrd ered By: Maribel Clarke on 02-12-2025 Triglyceride [Mass/Vol] 253 mg/dL High <199 [facility] Comment on above: The drugs N-Acetylcy steine and Metamizole may falsely depress this assay. Normal range: <150 mg/dLBorderline High: 150-199 mg/dLHigh: 200-499 mg/dLVery High: >500 mg/dL White blood cell (WBC) count Ordered By: Maribel Clarke on 02-12-2025 WBC (Bld) [#/Vol] 7.4 10*3/uL 4.4-11.0 [facility] SCRN MAMM (CAD)W/ELIAZAR BILATo n 11-03-2024 SCRN MAMM (CAD)W/ELIAZAR BILAT [facility] Imaging Services [address] [place] [id number] SCRN MAMM (CAD)W/ELIAZAR BILAT MR#: [id number] Acct: [id number] Name: DANIEL WHITE Rep #: [id number] : 1960 F 64 From: Lauri rodriguez MD PCP: DESTINY Powers Status: [facility] Study: SCRN MAMM (CAD)W/ELIAZAR BILAT Date of Exam: 10/16 Exam# [id number] Ordering Dr: Maribel Clarke NP N P-C [id number] MAMMOGRAPHY - BILATERAL SCREENING REASON FOR EXAM: Female, 64 years old. Routine annual screening examination. PERTINENT HISTORY: Sister with breast cancer. TECHNIQUE: Digital bilateral breast eliazar (3D mammographic acquisition) in the CC and MLO projections. 2-D mediolateral oblique (MLO) and craniocaudad (CC) views of both breasts were obtained. CAD: Full Field Digital Mammography with Computer Added Detection was performed. COMPARISON: Comparison is made with prior study dated August 24, 2022. FINDINGS: Breast Composition: The breasts are heterogeneously dense, which may obscure small masses. There are no dominant masses or suspicious calcifications. Stable bilateral fat containing axillary lymph nodes. No other significant abnormalities are identified. There has been no significant change since the prior study. BI/SCRN MAMM (CAD)W/ELIAZAR BILAT IMPRESSION: Stable bilateral screening mammogram. Yearly follow-up mammogram recommended. (A) ASSESSMENT CATEGORY: BIRADS Category 2: Benign. A letter regarding these results will be sent to the patient by the facility within 30 days. Approximately 10% of breast cancers are not detected by mammography. A normal mammogram should not delay biopsy of a clinically suspicious abnormality. [id number] Electronically Signed: Lauri Coulter MD at 13:58 EST Reading Location ID and State: [facility] / [place] , Service support , CC: DESTINY Clarke Decorator Consultant: Signed Normal [facility] Lipid Profileon 10-23-2024 Cholesterol [Mass/Vol] 193 mg/dL Normal 200 [facility] Comment on above: Result Comment: <200 mg/dL Desirable 200-240 mg/dL Borderline >240 mg/dL High Risk Performed By: #### L 500.9810, L501.9520 ####[facility] [address] [place], [place], [address] Cholesterol in HDL [Mass/Vol] 50 mg/dL Normal [facility] Comment on above: Result Comment: The drugs N-Acetylcysteine and Metamizole may falsely depress this assay. Reference Range HDL <40 mg/dL Low HDL Cholesterol HDL >or= 60 mg/dL High HDL Cholesterol Performed By: #### L 500.4100, L501.9520 ####[facility] [address] [place], [address] Cholesterol in LDL [Mass/Vol] 95 mg/dL Normal 0-130 [facility] Comment on above: Performed By: #### L 500.4100, L501.9520 ####[facility] [address] [place], [address] Cholesterol in VLDL [Mass/Vol] 48 mg/dL High 5-40 [facility] Comment on above: Performed By: #### L 500.4100, L501.9520 ####[facility] [address] [place], [address] Triglyceride [Mass/Vol] 238 mg/dL High [facility] Comment on above: Result Comment: The drugs N-Acetylcysteine and Metamizole may falsely depress this assay. Serum Triglycerides Reference Interval Normal <150 mg/dL Borderline high 150 - 199 mg/dL High 200 - 499 mg/dL Very High > or = 500 mg/dL Performed By: #### L 500.4100, L501.9520 ####[facility] [address] [place], [address] Thyroid Stim Hormone (TSH)on 10-23-2024 TSH 0.041 uIU/mL Low 0.358-3.740 [facility] Comment on above: Performed By: #### L 500.4100, L501.9520 ####[facility] [address] [place], [address] Thyroid Stim Hormone (TSH)on 10-03-2024 TSH 0.053 uIU/mL Low 0.358-3.740 [facility] Comment on above: Performed By: #### L 501.9520 #### [facility] [address] [place], [address] Bilirubin, Directon 08-18-20 Bilirubin.direct [Mass/Vol] 0.17 mg/dL Normal 0.00-0.30 [facility] Comment on above: Performed By: #### L 501.4700, L500.4050, L501.9520, L500.4100, L100.0100 #### [facility] [address] [place], [address] CBC W/Diff, Automatedon 11-0 4-2024 Absolute Lymph 3.46 X10 3/uL Normal 0.83-4.51 [facility] Comment on above: Performed By: #### L 501.4700, L500.4050, L501.9520, L500.4100, L100.0100 #### [facility] [address] [place], [address] Absolute Neut 3.3 X10 3/uL Normal 2.0-7.7 [facility] Comment on above: Performed By: #### L 501.4700, L500.4050, L501.9520, L500.4100, L100.0100 #### [facility] [address] [place], [address] Basophils/100 WBC (Bld) 0.7 % Normal 0-1 [facility] Comment on above: Performed By: #### L 501.4700, L500.4050, L501.9520, L500.4100, L100.0100 #### [facility] [address] [place], [address] Eosinophils/100 WBC (Bld) 3.0 % Normal 0-5 [facility] Comment on above: Performed By: #### L 501.4700, L500.4050, L501.9520, L500.4100, L100.0100 #### [facility] [address] [place], [address] Erythrocyte distribution width (RBC) [Ratio] 13.7 % Normal 11.6-14.6 [facility] Comment on above: Performed By: #### L 501.4700, L500.4050, L501.9520, L500.4100, L100.0100 #### [facility] [address] [place], [address] Hematocrit (Bld) [Volume fraction] 40.2 % Normal 37-47 [facility] Comment on above: Performed By: #### L 501.4700, L500.4050, L501.9520, L500.4100, L100.0100 #### [facility] [address] [place], [address] Hemoglobin (Bld) [Mass/Vol] 13.2 g/dL Normal 12.0-15.0 [facility] Comment on above: Performed By: #### L 501.4700, L500.4050, L501.9520, L500.4100, L100.0100 #### [facility] [address] [place], [address] IG% 0.400 Normal 0.0-0.9 [facility] Comment on above: Result Comment: IG% - Immature Granulocytes (promyelocytes, myelocytes and metamyelocytes) > 1% indicates that a LEFT SHIFT is Present. Performed By: #### L 501.4700, L500.4050, L501.9520, L500.4100, L100.0100 #### [facility] [address] [place], [address] Lymphocytes/100 WBC (Bld) 47.0 % High 19-41 [facility] Comment on above: Performed By: #### L 501.4700, L500.4050, L501.9520, L500.4100, L100.0100 #### [facility] [address] [place], [address] MCH (RBC) [Entitic mass] 28.3 pg Normal 27.0-32.0 [facility] Comment on above: Performed By: #### L 501.4700, L500.4050, L501.9520, L500.4100, L100.0100 #### [facility] [address] [place], [address] MCHC (RBC) [Mass/Vol] 32.8 g/dL Normal 32-36 [facility] Comment on above: Performed By: #### L 501.4700, L500.4050, L501.9520, L500.4100, L100.0100 #### [facility] [address] [place], [address] MCV (RBC) [Entitic vol] 86.1 fL Normal 81-99 [facility] Comment on above: Performed By: #### L 501.4700, L500.4050, L501.9520, L500.4100, L100.0100 #### [facility] [address] [place], [address] Monocytes/100 WBC (Bld) 4.2 % Normal 0-10 [facility] Comment on above: Performed By: #### L 501.4700, L500.4050, L501.9520, L500.4100, L100.0100 #### [facility] [address] [place], [address] Neutrophils/100 WBC (Bld) 44.7 % Low 47-70 [facility] Comment on above: Performed By: #### L 501.4700, L500.4050, L501.9520, L500.4100, L100.0100 #### [facility] [address] [place], [address] Nucleated RBC (Bld) [#/Vol] 0 10*3/uL Normal 0-5 [facility] Comment on above: Performed By: #### L 501.4700, L500.4050, L501.9520, L500.4100, L100.0100 #### [facility] [address] [place], [address] Platelet mean volume (Bld) [Entitic vol] 9.0 fL Normal 6.2-12.0 [facility] Comment on above: Performed By: #### L 501.4700, L500.4050, L501.9520, L500.4100, L100.0100 #### [facility] [address] [place], [address] Platelets (Bld) [#/Vol] 423 10*3/uL Normal 150-450 [facility] Comment on above: Performed By: #### L 501.4700, L500.4050, L501.9520, L500.4100, L100.0100 #### [facility] [address] [place], [address] RBC (Bld) [#/Vol] 4.67 10*6/uL Normal 4.2-5.4 [facility] Comment on above: Performed By: #### L 501.4700, L500.4050, L501.9520, L500.4100, L100.0100 #### [facility] [address] [place], [address] RDW SD 42.9 fl Normal 35.1-43.9 [facility] Comment on above: Performed By: #### L 501.4700, L500.4050, L501.9520, L500.4100, L100.0100 #### [facility] [address] [place], [address] WBC (Bld) [#/Vol] 7.4 10*3/uL Normal 4.4-11.0 [facility] Comment on above: Performed By: #### L 501.4700, L500.4050, L501.9520, L500.4100, L100.0100 #### [facility] [address] [place], [address] Comprehensive Metabolic Prof ilon 08-18-2024 Albumin [Mass/Vol] 4.0 g/dL Normal 3.2-5.0 [facility] Comment on above: Performed By: #### L 501.4700, L500.4050, L501.9520, L500.4100, L100.0100 #### [facility] [address] [place], [address] Albumin/Globulin [Mass ratio] 1.2 {ratio} Normal 0.9-2.4 [facility] Comment on above: Performed By: #### L 501.4700, L500.4050, L501.9520, L500.4100, L100.0100 #### [facility] [address] [place], [address] ALK P 53 U/L Normal 45-117 [facility] Comment on above: Performed By: #### L 501.4700, L500.4050, L501.9520, L500.4100, L100.0100 #### [facility] [address] [place], [address] ALT [Catalytic activity/Vol] 31 U/L Normal 13-56 [facility] Comment on above: Performed By: #### L 501.4700, L500.4050, L501.9520, L500.4100, L100.0100 #### [facility] [address] [place], [address] AST [Catalytic activity/Vol] 29 U/L Normal 15-37 [facility] Comment on above: Performed By: #### L 501.4700, L500.4050, L501.9520, L500.4100, L100.0100 #### [facility] [address] [place], [address] Bilirubin [Mass/Vol] 0.50 mg/dL Normal 0.20-1.00 [facility] Comment on above: Result Comment: For patients on eltrombopag therapy, use of Dimension [place] TBIL is not recommended. Performed By: #### L 501.4700, L500.4050, L501.9520, L500.4100, L100.0100 #### [facility] [address] [place], [address] BUN/CRE 16.4 RATIO Normal 10-20 [facility] Comment on above: Performed By: #### L 501.4700, L500.4050, L501.9520, L500.4100, L100.0100 #### [facility] [address] [place], [address] CA,Total 9.3 mg/dL Normal 8.5-10.1 [facility] Comment on above: Performed By: #### L 501.4700, L500.4050, L501.9520, L500.4100, L100.0100 #### [facility] [address] [place], [address] Chloride [Moles/Vol] 104 mmol/L Normal 98-107 [facility] Comment on above: Performed By: #### L 501.4700, L500.4050, L501.9520, L500.4100, L100.0100 #### [facility] [address] [place], [address] CO2 [Moles/Vol] 26.0 mmol/L Normal 21.0-32.0 [facility] Comment on above: Performed By: #### L 501.4700, L500.4050, L501.9520, L500.4100, L100.0100 #### [facility] [address] [place], [address] Creatinine [Mass/Vol] 0.73 mg/dL Normal 0.55-1.02 [facility] Comment on above: Result Comment: The validity of the calculated GFR GFRAA in patients over 70 years has not been determined. Clinical correlation is essential. Performed By: #### L 501.4700, L500.4050, L501.9520, L500.4100, L100.0100 #### [facility] [address] [place], [address] EST GFR - AA 103 mL/min Normal >60 [facility] Comment on above: Result Comment: Afri can [place] GFR Calc Performed By: #### L 501.4700, L500.4050, L501.9520, L500.4100, L100.0100 #### [facility] [address] [place], [address] GAP 7 Normal 5-15 [facility] Comment on above: Performed By: #### L 501.4700, L500.4050, L501.9520, L500.4100, L100.0100 #### [facility] [address] [place], [address] GFR/1.73 sq M.predicted among non-blacks MDRD (S/P/Bld) [Vol rate/Area] 85 mL/min/{1.73_m2} Normal >60 [facility] Comment on above: Result Comment: Non- GFR Calc Performed By: #### L 501.4700, L500.4050, L501.9520, L500.4100, L100.0100 #### [facility] [address] [place], [address] Globulin (S) [Mass/Vol] 3.4 g/dL Normal 2.2-4.2 [facility] Comment on above: Performed By: #### L 501.4700, L500.4050, L501.9520, L500.4100, L100.0100 #### [facility] [address] [place], [address] Glucose [Mass/Vol] 97 mg/dL Normal 74-106 [facility] Comment on above: Performed By: #### L 501.4700, L500.4050, L501.9520, L500.4100, L100.0100 #### [facility] [address] [place], [address] Potassium [Moles/Vol] 3.6 mmol/L Normal 3.5-5.1 [facility] Comment on above: Performed By: #### L 501.4700, L500.4050, L501.9520, L500.4100, L100.0100 #### [facility] [address] [place], [address] Sodium [Moles/Vol] 137 mmol/L Normal 136-145 [facility] Comment on above: Performed By: #### L 501.4700, L500.4050, L501.9520, L500.4100, L100.0100 #### [facility] [address] [place], [address] T PROT 7.4 g/dL Normal 6.4-8.2 [facility] Comment on above: Performed By: #### L 501.4700, L500.4050, L501.9520, L500.4100, L100.0100 #### [facility] [address] [place], [address] Urea nitrogen [Mass/Vol] 12 mg/dL Normal 7-18 [facility] Comment on above: Performed By: #### L 501.4700, L500.4050, L501.9520, L500.4100, L100.0100 #### [facility] [address] [place], [address] Lipid Profileon 08-18-2024 Cholesterol [Mass/Vol] 250 mg/dL High 200 [facility] Comment on above: Result Comment: <200 mg/dL Desirable 200-240 mg/dL Borderline >240 mg/dL High Risk Performed By: #### L 501.4700, L500.4050, L501.9520, L500.4100, L100.0100 #### [facility] [address] [place], [address] Cholesterol in HDL [Mass/Vol] 49 mg/dL Normal [facility] Comment on above: Result Comment: The drugs N-Acetylcysteine and Metamizole may falsely depress this assay. Reference Range HDL <40 mg/dL Low HDL Cholesterol HDL >or= 60 mg/dL High HDL Cholesterol Performed By: #### L 501.4700, L500.4050, L501.9520, L500.4100, L100.0100 #### [facility] [address] [place], [address] Cholesterol in LDL [Mass/Vol] 153 mg/dL High 0-130 [facility] Comment on above: Performed By: #### L 501.4700, L500.4050, L501.9520, L500.4100, L100.0100 #### [facility] [address] [place], [address] Cholesterol in VLDL [Mass/Vol] 48 mg/dL High 5-40 [facility] Comment on above: Performed By: #### L 501.4700, L500.4050, L501.9520, L500.4100, L100.0100 #### [facility] [address] [place], [address] Triglyceride [Mass/Vol] 242 mg/dL High [facility] Comment on above: Result Comment: The drugs N-Acetylcysteine and Metamizole may falsely depress this assay. Serum Triglycerides Reference Interval Normal <150 mg/dL Borderline high 150 - 199 mg/dL High 200 - 499 mg/dL Very High > or = 500 mg/dL Performed By: #### L 501.4700, L500.4050, L501.9520, L500.4100, L100.0100 #### [facility] [address] [place], [address] Thyroid Stim Hormone (TSH)on 08-18-2024 TSH 5.080 uIU/mL High 0.358-3.740 [facility] Comment on above: Performed By: #### L 501.4700, L500.4050, L501.9520, L500.4100, L100.0100 #### [facility] [address] [place], [address] Pulmonary Visit Reporton Pulmonary Visit Report [facility] [address] [place] [address] OFFICE VISIT Date of Service: 06/24/24 MR#: [id number] Acct: [id number] Name: DANIEL WHIET Rep #: [id number] : 1960 Provider: DESTINY Collier Age/Sex: 63/F [place] [facility] [place] Status: Signed Assessment and Plan Assessment and Plan (1) LASHELL (obstructive sleep apnea): Status: Chronic Comment: Overall AHI 64.6, On BiPAP 8/4 centimeters of water Plan: She is using and benefiting from Pap therapy. No indication for titration study at this time. Contact the office for any new or worsening symptoms in the meantime. Follow-up in 1 year. Plan Details Follow Up: 1 Year ([facility]) HPI 1 Y FU Chief Complaint: Annual follow-up HPI Comments Details: This patient presents to the office today for routine follow-up of her obstructive sleep apnea. She is ambulatory and currently on room air. She has not recently been seen in the ED or urgent care for any respiratory illness. She has not required any antibiotics or prednisone for any breathing problems. She denies any difficulty with shortness of breath. She denies any cough, sputum production or hemoptysis. She denies any wheezing, chest tightness, chest pain or palpitations. She wakes up feeling rested refreshed with use of her Pap device. She states that she wears the device every night. She has to PAP machines, 1 at home and a portable unit that she uses when she stays at the [facility]. Between the 2 machines she reports 100% compliance. She denies any difficulty with dry mouth or mask leaks. She is not experiencing morning headaches. She is not requiring naps and is not nodding off to sleep unintentionally. Compliance report for the past 30 days shows 67% compliance on this machine with average use of 8 hours and 49 minutes. Current setting is BiPAP 8/4 cmH2O with residual AHI 2.9 events per hour. Leaks do not appear to be problematic. Intake Vital Signs 01/07/24 15:25 04/15/24 09:33 06/24/24 07:46 Height 4 ft 10 in 4 ft 10 in 4 ft 10 in Weight: 149 lb 142 lb BMI 31.1 29.7 BP 114/80 132/87 H Blood Pressure Location Lt brachial Rt brachial Position Sitting Sitting Respiration 16 Pulse 98 97 Pulse Source NIBP Monitor Temp 97.3 F L Temperature Source Temporal Artery Pulse Oximetry (%) 94 Oxygen Delivery Method room air Intake Visit Reasons: 1 Y FU Chief Complaint: Monoclonal Antibody Infusion Quality Measurement Specialist Required: No DME Vendor: No DME Accompanied by: Self Allergies adhesive tape Allergy (Verified 06/24/24 10:51) blisters animal dander Allergy (Verified 06/24/24 10:51) Other cefdinir Allergy (Verified 06/24/24 10:51) RASH Environmental Allergies: Uncoded Allergy (Verified 06/24/24 10:51) NEEDS FOLLOW-UP Food Allergies: Uncoded Allergy (Verified 06/24/24 10:51) Shortness of breath Penicillins Allergy (Verified 06/24/24 10:51) Hives Sulfa (Sulfonamide Antibiotics) Allergy (Verified 06/24/24 10:51) Hives tetracycline (Tetracycline) Allergy (Verified 06/24/24 10:51) Hives Medications ???Medication ???Instructions ???Recorded ???Confirmed ???Type cetirizine 10 mg capsule (Zyrtec) 10 mg PO DAILY PRN allergies 07/12/21 06/24/24 History albuterol sulfate 90 mcg/actuation 2 puff inhalation Q4H PRN sob 3 07/10/23 06/24/24 Rx aerosol inhaler (Ventolin HFA) months #18 grams atorvastatin 40 mg tablet 40 mg PO DAILY #90 tabs 07/10/23 06/24/24 Rx duloxetine 60 mg capsule,delayed 60 mg PO QHS #90 caps 07/10/23 06/24/24 Rx release fesoterodine 8 mg tablet,extended 8 mg PO DAILY BLADDER #90 tabs 07/10/23 06/24/24 Rx release 24 hr (Toviaz) hydrochlorothiazide 12.5 mg capsule 12.5 mg PO DAILY #90 caps 07/10/23 06/24/24 Rx lisinopril 10 mg tablet 10 mg PO DAILY #90 tabs 07/10/23 06/24/24 Rx B complex 11-folic acid 1 mg-C 100 1 tab PO DAILY 08/16/23 06/24/24 History mg-biotin 300 mcg-zinc 50 mg tablet cholecalciferol (vitamin D3) 50 50 mcg PO DAILY 08/16/23 06/24/24 History mcg (2,000 unit) capsule (D3-2000) multivitamin 1 tab PO DAILY 08/16/23 06/24/24 History levothyroxine 100 mcg tablet 100 mcg PO QDAY #90 tabs 01/10/24 06/24/24 Rx fenofibrate nanocrystallized 145 145 mg PO QHS #90 tabs 04/15/24 06/24/24 Rx mg tablet vitamin E (dl, acetate) 180 mg 180 mg PO DAILY 04/15/24 06/24/24 History (400 unit) capsule Have you fallen in the past year?: No [facility] History Thyroid disease Fatty liver High cholesterol Seasonal allergies Heartburn PONV (postoperative nausea and vomiting) Sleep apnea History of echocardiogram History of stress test Cardiology follow-up encounter History of irregular heartbeat GERD (gastroesophageal reflux (more content not included)... Normal [facility] Cardiology Visit Reporton Cardiology Visit Report [facility] [address] [place], [place] [address] OFFICE VISIT Date of Service: 04/15/24 MR#: [id number] Acct: [id number] Name: CINDYDANIEL BRASHER Rep #: [id number] : 1960 Provider: DESTINY esqueda Age/Sex: 63/F [place] [facility] [place] [facility] History of Present Illness Details: Ms. White is an 63-year-old lady with no previous cardiac history who presented to see us for evaluation of her tachycardia. She does have a history of hypertension, hyperlipidemia, factor V Leiden, hypothyroidism, and gastroesophageal reflux disease. She was evaluated and underwent a stress test which demonstrated no evidence of ischemia at a moderate workload as well as an echocardiogram which demonstrated preserved ejection fraction of 60%. She also had a lipid profile performed demonstrating a total cholesterol 165, LDL of 82 and HDL of 50. She has been put on blood pressure medication and says that her heart rate has improved significantly, which she monitors this with her apple watch. She did undergo stress testing where she exercised to stage II of the Jermaine protocol with a maximum heart rate which was 113% of the maximum predicted heart rate. She denies chest, arm, jaw, or neck discomfort. She denies palpitations. She denies bilateral lower extremity edema. She denies claudication. She denies shortness of breath with activity, shortness of breath at rest, orthopnea, or PND. She denies chronic cough. She denies significant, sudden weight gain. She acknowledges occasional lightheadedness when standing too quickly. She denies dizziness, near-syncope, or syncope. She denies blood in urine, blood in stool, or epistaxis. He denies fever with chills. She denies myalgia. She denies fatigue. Her exercise level has remained stable. Intake Vital Signs 01/07/24 15:25 04/15/24 09:33 Height 4 ft 10 in 4 ft 10 in Weight: 149 lb BMI 31.1 BP 114/80 Blood Pressure Location Lt brachial Position Sitting Respiration 16 Pulse 98 Pulse Source NIBP Intake Visit Reasons: 6 M FU Quality Measurement Specialist Required: No Is patient in pain?: No Allergies adhesive tape Allergy (Verified 04/15/24 09:36) blisters animal dander Allergy (Verified 04/15/24 09:36) Other cefdinir Allergy (Verified 04/15/24 09:36) RASH Environmental Allergies: Uncoded Allergy (Verified 04/15/24 09:36) NEEDS FOLLOW-UP Food Allergies: Uncoded Allergy (Verified 04/15/24 09:36) Shortness of breath Penicillins Allergy (Verified 04/15/24 09:36) Hives Sulfa (Sulfonamide Antibiotics) Allergy (Verified 04/15/24 09:36) Hives tetracycline (Tetracycline) Allergy (Verified 04/15/24 09:36) Hives Medications ???Medication ???Instructions ???Recorded ???Confirmed ???Type cetirizine 10 mg capsule (Zyrtec) 10 mg PO DAILY PRN allergies 07/12/21 04/15/24 History albuterol sulfate 90 mcg/actuation 2 puff inhalation Q4H PRN sob 3 07/10/23 04/15/24 Rx aerosol inhaler (Ventolin HFA) months #18 grams atorvastatin 40 mg tablet 40 mg PO DAILY #90 tabs 07/10/23 04/15/24 Rx duloxetine 60 mg capsule,delayed 60 mg PO QHS #90 caps 07/10/23 04/15/24 Rx release fesoterodine 8 mg tablet,extended 8 mg PO DAILY BLADDER #90 tabs 07/10/23 04/15/24 Rx release 24 hr (Toviaz) hydrochlorothiazide 12.5 mg capsule 12.5 mg PO DAILY #90 caps 07/10/23 04/15/24 Rx lisinopril 10 mg tablet 10 mg PO DAILY #90 tabs 07/10/23 04/15/24 Rx B complex 11-folic acid 1 mg-C 100 1 tab PO DAILY 08/16/23 04/15/24 History mg-biotin 300 mcg-zinc 50 mg tablet cholecalciferol (vitamin D3) 50 50 mcg PO DAILY 08/16/23 04/15/24 History mcg (2,000 unit) capsule (D3-2000) multivitamin 1 tab PO DAILY 08/16/23 04/15/24 History levothyroxine 100 mcg tablet 100 mcg PO QDAY #90 tabs 01/10/24 04/15/24 Rx vitamin E (dl, acetate) 180 mg 180 mg PO DAILY 04/15/24 04/15/24 History (400 unit) capsule Ejection fraction %: 60 Have you fallen in the past year?: No PFSH Medical History Thyroid disease Fatty liver High cholesterol Seasonal allergies Heartburn PONV (postoperative nausea and vomiting) Sleep apnea History of echocardiogram History of stress test Cardiology follow-up encounter History of irregular heartbeat GERD (gastroesophageal reflux disease) Essential hypertension COVID-19 (10/18/21) Wears glasses Alcohol use Migraine headache Injury of head and neck Non-smoker BiPAP (biphasic positive airway pressure) dependence Asthma History of pain when walking Depression Seasonal affective disorder Back pain Knee pain Hay fever Fatigue Hydronephrosis Left ureteral calculus Bilateral carotid bruits Factor 5 Leiden mutation, heterozygous Insomnia disorder Stress incontinence in female Fibromyalgia Goit (more content not included)... Normal [facility] Hemoglobin A1con 04-15-2024 HbA1c (Bld) [Mass fraction] 5.8 % High 3.8-5.6 [facility] Comment on above: Result Comment: Norm al < 5.7 % Prediabetic 5.7 - 6.4 % Diabetic >or= 6.5 % Please note range changes. Performed By: #### L 500.4100, L501.9520, L501.9985, L500.3400 ####[facility] [address] [place], [address] Lipid Profileon 04-15-2024 Cholesterol [Mass/Vol] 223 mg/dL High 200 [facility] Comment on above: Result Comment: <200 mg/dL Desirable 200-240 mg/dL Borderline >240 mg/dL High Risk Performed By: #### L 500.4100, L501.9520, L501.9985, L500.3400 ####[facility] [address] [place], [address] Cholesterol in HDL [Mass/Vol] 45 mg/dL Normal [facility] Comment on above: Result Comment: The drugs N-Acetylcysteine and Metamizole may falsely depress this assay. Reference Range HDL <40 mg/dL Low HDL Cholesterol HDL >or= 60 mg/dL High HDL Cholesterol Performed By: #### L 500.4100, L501.9520, L501.9985, L500.3400 ####[facility] [address] [place], [address] LDL TNP Normal 0-130 [facility] Comment on above: Performed By: #### L 500.4100, L501.9520, L501.9985, L500.3400 ####[facility] [address] [place], [address] Triglyceride [Mass/Vol] 569 mg/dL High [facility] Comment on above: Result Comment: The drugs N-Acetylcysteine and Metamizole may falsely depress this assay. TRIGLYCERIDE IS GREATER THAN 400 mg/dL. LDL RESULT IS INVALID AND WILL NOT BE REPORTED. Serum Triglycerides Reference Interval Normal <150 mg/dL Borderline high 150 - 199 mg/dL High 200 - 499 mg/dL Very High > or = 500 mg/dL Performed By: #### L 500.4100, L501.9520, L501.9985, L500.3400 ####[facility] [address] [place], [address] VLDL TNP Normal 5-40 [facility] Comment on above: Performed By: #### L 500.4100, L501.9520, L501.9985, L500.3400 ####[facility] [address] [place], [address] Liver Profileon 04-15-2024 Albumin [Mass/Vol] 3.9 g/dL Normal 3.2-5.0 [facility] Comment on above: Performed By: #### L 500.4100, L501.9520, L501.9985, L500.3400 ####[facility] [address] [place], [address] ALK P 101 U/L Normal 45-117 [facility] Comment on above: Performed By: #### L 500.4100, L501.9520, L501.9985, L500.3400 ####[facility] [address] [place], [address] ALT [Catalytic activity/Vol] 37 U/L Normal 13-56 [facility] Comment on above: Performed By: #### L 500.4100, L501.9520, L501.9985, L500.3400 ####[facility] [address] [place], [address] AST [Catalytic activity/Vol] 18 U/L Normal 15-37 [facility] Comment on above: Performed By: #### L 500.4100, L501.9520, L501.9985, L500.3400 ####[facility] [address] [place], [address] Bilirubin [Mass/Vol] 0.30 mg/dL Normal 0.20-1.00 [facility] Comment on above: Result Comment: For patients on eltrombopag therapy, use of Dimension [place] TBIL is not recommended. Performed By: #### L 500.4100, L501.9520, L501.9985, L500.3400 ####[facility] [address] [place], [address] Bilirubin.direct [Mass/Vol] 0.09 mg/dL Normal 0.00-0.30 [facility] Comment on above: Performed By: #### L 500.4100, L501.9520, L501.9985, L500.3400 ####[facility] [address] [place], [address] Globulin (S) [Mass/Vol] 3.7 g/dL Normal 2.2-4.2 [facility] Comment on above: Performed By: #### L 500.4100, L501.9520, L501.9985, L500.3400 ####[facility] [address] [place], [address] T PROT 7.6 g/dL Normal 6.4-8.2 [facility] Comment on above: Performed By: #### L 500.4100, L501.9520, L501.9985, L500.3400 ####[facility] [address] [place], [address] Thyroid Stim Hormone (TSH)on 04-15-2024 TSH 1.20 uIU/mL Normal 0.358-3.74 [facility] Comment on above: Performed By: #### L 500.4100, L501.9520, L501.9985, L500.3400 ####[facility] [address] [facility] [place], [address] Basophil percentageOrdered B y: Maribel Clarke on 01-07-2024 Bilirubin [Mass/Vol] 0.30 mg/dL 0.20-1.00 [facility] Comment on above: For patients on eltr ombopag therapy, use of Dimension [place] TBIL is not recommended. Chloride [Moles/Vol] 108 mmol/L 98-107 [facility] Glucose [Mass/Vol] 122 mg/dL 74-106 [facility] Comment on above: Fasting Glucose resu lt from 100 to 125 mg/dL suggests IMPAIRED HOMEOSTASIS per A.D.A. criteria. Potassium [Moles/Vol] 3.5 mmol/L 3.5-5.1 [facility] Protein [Mass/Vol] 7.0 g/dL 6.4-8.2 [facility] Sodium [Moles/Vol] 139 mmol/L 136-145 [facility] - Chemistry and C hemistry - challengeOrdered By: Maribel Clarke on 01-07-2024 Albumin/Globulin [Mass ratio] 1.0 {ratio} 0.9-2.4 [facility] ALP [Catalytic activity/Vol] 93 U/L 45-117 [facility] ALT [Catalytic activity/Vol] 51 U/L 13-56 [facility] CO2 [Moles/Vol] 24.0 mmol/L 21.0-32.0 [facility] Globulin (S) [Mass/Vol] 3.5 g/dL 2.2-4.2 [facility] Urea nitrogen/Creatinine [Mass ratio] 17.0 mg/mg 10-20 [facility] No Panel InformationOrdered By: Maribel Clarke on 01-07-2024 Estimated GFR (MDRD) Amer 133 mL/min >60 [facility] Comment on above: GFR Calc Estimated GFR (MDRD) Non-Af Amer 110 mL/min >60 [facility] Comment on above: Non- GFR Calc Serum or plasma calcium tesha urement (mass/volume)Ordered By: Maribel Clarke on 01-07-2024 Calcium [Mass/Vol] 9.0 mg/dL 8.5-10.1 [facility] Serum or plasma creatinine m easurement (mass/volume)Ordered By: Maribel Clarke on 01-07-2024 Creatinine [Mass/Vol] 0.59 mg/dL 0.55-1.02 [facility] Comment on above: The validity of the calculated GFR & GFRAA in patients over 70 years has not been determined. Clinical correlation is essential. Serum or plasma thyroid stim ulating hormone (TSH) measurement (units/volume)Ordered By: Maribel Clarke on 01-07-2024 TSH Qn 0.06 uIU/mL 0.358-3.74 [facility] Serum or plasma urea nitroge n measurement (mass/volume)Ordered By: Maribel Clarke on 01-07-2024 Urea nitrogen [Mass/Vol] 10 mg/dL 7-18 [facility] Thin prep Papanicolaou smear with manual screeningOrdered By: Maribel Clarke on 01-07-2024 Thin prep Papanicolaou smear with manual screening 3.5 g/dL 3.2-5.0 [facility] Thin prep Papanicolaou smear with manual screening 45 U/L 15-37 [facility] Thin prep Papanicolaou smear with manual screening 7 5-15 [facility] No Panel InformationOrdered By: Dorian Florentino on 10-06-2023 Thyroid Stimulating Hormone (TSH) 0.02 uIU/mL 0.358-3.74 [facility] No Panel InformationOrdered By: Maribel Clarke on 07-10-2023 Parathyroid Hormone (Intact) 36.9 pg/mL 18.4-80.1 [facility] Thyroid Stimulating Hormone (TSH) 0.33 uIU/mL 0.358-3.74 [facility] Whole blood hemoglobin A1c/t otal hemoglobin ratio (mass fraction)Ordered By: Maribel Clarke on 07-10-2023 HbA1c (Bld) [Mass fraction] 6.0 % 3.8-5.6 [facility] Comment on above: Normal < 5.7 % Predi abetic 5.7 - 6.4 % Diabetic >or= 6.5 % Please note range changes. Absolute lymphocyte countOrd ered By: HEALTH ASSESSMENT on 06-28-2023 Lymphocytes Auto (Unsp spec) [#/Vol] 3.35 10*3/uL 0.83-4.51 [facility] Absolute reticulocyte countO rdered By: HEALTH ASSESSMENT on 06-28-2023 Reticulocytes (Bld) [#/Vol] 0.00 10*3/uL 0-5 [facility] Basophil percentageOrdered B y: HEALTH ASSESSMENT on 06-28-2023 Basophil percentage 3.2 mg/dL 2.5-4.9 [facility] Bilirubin [Mass/Vol] 0.60 mg/dL 0.20-1.00 [facility] Comment on above: For patients on eltr ombopag therapy, use of Dimension [place] TBIL is not recommended. Chloride [Moles/Vol] 102 mmol/L 98-107 [facility] Cholesterol [Mass/Vol] 213 mg/dL <200 [facility] Comment on above: <200 mg/dL Desirable 200-240 mg/dL Borderline >240 mg/dL High Risk Glucose [Mass/Vol] 108 mg/dL 74-106 [facility] Comment on above: Fasting Glucose resu lt from 100 to 125 mg/dL suggests IMPAIRED HOMEOSTASIS per A.D.A. criteria. LDH [Catalytic activity/Vol] 151 U/L 84-246 [facility] Neutrophils (Bld) [#/Vol] 5.7 10*3/uL 2.0-7.7 [facility] Potassium [Moles/Vol] 4.2 mmol/L 3.5-5.1 [facility] Protein [Mass/Vol] 7.5 g/dL 6.4-8.2 [facility] Sodium [Moles/Vol] 134 mmol/L 136-145 [facility] Triglyceride [Mass/Vol] 245 mg/dL <199 [facility] Comment on above: The drugs N-Acetylcy steine and Metamizole may falsely depress this assay.Serum Triglycerides Reference Interval Normal <150 mg/dL Borderline high 150 - 199 mg/dL High 200 - 499 mg/dL Very High > or = 500 mg/dL WBC (Bld) [#/Vol] 9.8 10*3/uL 4.4-11.0 [facility] Bilirubin Test strip Ql (U)O rdered By: HEALTH ASSESSMENT on 06-28-2023 Bilirubin Ql (U) Negative Negative [facility] Blood erythrocytes count (nu mber/volume)Ordered By: HEALTH ASSESSMENT on 06-28-2023 RBC (Bld) [#/Vol] 5.15 10*6/uL 4.2-5.4 [facility] Blood hemoglobin measurement (mass/volume)Ordered By: HEALTH ASSESSMENT on 06-28-2023 Hemoglobin (Bld) [Mass/Vol] 14.9 g/dL 12.0-15.0 [facility] Blood platelet mean volumeOr dered By: HEALTH ASSESSMENT on 06-28-2023 Platelet mean volume (Bld) [Entitic vol] 8.9 fL 6.2-12.0 [facility] Determination of erythrocyte mean corpuscular volume (MCV)Ordered By: HEALTH ASSESSMENT on 06-28-2023 MCV (RBC) [Entitic vol] 89.7 fL 81-99 [facility] Direct bilirubinOrdered By: HEALTH ASSESSMENT on 06-28-2023 Bilirubin.direct [Mass/Vol] 0.14 mg/dL 0.00-0.30 [facility] Hematocrit Auto (Bld) [Volum e fraction]Ordered By: HEALTH ASSESSMENT on 06-28-2023 Hematocrit (Bld) [Volume fraction] 46.2 % 37-47 [facility] Ketones Test strip Ql (U)Ord ered By: HEALTH ASSESSMENT on 06-28-2023 Ketones Ql (U) Negative Negative [facility] - Chemistry and C hemistry - challengeOrdered By: HEALTH ASSESSMENT on 06-28-2023 ALP [Catalytic activity/Vol] 89 U/L 45-117 [facility] ALT [Catalytic activity/Vol] 32 U/L 13-56 [facility] Cholesterol.total/Lavinia sterol in HDL [Mass ratio] 3.70 {ratio} [facility] CO2 [Moles/Vol] 28.0 mmol/L 21.0-32.0 [facility] Globulin (S) [Mass/Vol] 3.7 g/dL 2.2-4.2 [facility] Urea nitrogen/Creatinine [Mass ratio] 21.0 mg/mg 10-20 [facility] - Hematology and Cell countsOrdered By: HEALTH ASSESSMENT on 06-28-2023 Erythrocyte distribution width (RBC) [Entitic vol] 42.3 fL 35.1-43.9 [facility] Erythrocyte distribution width (RBC) [Ratio] 12.9 % 11.6-14.6 [facility] MCH (RBC) [Entitic mass] 28.9 pg 27.0-32.0 [facility] Nucleated RBC/100 WBC (Bld) [Ratio] 0 % 0-5 [facility] MCHC Auto (RBC) [Mass/Vol]Or dered By: HEALTH ASSESSMENT on 06-28-2023 MCHC (RBC) [Mass/Vol] 32.3 g/dL 32-36 [facility] Nitrite Test strip Ql (U)Ord ered By: HEALTH ASSESSMENT on 06-28-2023 Nitrite Ql (U) Positive Negative [facility] No Panel InformationOrdered By: HEALTH ASSESSMENT on 06-28-2023 Estimated GFR (MDRD) Amer 126 mL/min >60 [facility] Comment on above: GFR Calc Estimated GFR (MDRD) Non-Af Amer 104 mL/min >60 [facility] Comment on above: Non- GFR Calc Platelets bldOrdered By: Beatris [facility] ASSESSMENT on 06-28-2023 Platelets (Bld) [#/Vol] 340 10*3/uL 150-450 [facility] Protein Test strip Ql (U)Ord ered By: HEALTH ASSESSMENT on 06-28-2023 Protein Ql (U) Negative Negative [facility] Segmented neutrophils/100 WB C Auto (Bld)Ordered By: HEALTH ASSESSMENT on 06-28-2023 Segmented neutrophils/100 WBC (Bld) 57.9 % 47-70 [facility] Serum or plasma albumin tesha urement (mass/volume)Ordered By: HEALTH ASSESSMENT on 06-28-2023 Albumin [Mass/Vol] 3.8 g/dL 3.2-5.0 [facility] Serum or plasma albumin/glob ulin mass ratioOrdered By: HEALTH ASSESSMENT on 06-28-2023 Albumin/Globulin [Mass ratio] 1.0 {ratio} 0.9-2.4 [facility] Serum or plasma calcium tesha urement (mass/volume)Ordered By: HEALTH ASSESSMENT on 06-28-2023 Calcium [Mass/Vol] 9.0 mg/dL 8.5-10.1 [facility] Serum or plasma cholesterol in HDL measurement (mass/volume)Ordered By: HEALTH ASSESSMENT on 06-28-2023 Cholesterol in HDL [Mass/Vol] 58 mg/dL >40 [facility] Comment on above: The drugs N-Acetylcy steine and Metamizole may falsely depress this assay. Reference Range HDL <40 mg/dL Low HDL Cholesterol HDL >or= 60 mg/dL High HDL Cholesterol Serum or plasma cholesterol in VLDL measurement (mass/volume)Ordered By: HEALTH ASSESSMENT on 06-28-2023 Cholesterol in VLDL [Mass/Vol] 49 mg/dL 5-40 [facility] Serum or plasma creatinine m easurement (mass/volume)Ordered By: HEALTH ASSESSMENT on 06-28-2023 Creatinine [Mass/Vol] 0.62 mg/dL 0.55-1.02 [facility] Comment on above: The validity of the calculated GFR & GFRAA in patients over 70 years has not been determined. Clinical correlation is essential. Serum or plasma low density lipoprotein (LDL) cholesterol measurement (mass/volume)Ordered By: HEALTH ASSESSMENT on 06-28-2023 Cholesterol in LDL [Mass/Vol] 106 mg/dL 0-130 [facility] Serum or plasma urea nitroge n measurement (mass/volume)Ordered By: HEALTH ASSESSMENT on 06-28-2023 Urea nitrogen [Mass/Vol] 13 mg/dL 7-18 [facility] Serum or plasma uric acid me asurement (mass/volume)Ordered By: [facility] ASSESSMENT on 06-28-2023 Urate [Mass/Vol] 5.3 mg/dL 2.6-6.0 [facility] Comment on above: The drugs N-Acetylcy steine and Metamizole may falsely depress this assay. Thin prep Papanicolaou smear with manual screeningOrdered By: HEALTH ASSESSMENT on 06-28-2023 Thin prep Papanicolaou smear with manual screening 21 U/L 15-37 [facility] Thin prep Papanicolaou smear with manual screening 4 15 [facility] Urine blood detectionOrdered By: HEALTH ASSESSMENT on 06-28-2023 RBC Ql (U) 50 /ul Negative [facility] Urine clarityOrdered By: HEA LTH ASSESSMENT on 06-28-2023 Clarity (U) Sl. Cloudy Clear [facility] Urine color determinationOrd ered By: HEALTH ASSESSMENT on 06-28-2023 Color (U) Yellow Yellow [facility] Urine glucose detectionOrder ed By: HEALTH ASSESSMENT on 06-28-2023 Glucose Ql (U) Normal mg/dl Normal [facility] Urine leukocyte esterase det ection by dipstickOrdered By: HEALTH ASSESSMENT on 06-28-2023 Leukocyte esterase Test strip Ql (U) 100 /ul Negative [facility] Urine pHOrdered By: HEALTH A SSESSMENT on 06-28-2023 pH (U) 6.5 [pH] 5.0 - 8.0 [facility] Urine specific gravity measu rementOrdered By: HEALTH ASSESSMENT on 06-28-2023 Specific gravity (U) [Rel density] 1.010 1.002-1.030 [facility] Urobilinogen Auto test strip Ql (U)Ordered By: HEALTH ASSESSMENT on 06-28-2023 Urobilinogen Ql (U) Normal mg/dl Normal [facility] Basophil percentageOrdered B y: Maribel Clarke on 01-11-2023 Bilirubin [Mass/Vol] 0.50 mg/dL 0.20-1.00 [facility] Comment on above: For patients on eltr ombopag therapy, use of Dimension [place] TBIL is not recommended. Chloride [Moles/Vol] 106 mmol/L 98-107 [facility] Cholesterol [Mass/Vol] 197 mg/dL <200 [facility] Comment on above: <200 mg/dL Desirable 200-240 mg/dL Borderline >240 mg/dL High Risk Glucose [Mass/Vol] 107 mg/dL 74-106 [facility] Comment on above: Fasting Glucose resu lt from 100 to 125 mg/dL suggests IMPAIRED HOMEOSTASIS per A.D.A. criteria. Potassium [Moles/Vol] 3.7 mmol/L 3.5-5.1 [facility] Protein [Mass/Vol] 7.4 g/dL 6.4-8.2 [facility] Sodium [Moles/Vol] 139 mmol/L 136-145 [facility] Triglyceride [Mass/Vol] 333 mg/dL <199 [facility] Comment on above: The drugs N-Acetylcy steine and Metamizole may falsely depress this assay.Serum Triglycerides Reference Interval Normal <150 mg/dL Borderline high 150 - 199 mg/dL High 200 - 499 mg/dL Very High > or = 500 mg/dL Laboratory - Chemistry and C hemistry - challengeOrdered By: Maribel Clarke on 01-11-2023 ALP [Catalytic activity/Vol] 99 U/L 45-117 [facility] ALT [Catalytic activity/Vol] 53 U/L 13-56 [facility] CO2 [Moles/Vol] 26.0 mmol/L 21.0-32.0 [facility] Globulin (S) [Mass/Vol] 3.5 g/dL 2.2-4.2 [facility] Lipase [Catalytic activity/Vol] 179 U/L 73-393 [facility] Urea nitrogen/Creatinine [Mass ratio] 14.9 mg/mg 10-20 [facility] No Panel InformationOrdered By: Maribel Clarke on 01-11-2023 Estimated GFR (MDRD) Amer 103 mL/min >60 [facility] Comment on above: GFR Calc Estimated GFR (MDRD) Non-Af Amer 85 mL/min >60 [facility] Comment on above: Non- GFR Calc Thyroid Stimulating Hormone (TSH) 3.75 uIU/mL 0.358-3.74 [facility] Serum or plasma albumin tesha urement (mass/volume)Ordered By: Maribel Clarke on 01-11-2023 Albumin [Mass/Vol] 3.9 g/dL 3.2-5.0 [facility] Serum or plasma albumin/glob ulin mass ratioOrdered By: Maribel Clarke on 01-11-2023 Albumin/Globulin [Mass ratio] 1.1 {ratio} 0.9-2.4 [facility] Serum or plasma calcium tesha urement (mass/volume)Ordered By: Maribel Clarke on 01-11-2023 Calcium [Mass/Vol] 9.3 mg/dL 8.5-10.1 [facility] Serum or plasma cholesterol in HDL measurement (mass/volume)Ordered By: Maribel Clarke on 01-11-2023 Cholesterol in HDL [Mass/Vol] 45 mg/dL >40 [facility] Comment on above: The drugs N-Acetylcy steine and Metamizole may falsely depress this assay. Reference Range HDL <40 mg/dL Low HDL Cholesterol HDL >or= 60 mg/dL High HDL Cholesterol Serum or plasma cholesterol in VLDL measurement (mass/volume)Ordered By: Maribel Clarke on 01-11-2023 Cholesterol in VLDL [Mass/Vol] 67 mg/dL 5-40 [facility] Serum or plasma creatinine m easurement (mass/volume)Ordered By: Maribel Clarke on 01-11-2023 Creatinine [Mass/Vol] 0.74 mg/dL 0.55-1.02 [facility] Comment on above: The validity of the calculated GFR & GFRAA in patients over 70 years has not been determined. Clinical correlation is essential. Serum or plasma low density lipoprotein (LDL) cholesterol measurement (mass/volume)Ordered By: Maribel Clarke on 01-11-2023 Cholesterol in LDL [Mass/Vol] 85 mg/dL 0-130 [facility] Serum or plasma urea nitroge n measurement (mass/volume)Ordered By: Maribel Clarke on 01-11-2023 Urea nitrogen [Mass/Vol] 11 mg/dL 7-18 [facility] Thin prep Papanicolaou smear with manual screeningOrdered By: Maribel Clarke on 01-11-2023 Thin prep Papanicolaou smear with manual screening 45 U/L 15-37 [facility] Thin prep Papanicolaou smear with manual screening 7 5-15 [facility] No Panel Informationon 07-17 Thyroid Stimulating Hormone (TSH) 2.66 uIU/mL 0.358-3.74 [facility] Work Phone: Absolute lymphocyte counton 06-08-2022 Lymphocytes Auto (Unsp spec) [#/Vol] 3.71 10*3/uL 0.83-4.51 [facility] Work Phone: Absolute reticulocyte counto n 06-08-2022 Reticulocytes (Bld) [#/Vol] 0.00 10*3/uL 0-5 [facility] Work Phone: Basophil percentageon 2021 Basophil percentage 3.1 mg/dL 2.5-4.9 [facility] Work Phone: Bilirubin [Mass/Vol] 0.40 mg/dL 0.20-1.00 [facility] Work Phone: Comment on above: For patients on eltr ombopag therapy, use of Dimension [place] TBIL is not recommended. Chloride [Moles/Vol] 107 mmol/L 98-107 [facility] Work Phone: Cholesterol [Mass/Vol] 165 mg/dL <200 [facility] Work Phone: Comment on above: <200 mg/dL Desirable 200-240 mg/dL Borderline >240 mg/dL High Risk Glucose [Mass/Vol] 100 mg/dL 74-106 [facility] Work Phone: Comment on above: Fasting Glucose resu lt from 100 to 125 mg/dL suggests IMPAIRED HOMEOSTASIS per A.D.A. criteria. Neutrophils (Bld) [#/Vol] 3.5 10*3/uL 2.0-7.7 [facility] Work Phone: Potassium [Moles/Vol] 4.1 mmol/L 3.5-5.1 [facility] Work Phone: Protein [Mass/Vol] 7.7 g/dL 6.4-8.2 [facility] Work Phone: Sodium [Moles/Vol] 141 mmol/L 136-145 [facility] Work Phone: Triglyceride [Mass/Vol] 164 mg/dL <199 [facility] Work Phone: Comment on above: The drugs N-Acetylcy steine and Metamizole may falsely depress this assay.Serum Triglycerides Reference Interval Normal <150 mg/dL Borderline high 150 - 199 mg/dL High 200 - 499 mg/dL Very High > or = 500 mg/dL WBC (Bld) [#/Vol] 8.0 10*3/uL 4.4-11.0 [facility] Work Phone: Bilirubin Test strip Ql (U)o n 06-08-2022 Bilirubin Ql (U) Negative Negative [facility] Work Phone: Blood erythrocytes count (nu mber/volume)on 06-08-2022 RBC (Bld) [#/Vol] 4.69 10*6/uL [facility].2-5.[facility]: Blood hemoglobin measurement (mass/volume)on 06-08-2022 Hemoglobin (Bld) [Mass/Vol] 13.4 g/dL 12.0-15.0 [facility] Work Phone: Blood platelet mean volumeon 06-08-2022 Platelet mean volume (Bld) [Entitic vol] 9.2 fL 6.2-12.0 [facility] Work Phone: Determination of erythrocyte mean corpuscular volume (MCV)on 06-08-2022 MCV (RBC) [Entitic vol] 88.5 fL 81-99 [facility] Work Phone: Direct bilirubinon Bilirubin.direct [Mass/Vol] 0.14 mg/dL 0.00-0.30 [facility] Work Phone: Hematocrit Auto (Bld) [Volum e fraction]on 06-08-2022 Hematocrit (Bld) [Volume fraction] 41.5 % 37-47 [facility] Work Phone: Ketones Test strip Ql (U)on 06-08-2022 Ketones Ql (U) Negative Negative [facility] Work Phone: Laboratory - Chemistry and C hemistry - challengeon 06-08-2022 ALP [Catalytic activity/Vol] 53 U/L 45-117 [facility] Work Phone: ALT [Catalytic activity/Vol] 39 U/L 13-56 [facility] Work Phone: Cholesterol.total/Lavinia sterol in HDL [Mass ratio] 3.30 {ratio} [facility] Work Phone: CO2 [Moles/Vol] 27.0 mmol/L 21.0-32.0 [facility] Work Phone: Globulin (S) [Mass/Vol] 3.7 g/dL 2.2-4.2 [facility] Work Phone: Urea nitrogen/Creatinine [Mass ratio] 26.4 mg/mg 10-20 [facility] Work Phone: Laboratory - Hematology and Cell countson 06-08-2022 Erythrocyte distribution width (RBC) [Entitic vol] 43.2 fL 35.1-43.9 [facility] Work Phone: Erythrocyte distribution width (RBC) [Ratio] 13.3 % 11.6-14.6 [facility] Work Phone: MCH (RBC) [Entitic mass] 28.6 pg 27.0-32.0 [facility] Work Phone: Nucleated RBC/100 WBC (Bld) [Ratio] 0 % 0-5 [facility] Work Phone: MCHC Auto (RBC) [Mass/Vol]on 06-08-2022 MCHC (RBC) [Mass/Vol] 32.3 g/dL 32-36 [facility] Work Phone: Nitrite Test strip Ql (U)on 06-08-2022 Nitrite Ql (U) Negative Negative [facility] Work Phone: No Panel Informationon 06-08 Estimated GFR (MDRD) Amer 100 mL/min >60 [facility] Work Phone: Comment on above: GFR Calc Estimated GFR (MDRD) Non-Af Amer 83 mL/min >60 [facility] Work Phone: Comment on above: Non- GFR Calc Platelets bldon 06-08-2022 Platelets (Bld) [#/Vol] 425 10*3/uL 150-450 [facility] Work Phone: Protein Test strip Ql (U)on 06-08-2022 Protein Ql (U) Negative Negative [facility] Work Phone: Segmented neutrophils/100 WB C Auto (Bld)on 06-08-2022 Segmented neutrophils/100 WBC (Bld) 44.2 % 47-70 [facility] Work Phone: Serum or plasma albumin tesha urement (mass/volume)on 06-08-2022 Albumin [Mass/Vol] 4.0 g/dL 3.2-5.0 [facility] Work Phone: Serum or plasma albumin/glob ulin mass ratioon 06-08-2022 Albumin/Globulin [Mass ratio] 1.1 {ratio} 0.9-2.4 [facility] Work Phone: Serum or plasma calcium tesha urement (mass/volume)on 06-08-2022 Calcium [Mass/Vol] 9.2 mg/dL 8.5-10.1 [facility] Work Phone: Serum or plasma cholesterol in HDL measurement (mass/volume)on 06-08-2022 Cholesterol in HDL [Mass/Vol] 50 mg/dL >40 [facility] Work Phone: Comment on above: The drugs N-Acetylcy steine and Metamizole may falsely depress this assay. Reference Range HDL <40 mg/dL Low HDL Cholesterol HDL >or= 60 mg/dL High HDL Cholesterol Serum or plasma cholesterol in VLDL measurement (mass/volume)on 06-08-2022 Cholesterol in VLDL [Mass/Vol] 33 mg/dL 5-40 [facility] Work Phone: Serum or plasma creatinine m easurement (mass/volume)on 06-08-2022 Creatinine [Mass/Vol] 0.76 mg/dL 0.55-1.02 [facility] Work Phone: Comment on above: The validity of the calculated GFR & GFRAA in patients over 70 years has not been determined. Clinical correlation is essential. Serum or plasma low density lipoprotein (LDL) cholesterol measurement (mass/volume)on 06-08-2022 Cholesterol in LDL [Mass/Vol] 82 mg/dL 0-130 [facility] Work Phone: Serum or plasma urea nitroge n measurement (mass/volume)on 06-08-2022 Urea nitrogen [Mass/Vol] 20 mg/dL 7-18 [facility] Work Phone: Serum or plasma uric acid me asurement (mass/volume)on 06-08-2022 Urate [Mass/Vol] 3.5 mg/dL 2.6-6.0 [facility] Work Phone: Comment on above: The drugs N-Acetylcy steine and Metamizole may falsely depress this assay. Thin prep Papanicolaou smear with manual screeningon 06-08-2022 Thin prep Papanicolaou smear with manual screening 22 U/L 15-37 [facility] Work Phone: Thin prep Papanicolaou smear with manual screening 7 5-15 [facility] Work Phone: Thin prep Papanicolaou smear with manual screening 146 U/L 84-246 [facility] Work Phone: Urine blood detectionon - RBC Ql (U) 25 /ul Negative [facility] Work Phone: Urine clarityon 06-08-2022 Clarity (U) Clear Clear [facility] Work Phone: Urine color determinationon 06-08-2022 Color (U) Yellow Yellow [facility] Work Phone: Urine glucose detectionon Glucose Ql (U) Normal mg/dl Normal [facility] Work Phone: Urine leukocyte esterase det ection by dipstickon 06-08-2022 Leukocyte esterase Test strip Ql (U) Negative Negative [facility] Work Phone: Urine pHon 06-08-2022 pH (U) 6.0 [pH] 5.0 - 8.0 [facility] Work Phone: Urine specific gravity measu rementon 06-08-2022 Specific gravity (U) [Rel density] 1.015 1.002-1.030 [facility] Work Phone: Urobilinogen Auto test strip Ql (U)on 06-08-2022 Urobilinogen Ql (U) Normal mg/dl Normal [facility] Work Phone: No Panel Informationon 01-11 C-Reactive Protein High Sensitivity 1.54 mg/L [facility] Work Phone: Comment on above: Low Relative Risk of CVD <1.0 mg/L Average Relative Risk of CVD 1.0 - 3.0 mg/L High Relative Risk of CVD >3.0 mg/L Absolute lymphocyte counton 01-09-2022 Lymphocytes Auto (Unsp spec) [#/Vol] 3.04 10*3/uL 0.83-4.51 [facility] Work Phone: Basophil percentageon 2021 Basophils/100 WBC (Bld) 0.8 % 0-1 [facility] Work Phone: Bilirubin [Mass/Vol] 0.30 mg/dL 0.20-1.00 [facility] Work Phone: Comment on above: For patients on eltr ombopag therapy, use of Dimension [place] TBIL is not recommended. Chloride [Moles/Vol] 105 mmol/L 98-107 [facility] Work Phone: Cholesterol [Mass/Vol] 188 mg/dL <200 [facility] Work Phone: Comment on above: <200 mg/dL Desirable 200-240 mg/dL Borderline >240 mg/dL High Risk Eosinophils/100 WBC (Bld) 5.0 % 0-5 [facility] Work Phone: Glucose [Mass/Vol] 127 mg/dL 74-106 [facility] Work Phone: Comment on above: Fasting Glucose resu lt greater than or equal to 126 mg/dL suggests DIABETES MELLITUS per A.D.A. criteria. Neutrophils (Bld) [#/Vol] 3.6 10*3/uL 2.0-7.7 [facility] Work Phone: Neutrophils/100 WBC (Bld) 48.8 % 47-70 [facility] Work Phone: Potassium [Moles/Vol] 3.2 mmol/L 3.5-5.1 [facility] Work Phone: Protein [Mass/Vol] 7.9 g/dL 6.4-8.2 [facility] Work Phone: Sodium [Moles/Vol] 138 mmol/L 136-145 [facility] Work Phone: Triglyceride [Mass/Vol] 261 mg/dL [facility] Work Phone: Comment on above: The drugs N-Acetylcy steine and Metamizole may falsely depress this assay.Serum Triglycerides Reference Interval Normal <150 mg/dL Borderline high 150 - 199 mg/dL High 200 - 499 mg/dL Very High > or = 500 mg/dL WBC (Bld) [#/Vol] 7.4 10*3/uL 4.4-11.0 [facility] Work Phone: Blood erythrocytes count (nu mber/volume)on 01-09-2022 RBC (Bld) [#/Vol] 4.82 10*6/uL 4.2-5.4 [facility] Work Phone: Blood hemoglobin measurement (mass/volume)on 01-09-2022 Hemoglobin (Bld) [Mass/Vol] 13.7 g/dL 12.0-15.0 [facility] Work Phone: Blood lymphocytes/100 leukoc yteson 01-09-2022 Lymphocytes/100 WBC (Bld) 40.9 % 19-41 [facility] Work Phone: Blood monocytes/100 leukocyt eson 01-09-2022 Monocytes/100 WBC (Bld) 4.2 % 0-10 [facility] Work Phone: Blood platelet mean volumeon 01-09-2022 Platelet mean volume (Bld) [Entitic vol] 9.6 fL 6.2-12.0 [facility] Work Phone: Determination of erythrocyte mean corpuscular volume (MCV)on 01-09-2022 MCV (RBC) [Entitic vol] 84.9 fL 81-99 [facility] Work Phone: Hematocrit Auto (Bld) [Volum e fraction]on 01-09-2022 Hematocrit (Bld) [Volume fraction] 40.9 % 37-47 [facility] Work Phone: Laboratory - Chemistry and C hemistry - challengeon 01-09-2022 ALP [Catalytic activity/Vol] 62 U/L 45-117 [facility] Work Phone: ALT [Catalytic activity/Vol] 39 U/L 13-56 [facility] Work Phone: CO2 [Moles/Vol] 25.0 mmol/L 21.0-32.0 [facility] Work Phone: Globulin (S) [Mass/Vol] 3.8 g/dL 2.2-4.2 [facility] Work Phone: Urea nitrogen/Creatinine [Mass ratio] 22.3 mg/mg 10-20 [facility] Work Phone: Laboratory - Hematology and Cell countson 01-09-2022 Erythrocyte distribution width (RBC) [Entitic vol] 43.6 fL 35.1-43.9 [facility] Work Phone: Erythrocyte distribution width (RBC) [Ratio] 14.1 % 11.6-14.6 [facility] Work Phone: Immature granulocytes/100 WBC (Bld) 0.300 % 0.0-0.9 [facility] Work Phone: Comment on above: IG% - Immature Granu locytes (promyelocytes, myelocytes and metamyelocytes) > 1% indicates that a LEFT SHIFT is Present. MCH (RBC) [Entitic mass] 28.4 pg 27.0-32.0 [facility] Work Phone: Nucleated RBC/100 WBC (Bld) [Ratio] 0 % 0-5 [facility] Work Phone: MCHC Auto (RBC) [Mass/Vol]on 01-09-2022 MCHC (RBC) [Mass/Vol] 33.5 g/dL 32-36 [facility] Work Phone: No Panel Informationon 01-09 C-Reactive Protein High Sensitivity 1.53 mg/L [facility] Work Phone: Comment on above: Low Relative Risk of CVD <1.0 mg/L Average Relative Risk of CVD 1.0 - 3.0 mg/L High Relative Risk of CVD >3.0 mg/L Estimated GFR (MDRD) Amer 125 mL/min >60 [facility] Work Phone: Comment on above: GFR Calc Estimated GFR (MDRD) Non-Af Amer 103 mL/min >60 [facility] Work Phone: Comment on above: Non- GFR Calc Thyroid Stimulating Hormone (TSH) 0.86 uIU/mL 0.358-3.74 [facility] Work Phone: Platelets bldon 01-09-2022 Platelets (Bld) [#/Vol] 476 10*3/uL 150-450 [facility] Work Phone: Serum or plasma albumin tesha urement (mass/volume)on 01-09-2022 Albumin [Mass/Vol] 4.1 g/dL 3.2-5.0 [facility] Work Phone: Serum or plasma albumin/glob ulin mass ratioon 01-09-2022 Albumin/Globulin [Mass ratio] 1.1 {ratio} 0.9-2.4 [facility] Work Phone: Serum or plasma calcium tesha urement (mass/volume)on 01-09-2022 Calcium [Mass/Vol] 8.5 mg/dL 8.5-10.1 [facility] Work Phone: Serum or plasma cholesterol in HDL measurement (mass/volume)on 01-09-2022 Cholesterol in HDL [Mass/Vol] 44 mg/dL [facility] Work Phone: Comment on above: The drugs N-Acetylcy steine and Metamizole may falsely depress this assay. Reference Range HDL <40 mg/dL Low HDL Cholesterol HDL >or= 60 mg/dL High HDL Cholesterol Serum or plasma cholesterol in VLDL measurement (mass/volume)on 01-09-2022 Cholesterol in VLDL [Mass/Vol] 52 mg/dL 5-40 [facility] Work Phone: Serum or plasma creatinine m easurement (mass/volume)on 01-09-2022 Creatinine [Mass/Vol] 0.63 mg/dL 0.55-1.02 [facility] Work Phone: Comment on above: The validity of the calculated GFR & GFRAA in patients over 70 years has not been determined. Clinical correlation is essential. Serum or plasma low density lipoprotein (LDL) cholesterol measurement (mass/volume)on 01-09-2022 Cholesterol in LDL [Mass/Vol] 92 mg/dL 0-130 [facility] Work Phone: Serum or plasma urea nitroge n measurement (mass/volume)on 01-09-2022 Urea nitrogen [Mass/Vol] 14 mg/dL 7-18 [facility] Work Phone: Thin prep Papanicolaou smear with manual screeningon 01-09-2022 Thin prep Papanicolaou smear with manual screening 34 U/L 15-37 [facility] Work Phone: Thin prep Papanicolaou smear with manual screening 8 5-15 [facility] Work Phone: Clinical Summary: Finesse raulito 12-20-2021 MC25 OP Hand Invalid Interpretation Code [facility] Work Phone: Office Visit: Postop - subse quent visit, Rm: 5on 12-20-2021 NEGATED: Highlighted rowxray history of the Left hand on 11/10/[address] [facility] Invalid Interpretation Code [facility] Work Phone: Laboratory - Microbiology an d Antimicrobial susceptibilityon 10-14-2021 SARS-CoV-2 (COVID-19) RNA ETHAN+probe Ql (Unsp spec) Detected Not Detect [facility] Work Phone: Comment on above: Normal Reference Ran ge: Not DetectedMethod:(RT-PCR) real-time reverse transcriptase PCRLuminex HUYEN Instrument*The Food and Drug Administration (FDA) has issued an Emergency Use Authorization (EAU) for the HUYEN SARS-CoV-2 Assay for the rapid detection of the virus that causes COVID-19. This test has been validated, but the FDAs independent review of this validation is pending.*Negative results do not preclude infection and should not be used as the sole basis for treatment or patient management. Optimum specimen types and timing for peak viral levels during infections caused by SARS-CoV-2 have not been determined. Collection of multiple specimens from the same patient may be necessary to detect the virus. The possibility of a false negative result should be considered if the patient has clinical presentation or has had recent exposure. Otheron 11-16-1998 CONVERTED ELECTRONIC SIGNATURE HANNAH RAE M.D., PATHOLOGIST (Electronic signature on file) Final Signed Out: 11/16/1998 10:54 [facility] CONVERTED FINAL DIAGNOSIS RIGHT KNEE, SHAVINGS - FRAGMENTS OF SYNOVIUM WITH MILD CHRONIC INFLAMMATION AND HEMOSIDERIN-LADEN MACROPHAGES. UNREMARKABLE FRAGMENTS OF BONE AND FIBROCARTILAGE. [facility] CONVERTED ORDERING PROVIDER Ordering Provider: LEXY LOPEZ [facility] Vital Signs Date Time Vital Sign Value Performing Clinician Facility 03-12-2025 19:27-0400 Body height 147.32 cm Maribel Clarke BILL OF MATERIALS CLERK-C Work Phone: [facility] 02-11-2025 21:42-0400 Body mass index (BMI) [Ratio] 31.3 kg/m2 Maribel Clarke BILL OF MATERIALS CLERK-C Work Phone: [facility] 02-11-2025 21:42-0400 Body temperature 97.5 [degF] Maribel Clarke BILL OF MATERIALS CLERK-C Work Phone: [facility] 02-11-2025 21:42-0400 Body weight 68.03 kg Maribel Clarke BILL OF MATERIALS CLERK-C Work Phone: [facility] 02-11-2025 21:42-0400 Diastolic blood pressure 70 mm[Hg] Maribel Clarke BILL OF MATERIALS CLERK-C Work Phone: [facility] 02-11-2025 21:42-0400 Heart rate 89 /min Maribel Clarke BILL OF MATERIALS CLERK-C Work Phone: [facility] 02-11-2025 21:42-0400 Respiratory rate 18 /min Maribel Clarke BILL OF MATERIALS CLERK-C Work Phone: [facility] 02-11-2025 21:42-0400 SaO2% (BldA) [Mass fraction] 96 % Maribel Clarke BILL OF MATERIALS CLERK-C Work Phone: [facility] 02-11-2025 21:42-0400 Systolic blood pressure 104 mm[Hg] Maribel Clarke BILL OF MATERIALS CLERK-C Work Phone: [facility] 01-07-2024 15:25-0400 Body height 147.32 cm BILL OF MATERIALS CLERK-C Maribel Clarke BILL OF MATERIALS CLERK Work Phone: [facility] 01-07-2024 15:25-0400 Body mass index (BMI) [Ratio] 32.5 kg/m2 BILL OF MATERIALS CLERK-C Maribel Clarke BILL OF MATERIALS CLERK Work Phone: [facility] 01-07-2024 15:25-0400 Body temperature 97.5 [degF] BILL OF MATERIALS CLERK-C Maribel Clarke BILL OF MATERIALS CLERK Work Phone: [facility] 01-07-2024 15:25-0400 Body weight 70.76 kg BILL OF MATERIALS CLERK-C Maribel Clarke BILL OF MATERIALS CLERK Work Phone: [facility] 01-07-2024 15:25-0400 Diastolic blood pressure 60 mm[Hg] BILL OF MATERIALS CLERK-C Maribel Clarke BILL OF MATERIALS CLERK Work Phone: [facility] 01-07-2024 15:25-0400 Heart rate 107 /min BILL OF MATERIALS CLERK-C Maribel Clarke BILL OF MATERIALS CLERK Work Phone: [facility] 01-07-2024 15:25-0400 Respiratory rate 18 /min BILL OF MATERIALS CLERK-C Maribel Clarke BILL OF MATERIALS CLERK Work Phone: [facility] 01-07-2024 15:25-0400 SaO2% (BldA) [Mass fraction] 96 % BILL OF MATERIALS CLERK-C Maribel Clarke BILL OF MATERIALS CLERK Work Phone: [facility] 01-07-2024 15:25-0400 Systolic blood pressure 110 mm[Hg] BILL OF MATERIALS CLERK-C Maribel Clarke BILL OF MATERIALS CLERK Work Phone: [facility] 10-02-2023 15:00-0500 Body height 147.32 cm BILL OF MATERIALS CLERK-C Maribel Clarke BILL OF MATERIALS CLERK Work Phone: [facility] 10-02-2023 15:00-0500 Body mass index (BMI) [Ratio] 31.5 kg/m2 BILL OF MATERIALS CLERK-C Maribel Clarke BILL OF MATERIALS CLERK Work Phone: [facility] 10-02-2023 15:00-0500 Body weight 68.49 kg BILL OF MATERIALS CLERK-C Maribel Clarke BILL OF MATERIALS CLERK Work Phone: [facility] 10-02-2023 15:00-0500 Diastolic blood pressure 81 mm[Hg] BILL OF MATERIALS CLERK-C Maribel Clarke BILL OF MATERIALS CLERK Work Phone: [facility] 10-02-2023 15:00-0500 Heart rate 102 /min BILL OF MATERIALS CLERK-C Maribel Clarke BILL OF MATERIALS CLERK Work Phone: [facility] 10-02-2023 15:00-0500 Respiratory rate 16 /min BILL OF MATERIALS CLERK-C Maribel Clarke BILL OF MATERIALS CLERK Work Phone: [facility] 10-02-2023 15:00-0500 Systolic blood pressure 123 mm[Hg] BILL OF MATERIALS CLERK-C Maribel Clarke BILL OF MATERIALS CLERK Work Phone: [facility] 08-31-2023 18:36-0500 Body mass index (BMI) [Ratio] 32.3 kg/m2 BILL OF MATERIALS CLERK-C Maribel Clarke BILL OF MATERIALS CLERK Work Phone: [facility] 08-31-2023 18:36-0500 Body temperature 97.7 [degF] BILL OF MATERIALS CLERK-C Maribel Clarke BILL OF MATERIALS CLERK Work Phone: [facility] 08-31-2023 18:36-0500 Body weight 70.3 kg BILL OF MATERIALS CLERK-C Maribel Clarke BILL OF MATERIALS CLERK Work Phone: [facility] 08-31-2023 18:36-0500 Diastolic blood pressure 80 mm[Hg] BILL OF MATERIALS CLERK-C Maribel Clarke BILL OF MATERIALS CLERK Work Phone: [phone] [place] [address] 08-31-2023 18:36-0500 Heart rate 98 /min BILL OF MATERIALS CLERK-C Maribel Clarke BILL OF MATERIALS CLERK Work Phone: [facility] 08-31-2023 18:36-0500 Respiratory rate 18 /min BILL OF MATERIALS CLERK-C Maribel Clarke BILL OF MATERIALS CLERK Work Phone: [facility] 08-31-2023 18:36-0500 SaO2% (BldA) [Mass fraction] 93 % BILL OF MATERIALS CLERK-C Maribel Clarke BILL OF MATERIALS CLERK Work Phone: [facility] 08-31-2023 18:36-0500 Systolic blood pressure 122 mm[Hg] BILL OF MATERIALS CLERK-C Maribel Clarke BILL OF MATERIALS CLERK Work Phone: [facility] 08-20-2023 13:59-0500 Body temperature 97 [degF] BILL OF MATERIALS CLERK-C Maribel Clarke BILL OF MATERIALS CLERK Work Phone: [facility] 08-20-2023 13:59-0500 Diastolic blood pressure 73 mm[Hg] BILL OF MATERIALS CLERK-C Maribel Clarke BILL OF MATERIALS CLERK Work Phone: [facility] 08-20-2023 13:59-0500 Heart rate 76 /min BILL OF MATERIALS CLERK-C Maribel Clarke BILL OF MATERIALS CLERK Work Phone: [facility] 08-20-2023 13:59-0500 Respiratory rate 16 /min BILL OF MATERIALS CLERK-C Maribel Clarke BILL OF MATERIALS CLERK Work Phone: [facility] 08-20-2023 13:59-0500 SaO2% (BldA) [Mass fraction] 97 % BILL OF MATERIALS CLERK-C Maribel Clarke BILL OF MATERIALS CLERK Work Phone: [facility] 11-06-2023 13:59-0500 Systolic blood pressure 114 mm[Hg] BILL OF MATERIALS CLERK-C Maribel Clarke BILL OF MATERIALS CLERK Work Phone: [facility] 08-20-2023 12:52-0500 Body height 147.32 cm BILL OF MATERIALS CLERK-C Maribel Clarke BILL OF MATERIALS CLERK Work Phone: [facility] 08-20-2023 12:52-0500 Body mass index (BMI) [Ratio] 30.9 kg/m2 BILL OF MATERIALS CLERK-C Maribel Clarke BILL OF MATERIALS CLERK Work Phone: [facility] 08-20-2023 12:52-0500 Body weight 67 kg BILL OF MATERIALS CLERK-C Maribel Clarke BILL OF MATERIALS CLERK Work Phone: [facility] 08-14-2023 09:28-0400 Body mass index (BMI) [Ratio] 30.3 kg/m2 BILL OF MATERIALS CLERK-C Maribel Clarke BILL OF MATERIALS CLERK Work Phone: [phone] [place] [address] 08-14-2023 09:28-0400 Body weight 65.77 kg BILL OF MATERIALS CLERK-C Maribel Clarke BILL OF MATERIALS CLERK Work Phone: [facility] 07-10-2023 17:38-0400 Body height 147.32 cm BILL OF MATERIALS CLERK-C Maribel Clarke BILL OF MATERIALS CLERK Work Phone: [facility] 07-10-2023 17:38-0400 Body mass index (BMI) [Ratio] 31.1 kg/m2 BILL OF MATERIALS CLERK-C Maribel Clarke BILL OF MATERIALS CLERK Work Phone: [facility] 07-10-2023 17:38-0400 Body temperature 97.9 [degF] BILL OF MATERIALS CLERK-C Maribel Clarke BILL OF MATERIALS CLERK Work Phone: [facility] 07-10-2023 17:38-0400 Body weight 67.58 kg BILL OF MATERIALS CLERK-C Maribel Clarke BILL OF MATERIALS CLERK Work Phone: [facility] 07-10-2023 17:38-0400 Diastolic blood pressure 80 mm[Hg] BILL OF MATERIALS CLERK-C Maribel Clarke BILL OF MATERIALS CLERK Work Phone: [facility] 07-10-2023 17:38-0400 Heart rate 66 /min BILL OF MATERIALS CLERK-C Maribel Clarke BILL OF MATERIALS CLERK Work Phone: [facility] 07-10-2023 17:38-0400 Respiratory rate 18 /min BILL OF MATERIALS CLERK-C Maribel Clarke BILL OF MATERIALS CLERK Work Phone: [facility] 07-10-2023 17:38-0400 SaO2% (BldA) [Mass fraction] 96 % BILL OF MATERIALS CLERK-C Maribel Clarke BILL OF MATERIALS CLERK Work Phone: [facility] 07-10-2023 17:38-0400 Systolic blood pressure 118 mm[Hg] BILL OF MATERIALS CLERK-C Maribel Clarke BILL OF MATERIALS CLERK Work Phone: [facility] 05-23-2023 05:35-0400 Body mass index (BMI) [Ratio] 30.7 kg/m2 BILL OF MATERIALS CLERK-C Maribel Clarke BILL OF MATERIALS CLERK Work Phone: [facility] 05-23-2023 05:35-0400 Body temperature 97.6 [degF] BILL OF MATERIALS CLERK-C Maribel Clarke BILL OF MATERIALS CLERK Work Phone: [facility] 05-23-2023 05:35-0400 Body weight 66.67 kg BILL OF MATERIALS CLERK-C Maribel Clarke BILL OF MATERIALS CLERK Work Phone: [facility] 05-23-2023 05:35-0400 Diastolic blood pressure 79 mm[Hg] BILL OF MATERIALS CLERK-C Maribel Clarke BILL OF MATERIALS CLERK Work Phone: [facility] 05-23-2023 05:35-0400 Heart rate 84 /min BILL OF MATERIALS CLERK-C Maribel Clarke BILL OF MATERIALS CLERK Work Phone: [facility] 05-23-2023 05:35-0400 Respiratory rate 18 /min BILL OF MATERIALS CLERK-C Maribel Clarke BILL OF MATERIALS CLERK Work Phone: [facility] 05-23-2023 05:35-0400 SaO2% (BldA) [Mass fraction] 97 % BILL OF MATERIALS CLERK-C Maribel Clarke BILL OF MATERIALS CLERK Work Phone: [facility] 05-23-2023 05:35-0400 Systolic blood pressure 123 mm[Hg] BILL OF MATERIALS CLERK-C Maribel Clarke BILL OF MATERIALS CLERK Work Phone: [facility] 03-26-2023 15:08-0400 Body mass index (BMI) [Ratio] 31.5 kg/m2 BILL OF MATERIALS CLERK-C Maribel Clarke BILL OF MATERIALS CLERK Work Phone: [facility] 03-26-2023 15:08-0400 Body temperature 98.1 [degF] BILL OF MATERIALS CLERK-C Maribel Clarke BILL OF MATERIALS CLERK Work Phone: [facility] 03-26-2023 15:08-0400 Body weight 68.49 kg BILL OF MATERIALS CLERK-C Maribel Clarke BILL OF MATERIALS CLERK Work Phone: [facility] 03-26-2023 15:08-0400 Diastolic blood pressure 70 mm[Hg] BILL OF MATERIALS CLERK-C Maribel Clarke BILL OF MATERIALS CLERK Work Phone: [facility] 03-26-2023 15:08-0400 Heart rate 106 /min BILL OF MATERIALS CLERK-C Maribel Clarke BILL OF MATERIALS CLERK Work Phone: [facility] 03-26-2023 15:08-0400 Respiratory rate 18 /min BILL OF MATERIALS CLERK-C Maribel Clarke BILL OF MATERIALS CLERK Work Phone: [facility] 03-26-2023 15:08-0400 SaO2% (BldA) [Mass fraction] 96 % BILL OF MATERIALS CLERK-C Maribel Clarke BILL OF MATERIALS CLERK Work Phone: [facility] 03-26-2023 15:08-0400 Systolic blood pressure 120 mm[Hg] BILL OF MATERIALS CLERK-C Maribel Clarke BILL OF MATERIALS CLERK Work Phone: [facility] 01-11-2023 16:05-0400 Body height 147.32 cm [facility] 01-11-2023 16:05-0400 Body mass index (BMI) [Ratio] 31.1 kg/m2 [facility] 01-11-2023 16:05-0400 Body temperature 98.1 [degF] [facility] 01-11-2023 16:05-0400 Body weight 67.58 kg [facility] 01-11-2023 16:05-0400 Diastolic blood pressure 60 mm[Hg] [facility] 01-11-2023 16:05-0400 Heart rate 116 /min [facility] 01-11-2023 16:05-0400 Respiratory rate 18 /min [facility] 01-11-2023 16:05-0400 SaO2% (BldA) [Mass fraction] 96 % [facility] 01-11-2023 16:05-0400 Systolic blood pressure 100 mm[Hg] [facility] 07-17-2022 17:28-0400 Body height 147.32 cm BILL OF MATERIALS CLERK-C Maribel Clarke BILL OF MATERIALS CLERK Work Phone: [facility] Work Phone: 07-17-2022 17:28-0400 Body mass index (BMI) [Ratio] 30.9 kg/m2 BILL OF MATERIALS CLERK-C Maribel Clarke BILL OF MATERIALS CLERK Work Phone: [facility] Work Phone: 07-17-2022 17:28-0400 Body temperature 98.1 [degF] BILL OF MATERIALS CLERK-C Maribel Clarke BILL OF MATERIALS CLERK Work Phone: [facility] Work Phone: 07-17-2022 17:28-0400 Body weight 67.13 kg BILL OF MATERIALS CLERK-C Maribel Clarke BILL OF MATERIALS CLERK Work Phone: [facility] Work Phone: 07-17-2022 17:28-0400 Diastolic blood pressure 70 mm[Hg] BILL OF MATERIALS CLERK-C Maribel Clarke BILL OF MATERIALS CLERK Work Phone: [facility] Work Phone: 07-17-2022 17:28-0400 Heart rate 105 /min BILL OF MATERIALS CLERK-C Maribel Clarke BILL OF MATERIALS CLERK Work Phone: [facility] Work Phone: 07-17-2022 17:28-0400 Respiratory rate 18 /min BILL OF MATERIALS CLERK-C Maribel Clarke BILL OF MATERIALS CLERK Work Phone: [facility] Work Phone: 07-17-2022 17:28-0400 SaO2% (BldA) [Mass fraction] 95 % BILL OF MATERIALS CLERK-C Maribel Clarke BILL OF MATERIALS CLERK Work Phone: [facility] Work Phone: 07-17-2022 17:28-0400 Systolic blood pressure 110 mm[Hg] BILL OF MATERIALS CLERK-C Maribel Vince BILL OF MATERIALS CLERK Work Phone: [facility] Work Phone: 07-14-2022 10:28-0400 Body mass index (BMI) [Ratio] 30.1 kg/m2 BILL OF MATERIALS CLERK-C Maribel Clarke BILL OF MATERIALS CLERK Work Phone: [facility] Work Phone: 07-14-2022 10:28-0400 Body weight 65.31 kg BILL OF MATERIALS CLERK-C Maribel Rubioson BILL OF MATERIALS CLERK Work Phone: [facility] Work Phone: 07-14-2022 10:28-0400 Diastolic blood pressure 76 mm[Hg] BILL OF MATERIALS CLERK-C Maribel Rubioson BILL OF MATERIALS CLERK Work Phone: [facility] Work Phone: 07-14-2022 10:28-0400 Heart rate 100 /min BILL OF MATERIALS CLERK-C Maribel Rubioson BILL OF MATERIALS CLERK Work Phone: [facility] Work Phone: 07-14-2022 10:28-0400 Respiratory rate 16 /min BILL OF MATERIALS CLERK-C Maribel Rubioson BILL OF MATERIALS CLERK Work Phone: [facility] Work Phone: 07-14-2022 10:28-0400 SaO2% (BldA) [Mass fraction] 99 % BILL OF MATERIALS CLERK-C Maribel Clarke BILL OF MATERIALS CLERK Work Phone: [facility] Work Phone: 07-14-2022 10:28-0400 Systolic blood pressure 107 mm[Hg] BILL OF MATERIALS CLERK-C Maribel Clarke BILL OF MATERIALS CLERK Work Phone: [facility] Work Phone: 06-08-2022 07:41-0400 Body mass index (BMI) [Ratio] 30.4 kg/m2 BILL OF MATERIALS CLERK-C Maribel Clarke BILL OF MATERIALS CLERK Work Phone: [facility] Work Phone: 06-08-2022 07:41-0400 Body temperature 95.7 [degF] BILL OF MATERIALS CLERK-C Maribel Clarke BILL OF MATERIALS CLERK Work Phone: [facility] Work Phone: 06-08-2022 07:41-0400 Body weight 65.94 kg BILL OF MATERIALS CLERK-C Maribel Clarke BILL OF MATERIALS CLERK Work Phone: [facility] Work Phone: 06-08-2022 07:41-0400 Diastolic blood pressure 85 mm[Hg] BILL OF MATERIALS CLERK-C Maribel Clarke BILL OF MATERIALS CLERK Work Phone: [facility] Work Phone: 06-08-2022 07:41-0400 Heart rate 88 /min BILL OF MATERIALS CLERK-C Maribel Clarke BILL OF MATERIALS CLERK Work Phone: [facility] Work Phone: 06-08-2022 07:41-0400 Respiratory rate 16 /min BILL OF MATERIALS CLERK-C Maribel Clarke BILL OF MATERIALS CLERK Work Phone: [facility] Work Phone: 06-08-2022 07:41-0400 SaO2% (BldA) [Mass fraction] 95 % BILL OF MATERIALS CLERK-C Maribel Clarke BILL OF MATERIALS CLERK Work Phone: [facility] Work Phone: 06-08-2022 07:41-0400 Systolic blood pressure 132 mm[Hg] BILL OF MATERIALS CLERK-C Maribel Clarke BILL OF MATERIALS CLERK Work Phone: [facility] Work Phone: 01-11-2022 09:30-0400 Body height 147.32 cm BILL OF MATERIALS CLERK-C Maribel Clarke BILL OF MATERIALS CLERK Work Phone: [facility] Work Phone: 01-11-2022 09:30-0400 Body mass index (BMI) [Ratio] 29.7 kg/m2 BILL OF MATERIALS CLERK-C Maribel Clarke BILL OF MATERIALS CLERK Work Phone: [facility] Work Phone: 01-11-2022 09:30-0400 Body weight 64.41 kg BILL OF MATERIALS CLERK-C Maribel Clarke BILL OF MATERIALS CLERK Work Phone: [facility] Work Phone: 01-09-2022 15:35-0400 Body mass index (BMI) [Ratio] 29.7 kg/m2 BILL OF MATERIALS CLERK-C Maribel Clarke BILL OF MATERIALS CLERK Work Phone: [facility] Work Phone: 01-09-2022 15:35-0400 Body temperature 97 [degF] BILL OF MATERIALS CLERK-C Maribel Clarke BILL OF MATERIALS CLERK Work Phone: [facility] Work Phone: 01-09-2022 15:35-0400 Body weight 64.41 kg BILL OF MATERIALS CLERK-C Maribel Clarke BILL OF MATERIALS CLERK Work Phone: [facility] Work Phone: 01-09-2022 15:35-0400 Diastolic blood pressure 70 mm[Hg] BILL OF MATERIALS CLERK-C Maribel Clarke BILL OF MATERIALS CLERK Work Phone: [facility] Work Phone: 01-09-2022 15:35-0400 Heart rate 104 /min BILL OF MATERIALS CLERK-C Maribel Clarke BILL OF MATERIALS CLERK Work Phone: [facility] Work Phone: 01-09-2022 15:35-0400 Respiratory rate 18 /min BILL OF MATERIALS CLERK-C Maribel Clarke BILL OF MATERIALS CLERK Work Phone: [facility] Work Phone: 01-09-2022 15:35-0400 SaO2% (BldA) [Mass fraction] 99 % BILL OF MATERIALS CLERK-C Maribel Clarke BILL OF MATERIALS CLERK Work Phone: [facility] Work Phone: 01-09-2022 15:35-0400 Systolic blood pressure 130 mm[Hg] BILL OF MATERIALS CLERK-C Maribel Rubioson BILL OF MATERIALS CLERK Work Phone: [facility] Work Phone: 10-18-2021 15:28-0500 Body temperature 98.6 [degF] BILL OF MATERIALS CLERK-C Maribel Rubioson BILL OF MATERIALS CLERK Work Phone: [facility] Work Phone: 10-18-2021 15:28-0500 Diastolic blood pressure 75 mm[Hg] BILL OF MATERIALS CLERK-C Maribel Rubioson BILL OF MATERIALS CLERK Work Phone: [facility] Work Phone: 10-18-2021 15:28-0500 Heart rate 97 /min BILL OF MATERIALS CLERK-C Maribel Rubioson BILL OF MATERIALS CLERK Work Phone: [facility] Work Phone: 10-18-2021 15:28-0500 Respiratory rate 16 /min BILL OF MATERIALS CLERK-C Maribel Rubioson BILL OF MATERIALS CLERK Work Phone: [facility] Work Phone: 10-18-2021 15:28-0500 SaO2% (BldA) [Mass fraction] 99 % BILL OF MATERIALS CLERK-C Marible Rubioson BILL OF MATERIALS CLERK Work Phone: [facility] Work Phone: 10-18-2021 15:28-0500 Systolic blood pressure 115 mm[Hg] BILL OF MATERIALS CLERK-C Maribel Rubioson BILL OF MATERIALS CLERK Work Phone: [facility] Work Phone: 10-18-2021 13:44-0500 Body mass index (BMI) [Ratio] 29.9 kg/m2 BILL OF MATERIALS CLERK-C Maribel Rubioson BILL OF MATERIALS CLERK Work Phone: [facility] Work Phone: 10-18-2021 13:44-0500 Body weight 64.86 kg BILL OF MATERIALS CLERK-C Maribel Rubioson BILL OF MATERIALS CLERK Work Phone: [facility] Work Phone: NEGATED: Highlighted [id number] 14:36-0500 Body height 147.32 cm Jessicabeatris Raman AT [facility] Work Phone: NEGATED: Highlighted [id number] 14:36-0500 Body height 147 cm Jessicabeatris Raman AT [facility] Work Phone: NEGATED: Highlighted [id number] 14:36-0500 Body mass index (BMI) [Ratio] 31.67 kg/m2 Jessicabeatris Raman AT [facility] Work Phone: NEGATED: Highlighted [id number] 14:36-0500 Body weight 68.49 kg Jessica Raman AT [facility] Work Phone: NEGATED: Highlighted [id number] 14:36-0500 Body weight 69 kg Jessica Raman AT [facility] Work Phone: Encounters Encounter Date Encounter Type Care Provider Facility Start: 03-12-2025 End: 03-12-2025 ambulatory Maribel Clarke BILL OF MATERIALS CLERK-C Work Phone: [facility] Work Phone: Start: 03-12-2025 End: 03-12-2025 Patient encounter procedure Maribel Clarke BILL OF MATERIALS CLERK-C -Laboratory Specimen Work Phone: Start: 03-12-2025 End: 03-12-2025 ambulatory Maribel Clarke BILL OF MATERIALS CLERK Facility:[facility] Start: 02-12-2025 End: 02-12-2025 Patient encounter procedure Maribel Clarke BILL OF MATERIALS CLERK-C -Laboratory Work Phone: Start: 02-12-2025 End: 02-12-2025 ambulatory Maribel Clarke BILL OF MATERIALS CLERK Facility:[facility] Start: 11-03-2024 End: 11-03-2024 ambulatory Maribel Clarke BILL OF MATERIALS CLERK Facility:[facility] Start: 10-23-2024 End: 10-23-2024 ambulatory Maribel Clarke BILL OF MATERIALS CLERK Facility:[facility] Start: 10-03-2024 End: 10-03-2024 ambulatory Maribel Clarke BILL OF MATERIALS CLERK Facility:[facility] Start: 09-08-2024 Encounter for genera l adult medical examination without abnormal findings Maribel Clarke BILL OF MATERIALS CLERK [facility] Start: 08-18-2024 End: 08-18-2024 ambulatory Maribel Clarke BILL OF MATERIALS CLERK Facility:[facility] Start: 06-24-2024 End: 06-24-2024 ambulatory Isabella Collier BILL OF MATERIALS CLERK Facility:[facility] Start: 04-15-2024 End: 04-15-2024 ambulatory Maribel Clarke BILL OF MATERIALS CLERK Facility:[facility] Start: 04-15-2024 End: 04-15-2024 ambulatory Maribel Clarke BILL OF MATERIALS CLERK Facility:[facility] Start: 01-07-2024 End: 01-07-2024 ambulatory BILL OF MATERIALS CLERK-C Maribel Clarke BILL OF MATERIALS CLERK Work Phone: [facility] Work Phone: Start: 01-07-2024 End: 01-07-2024 Patient encounter procedure BILL OF MATERIALS CLERK-C Maribel Clarke BILL OF MATERIALS CLERK Work Phone: [facility]-Laboratory, Specimen Work Phone: Start: 10-16-2023 End: 10-16-2023 ambulatory BILL OF MATERIALS CLERK-C Maribel Clarke BILL OF MATERIALS CLERK Work Phone: [facility] Work Phone: Start: 10-16-2023 End: 10-16-2023 Patient encounter procedure BILL OF MATERIALS CLERK-C Maribel Clarke BILL OF MATERIALS CLERK Work Phone: [facility]-Pulmonary Services/Neurology Work Phone: Start: 10-09-2023 End: 10-09-2023 Patient encounter procedure BILL OF MATERIALS CLERK-C Maribel Clarke BILL OF MATERIALS CLERK Work Phone: [facility] Work Phone: Start: 10-06-2023 End: 10-06-2023 Patient encounter procedure BILL OF MATERIALS CLERK-C Maribel Clarke BILL OF MATERIALS CLERK Work Phone: [facility]-Laboratory Work Phone: Start: 10-02-2023 End: 10-02-2023 Patient encounter procedure BILL OF MATERIALS CLERK-German Clarke BILL OF MATERIALS CLERK Work Phone: [facility] Work Phone: Start: 08-20-2023 Non-patient / Non-visit BILL OF MATERIALS CLERK-German Clarke BILL OF MATERIALS CLERK Work Phone: [place] [facility] Start: 08-20-2023 End: 08-20-2023 Admission to same day surgery center BILL OF MATERIALS CLERK-German Clarke BILL OF MATERIALS CLERK Work Phone: [facility]-Endoscopy Work Phone: Start: 08-20-2023 End: 08-20-2023 ambulatory BILL OF MATERIALS CLERK-German Clarke BILL OF MATERIALS CLERK Work Phone: [facility] Work Phone: Start: 08-14-2023 Non-patient / Non-visit BILL OF MATERIALS CLERK-C David Clarke BILL OF MATERIALS CLERK Work Phone: [facility] Work Phone: Start: 07-10-2023 End: 07-10-2023 ambulatory BILL OF MATERIALS CLERK-German Clarke BILL OF MATERIALS CLERK Work Phone: [facility] Work Phone: Start: 07-10-2023 End: 07-10-2023 Patient encounter procedure BILL OF MATERIALS CLERK-German Clarke BILL OF MATERIALS CLERK Work Phone: [facility]-Laboratory, Specimen Work Phone: Start: 06-28-2023 Registered Referred BILL OF MATERIALS CLERK-German Clarke BILL OF MATERIALS CLERK Work Phone: [facility]-Employee Health Start: 05-23-2023 End: 05-23-2023 Patient encounter procedure BILL OF MATERIALS CLERK-German Clarke BILL OF MATERIALS CLERK Work Phone: [facility]-Pulmonary Medicine [facility] Work Phone: Start: 01-24-2023 End: 01-24-2023 ambulatory [facility] Work Phone: Start: 01-24-2023 End: 01-24-2023 Patient encounter procedure [facility]-Ultrasound, [facility] Start: 01-11-2023 End: 01-11-2023 Patient encounter procedure [facility]-Laboratory, Specimen Start: 08-24-2022 End: 08-24-2022 ambulatory BILL OF MATERIALS CLERK-German Clarke BILL OF MATERIALS CLERK Work Phone: [facility] Work Phone: Start: 08-24-2022 End: 08-24-2022 Patient encounter procedure BILL OF MATERIALS CLERK-German Clarke BILL OF MATERIALS CLERK Work Phone: [facility]-Outpatient Breast Imaging Start: 07-17-2022 End: 07-17-2022 ambulatory BILL OF MATERIALS CLERK-German Clarke BILL OF MATERIALS CLERK Work Phone: [facility] Work Phone: Start: 07-17-2022 End: 07-17-2022 Patient encounter procedure BILL OF MATERIALS CLERK-German Clarke BILL OF MATERIALS CLERK Work Phone: [facility]-Laboratory, Specimen Start: 07-17-2022 Patient encounter status BILL OF MATERIALS CLERK-German Clarke BILL OF MATERIALS CLERK Work Phone: [facility] Start: 07-14-2022 End: 07-14-2022 Patient encounter procedure BILL OF MATERIALS CLERK-German Clarke BILL OF MATERIALS CLERK Work Phone: [facility] Start: 06-08-2022 Registered Referred BILL OF MATERIALS CLERK-German Clarke BILL OF MATERIALS CLERK Work Phone: [facility] Health Start: 06-08-2022 End: 06-08-2022 Patient encounter procedure BILL OF MATERIALS CLERK-German Clarke BILL OF MATERIALS CLERK Work Phone: [facility]-Pulmonary Medicine [facility] Start: 02-13-2022 Non-patient / Non-visit BILL OF MATERIALS CLERK-German Clarke BILL OF MATERIALS CLERK Work Phone: [facility] Start: 02-13-2022 End: 02-13-2022 Patient encounter procedure BILL OF MATERIALS CLERK-German Clarke BILL OF MATERIALS CLERK Work Phone: [facility]-Cardiovascula r Services Start: 01-11-2022 End: 01-11-2022 Patient encounter procedure BILL OF MATERIALS CLERK-German Clarke BILL OF MATERIALS CLERK Work Phone: [facility]-Laboratory Start: 01-09-2022 End: 01-09-2022 Patient encounter procedure BILL OF MATERIALS CLERK-German Clarke BILL OF MATERIALS CLERK Work Phone: [facility]-Laboratory, Specimen Start: 12-13-2021 End: 12-13-2021 Discharged Recurring BILL OF MATERIALS CLERK-C Maribel Clarke BILL OF MATERIALS CLERK Work Phone: [facility]-Occupational Therapy Start: 12-13-2021 Registered Recurring BILL OF MATERIALS CLERK-German Clarke BILL OF MATERIALS CLERK Work Phone: [facility]-Occupational Therapy Start: 10-18-2021 End: 10-18-2021 Patient encounter procedure BILL OF MATERIALS CLERK-German Clarke BILL OF MATERIALS CLERK Work Phone: [facility]-Medical Surgical 3 Outp Start: 10-18-2021 Non-patient / Non-visit BILL OF MATERIALS CLERK-German Clarke BILL OF MATERIALS CLERK Work Phone: [facility]-Pulmonary Medicine [facility] Start: 10-14-2021 Registered Referred BILL OF MATERIALS CLERK-German Clarke BILL OF MATERIALS CLERK Work Phone: [facility] Health Start: 10-12-2021 End: 10-12-2021 Patient encounter procedure BILL OF MATERIALS CLERK-German Clarke BILL OF MATERIALS CLERK Work Phone: [facility] Start: 06-11-2018 Patient encounter status BILL OF MATERIALS CLERK-German Clarke BILL OF MATERIALS CLERK Work Phone: [facility] Start: 11-12-1998 End: 11-12-1998 Patient encounter procedure Conversion Yuval Coreas [facility] Start: 11-12-1998 Results Only Conversion Yuval Coreas [facility] Procedures Date Procedure Procedure Detail Performing Clinician Start: 08-20-2023 Colonoscopy BILL OF MATERIALS CLERK-C Maribel Clarke BILL OF MATERIALS CLERK Work Phone: Start: 01-24-2023 Ultrasonography of abdomen Start: 08-24-2022 Screening mammography N P-C Maribel Clarke BILL OF MATERIALS CLERK Work Phone: Start: 02-13-2022 Radionuclide imaging of perfusion of myocardium under exercise stress DESTINY Clarke BILL OF MATERIALS CLERK Work Phone: Start: 12-20-2021 End: 12-21-2021 BP scrn no [...] Phone: Start: 11-12-1998 CONVERTED SURGICAL PATHOLOGY Conversion Yuval Coreas History of operative procedure on knee H/O anterior cruciate ligament surgery BILL OF MATERIALS CLERKAlva Clarke BILL OF MATERIALS CLERK Work Phone: NEGATED: Highlighted rowStart: 12-20-2021 End: 12-20-2021 Documentation of current medications Jessica Raman AT Plan of Treatment Date Care Activity Detail Author Start: 08-20-2023 Colonoscopy flx dx w/collj spec when pfrmd DIAGNOSTIC COLONOSCOPY [facility] Start: 08-20-2023 Patient discharge [facility] Colonoscopy [facility] Lipid 1996 panel - Serum or Plasma [facility] Work Phone: MG Breast - bilatera l Screening [facility] Work Phone: Patient referral [facility] Work Phone: [facility] Work Phone: Immunizations Immunization Date Immunization Notes Care Provider Ncik le 08-02-2023 influenza, injectabl e, quadrivalent, preservative free BILL OF MATERIALS CLERK-C Maribel Clarke BILL OF MATERIALS CLERK Work Phone: [facility] 08-02-2022 influenza, injectabl e, quadrivalent, preservative free BILL OF MATERIALS CLERK-C Maribel Clarke BILL OF MATERIALS CLERK Work Phone: [facility] 08-02-2022 influenza, seasonal, injectable BILL OF MATERIALS CLERK-C Maribel Clarke BILL OF MATERIALS CLERK Work Phone: [facility] 07-20-2021 influenza, injectabl e, quadrivalent, preservative free BILL OF MATERIALS CLERK-C Maribel Clarke BILL OF MATERIALS CLERK Work Phone: [facility] 07-20-2021 influenza, seasonal, injectable BILL OF MATERIALS CLERK-C Maribel Clarke BILL OF MATERIALS CLERK Work Phone: [facility] 11-15-2020 Covid (Moderna) BILL OF MATERIALS CLERK-C Maribel Ri mathew BILL OF MATERIALS CLERK Work Phone: [facility] 10-18-2020 Covid (Moderna) BILL OF MATERIALS CLERK-C Maribel Ri shivaon BILL OF MATERIALS CLERK Work Phone: [facility] 08-19-2020 influenza, injectabl e, quadrivalent, preservative free BILL OF MATERIALS CLERK-C Maribel Clarke BILL OF MATERIALS CLERK Work Phone: [facility] 08-19-2020 influenza, seasonal, injectable BILL OF MATERIALS CLERK-C Maribel Clarke BILL OF MATERIALS CLERK Work Phone: [facility] 08-18-2019 influenza, injectabl e, quadrivalent, preservative free BILL OF MATERIALS CLERK-C Maribel Clarke BILL OF MATERIALS CLERK Work Phone: [facility] 08-18-2019 influenza, seasonal, injectable BILL OF MATERIALS CLERK-C Maribel Clarke BILL OF MATERIALS CLERK Work Phone: [facility] 09-03-2018 influenza, injectabl e, quadrivalent, preservative free BILL OF MATERIALS CLERK-C Maribel Clarke BILL OF MATERIALS CLERK Work Phone: [facility] 09-03-2018 influenza, seasonal, injectable BILL OF MATERIALS CLERK-C Maribel Clarke BILL OF MATERIALS CLERK Work Phone: [facility] 07-30-2017 influenza, injectabl e, quadrivalent, preservative free BILL OF MATERIALS CLERK-C Maribel Clarke BILL OF MATERIALS CLERK Work Phone: [facility] 07-30-2017 influenza, seasonal, injectable BILL OF MATERIALS CLERK-C Maribel Clarke BILL OF MATERIALS CLERK Work Phone: [facility] 07-13-2016 influenza, injectabl e, quadrivalent, preservative free BILL OF MATERIALS CLERK-C Maribel Clarke BILL OF MATERIALS CLERK Work Phone: [facility] 07-13-2016 influenza, seasonal, injectable BILL OF MATERIALS CLERK-C Maribel Lcarke BILL OF MATERIALS CLERK Work Phone: [facility] 07-14-2015 influenza, injectabl e, quadrivalent, preservative free BILL OF MATERIALS CLERK-C Maribel Clarke BILL OF MATERIALS CLERK Work Phone: [facility] 07-14-2015 influenza, seasonal, injectable BILL OF MATERIALS CLERK-C Maribel Clarke BILL OF MATERIALS CLERK Work Phone: [facility] 07-02-2014 influenza, injectabl e, quadrivalent, preservative free BILL OF MATERIALS CLERK-C Maribel Clarke BILL OF MATERIALS CLERK Work Phone: [facility] 07-02-2014 influenza, seasonal, injectable BILL OF MATERIALS CLERK-C Maribel Clarke BILL OF MATERIALS CLERK Work Phone: [facility] Payers Date Payer Category Payer Self-pay [id number] 2024 Unknown [id number] 2015 Unknown [id number] Unknown [id number] 2.16.8 [id number] Unknown [id number] 2.16.8 [id number] Unknown [id number] 2.16.8 [id number] Unknown [id number] 2.16.8 [id number] Unknown [id number] 2.16.8 [id number] Unknown [id number] 2.16.8 [id number] Unknown [id number] 2.16.8 [id number] Unknown [id number] 2.16.8 [id number] Unknown [id number] 2.16.8 [id number] Social History Date Type Detail Facility Tobacco smoking status NHIS Unknown if ever smoked [facility] Sex Assigned At Not on file [facility] Start: 01-11-2022 End: 10-02-2023 Assertion Unknown if ever smoked [facility] Work Phone: Start: 01-23-2020 None [facility] Start: 01-23-2020 Spouse/ Signif icant Other [facility] Start: 01-23-2020 Cigarettes [facility] Start: 1960 Sex Assigned At Female [facility] Start: 10-02-2023 Tobacco smoking status NHIS Never smoked tobacco (finding) [facility] NEGATED: Highlighted rowStart: 12-20-2021 End: 12-20-2021 Employment detail Employment detail [facility] Work Phone: Medical Equipment Procedure Code Equipment Code Equipment Origin al Text Equipment Identifier Dates DRESSING,FIBRILL AR 1X2 1 FDA Start: 09-24-2017 SEALANT,FLOSEAL HEMOSTATIC 5ML FDA Start: 09-24-2017 SUTURE,LIGA CLIP MED LT200 FDA Start: 09-24-2017 SUTURE,LIGA CLIP SM LT-100 FDA Start: 09-24-2017 SUTURE,LIGA CLIP SM LT-100 FDA Start: 09-24-2017 ([id number]) Metal-backed pat terrance prosthesis ()[id number] FDA Start: 07-26-2021 ([id number]) Coated knee femu r prosthesis ()[id number] FDA Start: 07-26-2021 ([id number]) Coated knee tibi a prosthesis ()[id number] FDA Start: 07-26-2021 ([id number]) Tibial insert ()[id number] FDA Start: 07-26-2021 DRESSING,FIBRILL AR 1X2 1 FDA Start: 09-24-2017 SEALANT,FLOSEAL HEMOSTATIC 5ML FDA Start: 09-24-2017 SUTURE,LIGA CLIP MED LT200 FDA Start: 09-24-2017 SUTURE,LIGA CLIP SM LT-100 FDA Start: 09-24-2017 SUTURE,LIGA CLIP SM LT-100 FDA Start: 09-24-2017 DRESSING,FIBRILL AR 1X2 1 FDA Start: 09-24-2017 SEALANT,FLOSEAL HEMOSTATIC 5ML FDA Start: 09-24-2017 SUTURE,LIGA CLIP MED LT200 FDA Start: 09-24-2017 SUTURE,LIGA CLIP SM LT-100 FDA Start: 09-24-2017 SUTURE,LIGA CLIP SM LT-100 FDA Start: 09-24-2017 DRESSING,FIBRILL AR 1X2 1960 FDA Start: 09-24-2017 SEALANT,FLOSEAL HEMOSTATIC 5ML FDA Start: 09-24-2017 SUTURE,LIGA CLIP MED LT200 FDA Start: 09-24-2017 SUTURE,LIGA CLIP SM LT-100 FDA Start: 09-24-2017 SUTURE,LIGA CLIP SM LT-100 FDA Start: 09-24-2017 DRESSING,FIBRILL AR 1X2 1960 FDA Start: 09-24-2017 SEALANT,FLOSEAL HEMOSTATIC 5ML FDA Start: 09-24-2017 SUTURE,LIGA CLIP MED LT200 FDA Start: 09-24-2017 SUTURE,LIGA CLIP SM LT-100 FDA Start: 09-24-2017 SUTURE,LIGA CLIP SM LT-100 FDA Start: 09-24-2017 DRESSING,FIBRILL AR 1X2 1960 FDA Start: 09-24-2017 SEALANT,FLOSEAL HEMOSTATIC 5ML FDA Start: 09-24-2017 SUTURE,LIGA CLIP MED LT200 FDA Start: 09-24-2017 SUTURE,LIGA CLIP SM LT-100 FDA Start: 09-24-2017 SUTURE,LIGA CLIP SM LT-100 FDA Start: 09-24-2017 DRESSING,FIBRILL AR 1X2 1960 FDA Start: 09-24-2017 SEALANT,FLOSEAL HEMOSTATIC 5ML FDA Start: 09-24-2017 SUTURE,LIGA CLIP MED LT200 FDA Start: 09-24-2017 SUTURE,LIGA CLIP SM LT-100 FDA Start: 09-24-2017 SUTURE,LIGA CLIP SM LT-100 FDA Start: 09-24-2017 DRESSING,FIBRILL AR 1X2 1960 FDA Start: 09-24-2017 SEALANT,FLOSEAL HEMOSTATIC 5ML FDA Start: 09-24-2017 SUTURE,LIGA CLIP MED LT200 FDA Start: 09-24-2017 SUTURE,LIGA CLIP SM LT-100 FDA Start: 09-24-2017 SUTURE,LIGA CLIP SM LT-100 FDA Start: 09-24-2017 DRESSING,FIBRILL AR 1X2 1960 FDA Start: 09-24-2017 SEALANT,FLOSEAL HEMOSTATIC 5ML FDA Start: 09-24-2017 SUTURE,LIGA CLIP MED LT200 FDA Start: 09-24-2017 SUTURE,LIGA CLIP SM LT-100 FDA Start: 09-24-2017 SUTURE,LIGA CLIP SM LT-100 FDA Start: 09-24-2017 DRESSING,FIBRILL AR 1X2 1960 FDA Start: 09-24-2017 SEALANT,FLOSEAL HEMOSTATIC 5ML FDA Start: 09-24-2017 SUTURE,LIGA CLIP MED LT200 FDA Start: 09-24-2017 SUTURE,LIGA CLIP SM LT-100 FDA Start: 09-24-2017 SUTURE,LIGA CLIP SM LT-100 FDA Start: 09-24-2017 DRESSING,FIBRILL AR 1X2 1960 FDA Start: 09-24-2017 SEALANT,FLOSEAL HEMOSTATIC 5ML FDA Start: 09-24-2017 SUTURE,LIGA CLIP MED LT200 FDA Start: 09-24-2017 SUTURE,LIGA CLIP SM LT-100 FDA Start: 09-24-2017 SUTURE,LIGA CLIP SM LT-100 FDA Start: 09-24-2017 Goals Date Patient Goal Desired Activity /State Mental Status Date Assessment Result Facility 08-20-2023 Cognitive function Voice/Name [facility] Work Phone: 10-18-2021 Cognitive function Awake;Alert;A ppropriate;Fol lows Commands [facility] Work Phone: Clinical Notes 08-20-2023 to 02-11-2025 Note Date & Type Note Facility 02-11-2025 Evaluation note Diagnosis Onset Date Resolution Hypothyroidism acute January 2:52pm LLQ pain acute February 11 2:52pm Pre-diabetes acute February 11, 2025 2:52pm GERD (gastroesophageal reflux disease) chronic February 11, 2025 2:52pm Hypothyroidism (acquired) chronic March 12, 2025 7:26pm [facility] Work Phone: 1(320) 336-844011-06-2023 Procedure [facility]-20-2023 [facility] note[facility] may be information available, but it has not been provided by the sender.[facility] Work Phone: Evaluation note* Diagnosis Onset Date Resolution Status Orthopedic aftercare resolve d Hyperlipemia acute SOB (shortness of breath) ac [place] Hypothyroidism (acquired) ch ronic Chest pain acute Essential hypertension acute Hyperlipemia acute SOB (shortness of breath) ac [place] Tachycardia acute [facility] Work Phone: Evaluation note* Diagnosis Onset Date Resolution Status Hyperlipemia acute SOB (shortness of breath) ac [place] Hypothyroidism (acquired) ch ronic Chest pain acute Essential hypertension acute Hyperlipemia acute SOB (shortness of breath) [place] Tachycardia acute [facility] Work Phone: Evaluation note* Diagnosis Onset Date Resolution Status LASHELL (obstructive sleep apnea) acute BMI 30.0-30.9,adult chronic Essential hypertension acute Hyperlipemia acute Tachycardia acute Wellness examination acute [facility] Work Phone: Evaluation note* Diagnosis Onset Date Resolution Status Essential hypertension acute Hyperlipemia acute RUQ abdominal pain acute Hypothyroidism (acquired) [facility] Work Phone: Evaluation note* Diagnosis Onset Date Resolution Status Atopic eczema acute Pruritic rash acute LASHELL (obstructive sleep apnea) acute BMI 30.0-30.9,adult chronic [facility] Work Phone: Evaluation note* Diagnosis Onset Date Resolution Status LASHELL (obstructive sleep apnea) acute BMI 30.0-30.9,adult chronic Encounter for screening for malignant neoplasm of colo n acute [facility] Work Phone: Evaluation note* Diagnosis Onset Date Resolution Status Encounter for screening for malignant neoplasm of colon acute Bronchitis acute Bilateral acute otitis media resolved Essential hypertension acute Hyperlipemia acute Tachycardia acute [facility] Work Phone: Evaluation note* Diagnosis Onset Date Resolution Status Essential hypertension acute Hyperlipemia acute Tachycardia acute Essential hypertension acute Hypothyroidism (acquired) [facility] Work Phone: History and physical note Author Gama Cortez [facility] August 20, 2023 1:16pm Note Date/Time August 20, 2023 1 :16pm [facility] Medical Records Department [address] [place] [address] History & Physical Exam 08/20/23 1316 MR#: [id number] Acct: [id number] Name: DANIEL WHITE Rep #:[id number] : 1960 62 From: Gama baker MD PCP: DESTINY Powers Status:[facility] Location: [place] [address] HPI - General HPI Narrative DANIEL WHITE, is a 62 F who presents for screening colonoscopy. She reports herlast colonoscopy was 10 years ago. She reports no abdominal pain or blood in stool. She does not have a family history of colon cancer. [facility]LY [facility], [facility] Medical History (Updated 08/16/23 @ 15:57 by Dorcas Purdy) Alcohol use Asthma Back pain Bilateral carotid bruits BiPAP (biphasic positive airway pressure) dependence Cardiology follow-up encounter COVID-19 (10/18/21) Depression Essential hypertension Factor 5 Leiden mutation, heterozygous Fatigue Fatty liver Fibromyalgia GERD (gastroesophageal reflux disease) Goiter diffuse, adenomatous Hay fever Heartburn High cholesterol History of echocardiogram History of irregular heartbeat History of pain when walking History of stress test Hydronephrosis Injury of head and neck Insomnia disorder Knee pain Left ureteral calculus Migraine headache Non-smoker PONV (postoperative nausea and vomiting) Seasonal affective disorder Seasonal allergies Sleep apnea Stress incontinence in female Thyroid disease Wears glasses Home Medications cetirizine 10 mg capsule (Zyrtec) 10 mg PO DAILY PRN allergies 07/12/21 [History Last Taken Unknown] levothyroxine 100 mcg tablet 88 mcg PO QDAY 05/23/23 [History Last Taken 08/20/23] albuterol sulfate 90 mcg/actuation aerosol inhaler (Ventolin HFA) 2 puff inhalation Q4H PRN sob 3 months #18 grams 07/10/23 [Rx Last Taken Unknown] atorvastatin 40 mg tablet 40 mg PO DAILY #90 tabs 07/10/23 [Rx Last Taken Unknown] duloxetine 60 mg capsule,delayed release 60 mg PO QHS #90 caps 07/10/23 [Rx Last Taken Unknown] fesoterodine 8 mg tablet,extended release 24 hr (Toviaz) 8 mg PO DAILY BLADDER #90 tabs 07/10/23 [Rx Last Taken Unknown] hydrochlorothiazide 12.5 mg capsule 12.5 mg PO DAILY #90 caps 07/10/23 [Rx Last Taken Unknown] lisinopril 10 mg tablet 10 mg PO DAILY #90 tabs 07/10/23 [Rx Last Taken 08/20/23] B complex 11-folic acid 1 mg-C 100 mg-biotin 300 mcg-zinc 50 mg tablet 1 tab PO DAILY 08/16/23 [History Last Taken Unknown] cholecalciferol (vitamin D3) 50 mcg (2,000 unit) capsule (D3-2000) 50 mcg PO DAILY 08/16/23 [History Last Taken Unknown] multivitamin 1 tab PO DAILY 08/16/23 [History Last Taken Unknown] vitamin E 450 mg PO DAILY 08/16/23 [History Last Taken Unknown] Allergy/AdvReac Type Severity Reaction Status Date / Time adhesive tape Allergy blisters Verified 08/20/23 12:51 animal dander Allergy Other Verified 08/20/23 12:51 cefdinir Allergy RASH Verified 08/20/23 12:51 Environmental Allergies: Allergy NEEDS Verified 08/20/23 12:51 Uncoded FOLLOW-UP Food Allergies: Uncoded Allergy Shortness Verified 08/20/23 12:51 of breath Penicillins Allergy Hives Verified 08/20/23 12:51 Sulfa (Sulfonamide Allergy Hives Verified 08/20/23 12:51 Antibiotics) tetracycline [Tetracycline] Allergy Hives Verified 08/20/23 12:51 Family History (Updated 08/14/23 @ 09:16 by Clara Bain) Sister Breast cancer Cancer Diabetes Endometriosis Hypertension Thyroid disorder liver disease early 61 developing liver failure Aunt Breast cancer Cancer Diabetes Heart disease Hypertension Kidney disease kidney failure and on dialysis also diabetic Father CAD (coronary artery disease) Cancer Diabetes Heart disease Hypertension Myocardial infarction liver disease hepatobiliary failure Grandfather CAD (coronary artery disease) Diabetes Heart disease Hypertension Myocardial infarction Sudden cardiac Grandmother CVA (cerebral vascular accident) Diabetes Heart disease Hypertension Mother Cancer Diabetes Heart disease Hypertension Thyroid disorder lupus Colon polyps Brother Diabetes Heart disease Hypertension Kidney disease diabetic only one working kidney and it is working only 30 % Daughter lupus Surgical History (Updated 08/16/23 @ 15:45 by Dorcas Pudry) H/O lithotripsy History of section, classical History of cholecystectomy History of dilatation and curettage History of lumbar fusion History of repair of ACL History of thumb surgery History of thyroidectomy History of total knee arthroplasty Hx of colonoscopy Social History (Updated 08/14/23 @ 09:22 by Clara Bain) household members: spouse and children housing: house current occupational status: employed Smoking Status: Never smoker alcohol intake: current details: socially substance use type: does not use what type of physical activity do you participate in: walking frequency: 1-2 times per week do you feel safe at home: Yes Past Medical/Surgical History Planned Operation Planned Operative Procedure/s: COLONOSCOPY S.O.S: No Previous Hospitalizations/Surgeries HX Hospitalizations: No HX of Surgeries: right knee surgery lower back surgery left hand surgery Any Problems With Anesthesia: Yes (PONV, DIFFICULT TO AWAKE) You/Your Family Experience Fever (Hyperthermia) With Anes: No Cholinesterase deficiency: No Cardiovascular Hx Chest Pain within Last 2 months: No Hx of Irregular Heartbeat and/or Afib: No (heart murmur) Hx Heart Attack: No Hx Congestive Heart Failure: No Hx Rheumatic Fever: No Hx Hypertension: Yes (PER PT, CONTROLLED ON MEDS) Hx Internal Defibrillator: No Hx Pacemaker: No Hx Cardiac Catheterization: No Hx Cardiac Surgery/Stents/Etc.: No Hx Stress Test: Yes (STRESS 2008. STATES NEG/echo 2009) Hx Pain in Legs when Walking/Leg Cramps: No Respiratory Chronic Cough: No HX of Shortness of Breath: No Hoarseness: No Hx Chronic Obstructive Pulmonary Disease (COPD): No Hx Asthma: Yes (EXERCISE OR ALLERGY INDUCED. USES INHALER PRN) Hx Emphysema: No Hx Sleep Apnea: Yes CPAP: No BIPAP: Yes Hx Respiratory Tract Infection/Cold (presently): No Result (for STOP score): Positive Hx Smoking: No Smoking Status: Never smoker Gastrointestinal Hx Gastroesophageal Reflux: No (patient states resolved) Controlled With Meds: No (no meds) Hx Gastrointestinal Disorders: No Hx Gastrointestinal Bleed: No Hx Ulcer: No Hx Hiatal Hernia: No Difficulty Chewing/Swallowing: No Special diet followed at home: No Hx Unplanned Weight Loss of 20#: No HX Unplanned Weight Gain of 20#: No Neurological Hx Seizures: No HX Syncope/Blackout Spells/Unconsciousness: No Hx Transient Ischemic Attacks (TIA): No Hx Multiple Sclerosis: No Hx Parkinson's Disease: No Hx Head/Neck Injury: Yes (PLAYED SPORTS. HAD MILD HEAD INJURIES TEEN) Hx Headaches: No Hx Back Injury/Pain: Yes (spinal stenosis and had back fusion l3-5) Recent Onset of Speech Difficulty: No Restless Legs: No Does patient have nerve stimulator: No Blood Disorder Hx Leukemia: No Bleeding Tendencies: No Hx Deep Vein Thrombosis: No Hx High Cholesterol: Yes (ON MED) Blood Transmitted Disease: No Hx Hepatitis: No Hx Cirrhosis: No Hx Anemia: No Hx Blood Disorders: No Reproduction Is Patient Lactating: No Hx Hysterectomy: No Hx Tubal Ligation: No (HAD UTERINE ABLATION 2003) Are You Post Menopause: Yes Genitourinary Hx Renal Disease: Yes (stones) Hx Dialysis: No Musculoskeletal Hx Arthritis: Yes Hx Rheumatoid Arthritis: No Hx Gout: No Recent Onset of an Orthopedic Problem: No Endocrine Hx Diabetes: No Thyroid Disease: Yes Hx Steroid Therapy: No Psycho/Social Hx Substance Use: No Hx Alcohol Use: Yes (occ) Hx Anxiety: No Hx Depression: No Mental Illness: No Hx Dementia: No Miscellaneous Hx Cancer: No Recent Exposure to Contagious Disease: No Hx of C-Diff: No Any Loose Teeth: No Allergies adhesive tape Allergy (Verified 08/20/23 12:51) blisters animal dander Allergy (Verified 08/20/23 12:51) Other cefdinir Allergy (Verified 08/20/23 12:51) RASH Environmental Allergies: Uncoded Allergy (Verified 08/20/23 12:51) NEEDS FOLLOW-UP Food Allergies: Uncoded Allergy (Verified 08/20/23 12:51) Shortness of breath CERTAIN BEERS: NOT ALL BEERS OR ALCOHOL. Penicillins Allergy (Verified 08/20/23 12:51) Hives Sulfa (Sulfonamide Antibiotics) Allergy (Verified 08/20/23 12:51) Hives tetracycline [Tetracycline] Allergy (Verified 08/20/23 12:51) Hives Discharge Is Pt Admitted From a Senior Living, or a Mcc: No Who Could Help: FAMILY After D/C, Where Do you Plan to Go: Return Home Vital Signs Vital Signs Vital Signs: 08/20/23 12:52 11 12:52 Temperature 97.6 F L Temperature Source Temporal Pulse Rate 99 Respiratory Rate 16 Respiratory Pattern Normal Blood Pressure 127/90 H Blood Pressure Mean 102 Blood Pressure Source Monitor Blood Pressure Position Semi-Fowlers Blood Pressure Location Left Arm Pulse Ox 96 Oxygen Delivery Method Room Air Weight Weight: 147 lb 11.355 oz Body Mass Index (BMI) 30.9 Surgery Risks - Colonoscopy Risks Include but are not Limited To: Risks include but are not limited to: Bleeding, perforation requiring further surgery, inability to complete colonoscopy requiring barium enema. 08/20/236 <Electronically signed by Gama Cortez MD> Cosigner Signature (if applicable): CC: DESTINY Clarke; Dr. Gama Cortez MD~ Signed [facility] Work Phone: History and physical note Author Gama Cortez [facility] August 20, 2023 1:17pm Note Date/Time August 20, 2023 1 :17pm [facility] Medical Records Department [address] [place] [address] History & Physical Exam 08/20/23 1317 MR#: [id number] Acct: [id number] Name: CINDYDANIEL BRASHER Rep #:[id number] : 1960 62 From: Gama baker MD PCP: DESTINY Powers Status:[facility] Location: [place] [address] HPI - General HPI Narrative DANIEL WHITE, is a 62 F who presents for screening colonoscopy. Her last colonoscopy was over 10 years ago. She reports no abdominal pain or blood in the stool. She has no family history of colon cancer. FORMERLY [facility], [facility] Medical History (Updated 08/16/23 @ 15:57 by Dorcas Purdy) Alcohol use Asthma Back pain Bilateral carotid bruits BiPAP (biphasic positive airway pressure) dependence Cardiology follow-up encounter COVID-19 (10/18/21) Depression Essential hypertension Factor 5 Leiden mutation, heterozygous Fatigue Fatty liver Fibromyalgia GERD (gastroesophageal reflux disease) Goiter diffuse, adenomatous Hay fever Heartburn High cholesterol History of echocardiogram History of irregular heartbeat History of pain when walking History of stress test Hydronephrosis Injury of head and neck Insomnia disorder Knee pain Left ureteral calculus Migraine headache Non-smoker PONV (postoperative nausea and vomiting) Seasonal affective disorder Seasonal allergies Sleep apnea Stress incontinence in female Thyroid disease Wears glasses Home Medications cetirizine 10 mg capsule (Zyrtec) 10 mg PO DAILY PRN allergies 07/12/21 [History Last Taken Unknown] levothyroxine 100 mcg tablet 88 mcg PO QDAY 05/23/23 [History Last Taken 08/20/23] albuterol sulfate 90 mcg/actuation aerosol inhaler (Ventolin HFA) 2 puff inhalation Q4H PRN sob 3 months #18 grams 07/10/23 [Rx Last Taken Unknown] atorvastatin 40 mg tablet 40 mg PO DAILY #90 tabs 07/10/23 [Rx Last Taken Unknown] duloxetine 60 mg capsule,delayed release 60 mg PO QHS #90 caps 07/10/23 [Rx Last Taken Unknown] fesoterodine 8 mg tablet,extended release 24 hr (Toviaz) 8 mg PO DAILY BLADDER #90 tabs 07/10/23 [Rx Last Taken Unknown] hydrochlorothiazide 12.5 mg capsule 12.5 mg PO DAILY #90 caps 07/10/23 [Rx Last Taken Unknown] lisinopril 10 mg tablet 10 mg PO DAILY #90 tabs 07/10/23 [Rx Last Taken 08/20/23] B complex 11-folic acid 1 mg-C 100 mg-biotin 300 mcg-zinc 50 mg tablet 1 tab PO DAILY 08/16/23 [History Last Taken Unknown] cholecalciferol (vitamin D3) 50 mcg (2,000 unit) capsule (D32000) 50 mcg PO DAILY 08/16/23 [History Last Taken Unknown] multivitamin 1 tab PO DAILY 08/16/23 [History Last Taken Unknown] vitamin E 450 mg PO DAILY 08/16/23 [History Last Taken Unknown] Allergy/AdvReac Type Severity Reaction Status Date / Time adhesive tape Allergy blisters Verified 08/20/23 12:51 animal dander Allergy Other Verified 08/20/23 12:51 cefdinir Allergy RASH Verified 08/20/23 12:51 Environmental Allergies: Allergy NEEDS Verified 08/20/23 12:51 Uncoded FOLLOW-UP Food Allergies: Uncoded Allergy Shortness Verified 08/20/23 12:51 of breath Penicillins Allergy Hives Verified 08/20/23 12:51 Sulfa (Sulfonamide Allergy Hives Verified 08/20/23 12:51 Antibiotics) tetracycline [Tetracycline] Allergy Hives Verified 08/20/23 12:51 Family History (Updated 08/14/23 @ 09:16 by Clara Bain) Sister Breast cancer Cancer Diabetes Endometriosis Hypertension Thyroid disorder liver disease early 60 developing liver failure Aunt Breast cancer Cancer Diabetes Heart disease Hypertension Kidney disease kidney failure and on dialysis also diabetic Father CAD (coronary artery disease) Cancer Diabetes Heart disease Hypertension Myocardial infarction liver disease hepatobiliary failure Grandfather CAD (coronary artery disease) Diabetes Heart disease Hypertension Myocardial infarction Sudden cardiac Grandmother CVA (cerebral vascular accident) Diabetes Heart disease Hypertension Mother Cancer Diabetes Heart disease Hypertension Thyroid disorder lupus Colon polyps Brother Diabetes Heart disease Hypertension Kidney disease diabetic only one working kidney and it is working only 30 % Daughter lupus Surgical History (Updated 08/16/23 @ 15:45 by Dorcas Purdy) H/O lithotripsy History of section, classical History of cholecystectomy History of dilatation and curettage History of lumbar fusion History of repair of ACL History of thumb surgery History of thyroidectomy History of total knee arthroplasty Hx of colonoscopy Social History (Updated 08/14/23 @ 09:22 by Clara Bain) household members: spouse and children housing: house current occupational status: employed Smoking Status: Never smoker alcohol intake: current details: socially substance use type: does not use what type of physical activity do you participate in: walking frequency: 1-2 times per week do you feel safe at home: Yes Past Medical/Surgical History Planned Operation Planned Operative Procedure/s: COLONOSCOPY S.O.S: No Previous Hospitalizations/Surgeries HX Hospitalizations: No HX of Surgeries: right knee surgery lower back surgery left hand surgery Any Problems With Anesthesia: Yes (PONV, DIFFICULT TO AWAKE) You/Your Family Experience Fever (Hyperthermia) With Anes: No Cholinesterase deficiency: No Cardiovascular Hx Chest Pain within Last 2 months: No Hx of Irregular Heartbeat and/or Afib: No (heart murmur) Hx Heart Attack: No Hx Congestive Heart Failure: No Hx Rheumatic Fever: No Hx Hypertension: Yes (PER PT, CONTROLLED ON MEDS) Hx Internal Defibrillator: No Hx Pacemaker: No Hx Cardiac Catheterization: No Hx Cardiac Surgery/Stents/Etc.: No Hx Stress Test: Yes (STRESS 2008. STATES NEG/echo 2009) Hx Pain in Legs when Walking/Leg Cramps: No Respiratory Chronic Cough: No HX of Shortness of Breath: No Hoarseness: No Hx Chronic Obstructive Pulmonary Disease (COPD): No Hx Asthma: Yes (EXERCISE OR ALLERGY INDUCED. USES INHALER PRN) Hx Emphysema: No Hx Sleep Apnea: Yes CPAP: No BIPAP: Yes Hx Respiratory Tract Infection/Cold (presently): No Result (for STOP score): Positive Hx Smoking: No Smoking Status: Never smoker Gastrointestinal Hx Gastroesophageal Reflux: No (patient states resolved) Controlled With Meds: No (no meds) Hx Gastrointestinal Disorders: No Hx Gastrointestinal Bleed: No Hx Ulcer: No Hx Hiatal Hernia: No Difficulty Chewing/Swallowing: No Special diet followed at home: No Hx Unplanned Weight Loss of 20#: No HX Unplanned Weight Gain of 20#: No Neurological Hx Seizures: No HX Syncope/Blackout Spells/Unconsciousness: No Hx Transient Ischemic Attacks (TIA): No Hx Multiple Sclerosis: No Hx Parkinson's Disease: No Hx Head/Neck Injury: Yes (PLAYED SPORTS. HAD MILD HEAD INJURIES TEEN) Hx Headaches: No Hx Back Injury/Pain: Yes (spinal stenosis and had back fusion l3-5) Recent Onset of Speech Difficulty: No Restless Legs: No Does patient have nerve stimulator: No Blood Disorder Hx Leukemia: No Bleeding Tendencies: No Hx Deep Vein Thrombosis: No Hx High Cholesterol: Yes (ON MED) Blood Transmitted Disease: No Hx Hepatitis: No Hx Cirrhosis: No Hx Anemia: No Hx Blood Disorders: No Reproduction Is Patient Lactating: No Hx Hysterectomy: No Hx Tubal Ligation: No (HAD UTERINE ABLATION 2003) Are You Post Menopause: Yes Genitourinary Hx Renal Disease: Yes (stones) Hx Dialysis: No Musculoskeletal Hx Arthritis: Yes Hx Rheumatoid Arthritis: No Hx Gout: No Recent Onset of an Orthopedic Problem: No Endocrine Hx Diabetes: No Thyroid Disease: Yes Hx Steroid Therapy: No Psycho/Social Hx Substance Use: No Hx Alcohol Use: Yes (occ) Hx Anxiety: No Hx Depression: No Mental Illness: No Hx Dementia: No Miscellaneous Hx Cancer: No Recent Exposure to Contagious Disease: No Hx of C-Diff: No Any Loose Teeth: No Allergies adhesive tape Allergy (Verified 08/20/23 12:51) blisters animal dander Allergy (Verified 08/20/23 12:51) Other cefdinir Allergy (Verified 08/20/23 12:51) RASH Environmental Allergies: Uncoded Allergy (Verified 08/20/23 12:51) NEEDS FOLLOW-UP Food Allergies: Uncoded Allergy (Verified 08/20/23 12:51) Shortness of breath CERTAIN BEERS: NOT ALL BEERS OR ALCOHOL. Penicillins Allergy (Verified 08/20/23 12:51) Hives Sulfa (Sulfonamide Antibiotics) Allergy (Verified 08/20/23 12:51) Hives tetracycline [Tetracycline] Allergy (Verified 08/20/23 12:51) Hives Discharge Is Pt Admitted From a Senior Living, or a Mcc: No Who Could Help: FAMILY After D/C, Where Do you Plan to Go: Return Home Vital Signs Vital Signs Vital Signs: 08/20/23 12:52 08/20/23 12:52 Temperature 97.6 F L Temperature Source Temporal Pulse Rate 99 Respiratory Rate 16 Respiratory Pattern Normal Blood Pressure 127/90 H Blood Pressure Mean 102 Blood Pressure Source Monitor Blood Pressure Position Semi-Fowlers Blood Pressure Location Left Arm Pulse Ox 96 Oxygen Delivery Method Room Air Weight Weight: 147 lb 11.355 oz Body Mass Index (BMI) 30.9 Physical Exam Const alert and oriented x3 HEENT normocephalic Eyes PERRL Resp normal respiratory effort and normal air movement Cardio regular rate and regular rhythm GI soft to palpation, non-tender and non-distended Extremity normal to inspection Assessment & Plan Assessment/Plan (1) Encounter for screening for malignant neoplasm of colon: PLAN: I explained endoscopy in detail to the patient. I explained the risks including but not limited to stroke or heart attack with anesthesia, perforation of the GI tract, bleeding, infection. I explained that any of these could necessitate further emergency surgery. The patient understands and all questions were answered sufficiently. The patient wishes to proceed with procedure. Gama Cortez MD Pager: [facility] [address] [place] [address], [address] [place] [address] Office: Surgery Risks - Colonoscopy Risks Include but are not Limited To: Risks include but are not limited to: Bleeding, perforation requiring further surgery, inability to complete colonoscopy requiring barium enema. 08/20/23 1317 <Electronically signed by Gama Cortez MD> Cosigner Signature (if applicable): CC: DESTINY Clarke; Dr. Gama Cortez MD~ Signed [facility] Work Phone: Instructions* Instruction Description Start Date Completed [facility] Work Phone: Reason for referral (narrative)No reason for referral information [facility] Work Phone: Chief Complaint Chief Complaint Description Start Date left hand post CARPOMETACARP AL ARTHROPLASTY LEFT THUMB; POSSIBLE RELEASE TRIGGER LEFT MIDDLE FINGER; INJECTION RIGHT CARPAL TUNNEL; EXCISION CUTANEOUS MASS LEFT PALM on 09/26/2021 Preliminary chief co mplaint data, not yet signed by the author as of Advance Directives No Advanced Directives Records Found Advance Directive Response Recorded Date/ Time Advance Directives No January 09, 022 2:33pm Living Will Yes January 09, 2022 2:33pm Power of Engine Tester Yes January 09 2:33pm Advance Directive Response Recorded Date/ Time Advance Directives No January 09, 2 022 1:33pm Living Will Yes January 09, 2022 1:33pm Power of Engine Tester Yes January 09 1:33pm Advance Directive Response Recorded Date/ Time Advance Directives No June 5:38pm Living Will Yes July 10, 2023 5:38pm Power of Engine Tester Yes June 5:38pm Advance Directive Response Recorded Date/ Time Name of Medical Power of Engine Tester SPOUSE BRANDY WEBB August 16, 2023 2:45pm Advance Directives No June 4:38pm Living Will Yes August 16 2:45pm Power of Engine Tester Yes August 16, 2023 2:45pm Advance Directive Response Recorded Date/ Time Advance Directives No June 5:38pm Living Will Yes August 16 3:45pm Power of Engine Tester Yes August 16, 2023 3:45pm Advance Directive Response Recorded Date/ Time Advance Directives No June 5:38pm Family History No Family History Records Found Relationship Condition Age at Onset Recorded Date/T suzanne sister Malignant neoplasm of breast Unknown Malignant neoplasm Unknown Diabetes mellitus Unknown Endometriosis Unknown Hypertension Unknown Disorder of thyroid Unknown early 61 developing liver failure Unknown aunt Malignant neoplasm of breast Unknown Cardiac disease Unknown Kidney disorder Unknown father Coronary artery disease Unknown Myocardial infarction Unknown hepatobiliary failure Unknown grandfather Coronary artery disease Unknown Sudden cardiac Unknown grandmother Cerebrovascular accident (CVA) Unknown mother Malignant neoplasm Unknown Unknown brother Diabetes mellitus Unknown daughter Unknown Relationship Condition Age at Onset Recorded Date/T suzanne sister Malignant neoplasm of breast Unknown Malignant neoplasm Unknown Diabetes mellitus Unknown Endometriosis Unknown Hypertension Unknown Disorder of thyroid Unknown early 61 developing liver failure Unknown aunt Malignant neoplasm of breast Unknown Cardiac disease Unknown Kidney disorder Unknown father Coronary artery disease Unknown Myocardial infarction Unknown hepatobiliary failure Unknown grandfather Coronary artery disease Unknown Sudden cardiac Unknown grandmother Cerebrovascular accident (CVA) Unknown mother Malignant neoplasm Unknown Unknown Polyp of colon Unknown brother Diabetes mellitus Unknown daughter Unknown Chief Complaint and Reason for Visit Chief Complaint RIGHT KNEE Amb Documentation COVID POS LT WRIST/ PT BRING RX medication refills & fatigue FAMILY HX, PAIN GOING DOWN ARM. E ORDER Reason for Visit Orthopedic aftercare Hyperlipemia SOB (shortness of breath) Hypothyroidism (acquired) Chest pain Essential hypertension Hyperlipemia SOB (shortness of breath) Tachycardia Chief Complaint LT WRIST/ PT BRING R X medication refills & fatigue FAMILY HX, PAIN GOING DOWN ARM. 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 Annual wellness exam PE SCREEENING Reason for Visit LASHELL (obstructive sle ep apnea) BMI 30.0-30.9,adult Essential hypertension Hyperlipemia Tachycardia Wellness examination Chief Complaint medication refills & upper (R) SIDE PAIN RUQ PAIN Reason for Visit Essential hypertensi on Hyperlipemia RUQ abdominal pain Hypothyroidism (acquired) Chief Complaint Rash got worse 1 Y FU Annual wellness exam PE Reason for Visit Atopic eczema Pruritic rash LASHELL (obstructive sleep apnea) BMI 30.0-30.9,adult Chief Complaint 1 Y FU Annual wellness exam PE Amb Documentation Reason for Visit LASHELL (obstructive sle ep apnea) BMI 30.0-30.9,adult Encounter for screening for malignant neoplasm of colon Chief Complaint Annual wellness exam PE Amb Documentation Cough 1 Y FU EORDER Cough Tachycardia, unspecified Reason for Visit Encounter for screen ing for malignant neoplasm of colon Bronchitis Bilateral acute otitis media Essential hypertension Hyperlipemia Tachycardia Chief Complaint 1 Y FU EORDER Cough Tachycardia, unspecified medication refills Reason for Visit Essential hypertensi on Hyperlipemia Tachycardia Essential hypertension Hypothyroidism (acquired) Chief Complaint Admit Date medication refills/Labs February 11, 2025 2:52pm EORDER February 12, 2025 9:36am Lab draw TSH March 12, 2025 7:26p m Reason for Visit Admit Date Hypothyroidism February 11, 2025 2:5 2pm LLQ pain February 11, 2025 2:5 2pm Pre-diabetes February 11, 2025 2:5 2pm GERD (gastroesophageal reflux disease) A pril 2024 2:52pm Hypothyroidism (acquired) March 12, 2025 7:26pm Summary Purpose Additional Source Comments Source Comments (unrecognize d section and content) In the event this informatio n is protected by the Federal Confidentiality of Alcohol and Drug Abuse Patient Records regulations: The Federal rules restrict any use of the information to criminally investigate or prosecute any alcohol or drug abuse patient.[facility] Reason for Visit (unrecogniz ed section and content) Reason For Visit Description Postop - subsequent visit Preliminary reason f or visit data, not yet signed by the author as of left hand post CARPOMETACARP AL ARTHROPLASTY LEFT THUMB; POSSIBLE RELEASE TRIGGER LEFT MIDDLE FINGER; INJECTION RIGHT CARPAL TUNNEL; EXCISION CUTANEOUS MASS LEFT PALM on 09/26/2021 Goals (unrecognized section and content) Goals may be documented in a n alternate sectionGoals may be documented in an alternate sectionGoals may be documented in an alternate sectionGoals may be documented in an alternate sectionGoals may be documented in an alternate sectionGoals may be documented in an alternate sectionGoals may be documented in an alternate sectionGoals may be documented in an alternate sectionGoals may be documented in an alternate section Care Teams (unrecognized sec tion and content) Team Status: Active Member Role Status Dates Maribel Clarke BILL OF MATERIALS CLERK, BILL OF MATERIALS CLERK-C Family Provider Active Maribel Clarke BILL OF MATERIALS CLERK, BILL OF MATERIALS CLERK-C Primary Care Provider Active Team Status: Inactive Member Role Status Dates Maribel Clarke NP, BILL OF MATERIALS CLERK-C Primary Care Pr ovider, Attending Provider, Referring Provider Active Team Status: Inactive Member Role Status Dates Maribel Clarke BILL OF MATERIALS CLERK, BILL OF MATERIALS CLERK-C Primary Care Provider, Attend ing Provider Active Team Status: Inactive Member Role Status Dates Maribel Clarke NP, BILL OF MATERIALS CLERK-C Primary Care Provider, Referr ing Provider Active Dr. Jermaine Gilmore MD Attending Provider Active Team Status: Active Member Role Status Dates Maribel Clarke BILL OF MATERIALS CLERK, BILL OF MATERIALS CLERK-C Primary Care Provider Active Health Risk Assessment Attending Provider Active Team Status: Active Member Role Status Dates Maribel Clarke NP, BILL OF MATERIALS CLERK-C Primary Care Provider Active [facility] Attending Provider Active Team Status: Active Member Role Status Dates Maribel Clarke NP, BILL OF MATERIALS CLERK-C Primary Care Provider, Referr ing Provider Active Dr. Gama Cortez MD Attending Provider, Other Provider Active Team Status: Inactive Member Role Status Dates Maribel Clarke NP, BILL OF MATERIALS CLERK-C Primary Care Provider, Referr ing Provider Active Dr. Gama Cortez MD Attending Provider Active Team Status: Inactive Member Role Status Dates Maribel Clarke NP, BILL OF MATERIALS CLERK-C Primary Care Provider, Referr ing Provider Active Dr. Dorian Folrentino MD Attending Provider Active Team Status: Inactive Member Role Status Dates Maribel Clarke BILL OF MATERIALS CLERK, BILL OF MATERIALS CLERK-C Primary Care Provider Active Jerald Dillard PA, PA Attending Provider Active Team Status: Inactive Member Role Status Dates Maribel Clarke BILL OF MATERIALS CLERK, BILL OF MATERIALS CLERK-C Primary Care Provider Active Dr. Dorian Florentino MD Attending Provider, Referring Pro vider Active Team Status: Inactive Member Role Status Dates Mariebl Vince BILL OF MATERIALS CLERK, BILL OF MATERIALS CLERK-C Primary Care Provider Active Start: February 11, 2025 End: February 11, 2025 Maribelbeatris Clarke BILL OF MATERIALS CLERK, BILL OF MATERIALS CLERK-C Attending Provider Active Start: February 11, 2025 End: February 11, 2025 Maribel Clarke BILL OF MATERIALS CLERK, BILL OF MATERIALS CLERK-C Referring Provider Active Start: February 11, 2025 End: February 11, 2025 Team Status: Inactive Member Role Status Dates Maribel Vince BILL OF MATERIALS CLERK, BILL OF MATERIALS CLERK-C Primary Care Provider Active Start: February 12, 2025 End: February 12, 2025 Maribel Clarke BILL OF MATERIALS CLERK, BILL OF MATERIALS CLERK-C Attending Provider Active Start: February 12, 2025 End: February 12, 2025 Maribel Clarke BILL OF MATERIALS CLERK, BILL OF MATERIALS CLERK-C Referring Provider Active Start: February 12, 2025 End: February 12, 2025 Team Status: Inactive Member Role Status Dates Maribel Clarke BILL OF MATERIALS CLERK, BILL OF MATERIALS CLERK-C Primary Care Provider Active Start: March 12, 2025 End: March 12, 2025 Maribel Clarke BILL OF MATERIALS CLERK, BILL OF MATERIALS CLERK-C Attending Provider Active Start: March 12, 2025 End: March 12, 2025 Maribel Clarke BILL OF MATERIALS CLERK, BILL OF MATERIALS CLERK-C Referring Provider Active Start: March 12, 2025 End: March 12, 2025 INFORMATION SOURCE (unrecogn ized section and content) DATE CREATED AUTHOR 03/18/2025 [facility] FOR RECORDS PERTAINING TO PATIENTS WHO ARE [...] BE BASED ON THE PRIMARY CLINICAL RECORDS. [facility]. provides no warranty or guarantee of the accuracy or completeness of information in this document.
== END | disposition home or self-care (01) ==
LOC: MTLAB 09:43
PROVIDERS: PCP Nurse Practitioner; Referring Provider Nurse Practitioner; Visit Provider Nurse Practitioner
DX: E03.9 Hypothyroidism, unspecified (principal)
CPT/HCPCS: 36415; 84443